=== PATIENT | female | born 1980 | race Caucasian/White ===

== ENCOUNTER 2023-07-15 15:36 | Outpatient (OUT) | payer BC, SELFPAY ==
--- NOTE | 2023-07-15 15:44 | MM_ITS ---
Patient: RHONDA WYATT Exam Date: 07/15/2023 : 1980 Gender:F Ordering : DR LISA MITCHELL M.D. Admission #: [id number] Family : Order #: [id number] CLICK HERE TO VIEW EXAM RADIOLOGY REPORT PROCEDURE: MM TOMOSYNTHESIS SCREENING BI COMPARISON: MG MAMM SCREEN 3D MELISSA CAD, 03/15/2021. MG MAMM SCREEN 3D MELISSA CAD, 06/19/2022. INDICATIONS: Screening mammogram Z12.31 Calculator Name NCI Breast Cancer Risk Assessment Tool 5 Year Breast Cancer Risk 0.70% Lifetime Breast Cancer Risk 8.70% Personal Breast Cancer No Personal Ovarian Cancer No Treatments None Family Cancers Aunt-maternal with breast cancer at age 55; Sister with cervical cancer at age 40; Father with lymphoma cancer at age 55; Grandfather-maternal with brain, lung cancer at age 70. LOCATION: [facility] BREAST COMPOSITION: Scattered areas fibroglandular density. FINDINGS: DIAGNOSTIC CATEGORY 1--NEGATIVE. NO CHANGE FROM COMPARISON ASSESSMENT. Scattered benign-appearing calcifications are present. Scattered benign-appearing lymph nodes are present. RIGHT BREAST: No significant suspicious finding. LEFT BREAST: No significant suspicious finding. RECOMMENDATIONS: ROUTINE MAMMOGRAM AND CLINICAL EVALUATION IN 12 MONTHS. PLEASE NOTE: A NORMAL MAMMOGRAM DOES NOT EXCLUDE THE POSSIBILITY OF BREAST CANCER. A CLINICALLY SUSPICIOUS PALPABLE LUMP SHOULD BE BIOPSIED. Dictated by: Yasmani Camacho MD on 07/16/2023 at 08:57 Approved by: Yasmani Camacho MD on 07/16/2023 at 09:13
== END 2023-07-15 15:37 | disposition home or self-care (01) ==
PROVIDERS: PCP Family Medicine; Visit Provider Family Medicine
DX: Z12.31 Encounter for screening mammogram for malignant neoplasm of breast (principal)
CPT/HCPCS: 77063; 77067

== ENCOUNTER 2023-12-17 15:36 | Outpatient (OUT) | payer BC, SELFPAY | END 2023-12-17 15:37 | disposition home or self-care (01) | LOC: LAB 15:36 | PROVIDERS: PCP Family Medicine; Visit Provider Family Medicine | DX: Z83.2 Family history of diseases of the blood and blood-forming organs and certain disorders involving the immune mechanism (principal) | CPT/HCPCS: 36415; 85210 ==

== ENCOUNTER 2024-01-28 20:27 | Outpatient (OUT) | payer BC, SELFPAY ==
--- OUTSIDE RECORDS SUMMARY | 2024-01-28 20:32 | XMS_ITS | CCD ---
Author Organization [facility] Care Team Providers Care Formula Clerk Name Role Phone Julia Mitchell Unavailable PAULA, DR JULIA Sandoval Primary Care Unavailable WEST, DR HERMANN Fernandez Admitting Unavailable WEST, DR HERMANN Fernandez Attending Unavailable WEST, DR HERMANN Fernandez Consulting Unavailable MITCHELL, DR JULIA Sandoval Primary Care Unavailable WEST, DR HERMANN Fernandez Admitting Unavailable WEST, DR HERMANN Fernandez Attending Unavailable WEST, DR HERMANN Fernandez Consulting Unavailable TIMMIS, DR CASTILLO Admitting Unavailable TIMMIS, DR CASTILLO Attending Unavailable TIMMIS, DR CASTILLO Consulting Unavailable MITCHELL, DR JULIA Sandoval Primary Care Unavailable ZIEBER, DR CLIFTON Alfonso Consulting Unavailable OBLIVAR ., DR GUERRERO Admitting Unavailable BOLIVAR ., DR GUERRERO Attending Unavailable BOLIVAR ., DR GUERRERO Consulting Unavailable MITCHELL, DR JULIA Sandoval Primary Care Unavailable MITCHELL, DR JULIA Sandoval Primary Care Unavailable BOLIVAR ., DR GUERRERO Admitting Unavailable BOLIVAR ., DR GUERRERO Attending Unavailable BOLIVAR ., DR GUERRERO Consulting Unavailable ZIEBER, DR CLIFTON Alfonso Consulting Unavailable MITCHELL, DR JULIA Sandoval Primary Care Unavailable TIMMIS, DR CASTILLO Admitting Unavailable TIMMIS, DR CASTILLO Attending Unavailable TIMMIS, DR CASTILLO Consulting Unavailable WEST, DR HERMANN Fernandez Consulting Unavailable MITCHELL, DR JULIA Sandoval Primary Care Unavailable MITCHELL, DR JULIA Sandoval Consulting Unavailable MITCHELL, DR JULIA Sandoval Admitting Unavailable MITCHELL, DR JULIA Sandoval Attending Unavailable Allergies Allergy Classification Reported Allergen(s) Allergy Type Date of Onset Reaction(s) Facility (1 source) Bacitracin Drug Allergy 9 [facility] Repository (2 sources) patient allergy list reviewed by nurse or physicia Propensity to adverse reactions 9 Comment:Done [facility] Other (2 sources) Allergies Reconciled Propensity to adverse reactions Unknown [facility] Other Medications Current Medications Medication Drug Class(es) Dates Sig (Normalized) Sig (Original) levothyroxine sodium 0.125 mg oral tablet (3 sources) l-Thyroxine take 1 tablet by mouth once daily in the morning Levothyroxine Sodium 125 MCG 1 tablet in the morning on an empty stomach Orally Once a day Active take 1 tablet by stefan th once daily in the morning Levothyroxine Sodium 125 MCG 1 tablet in the morning on an empty stomach Orally Once a day Active 24 hr metoprolol succinate 50 mg extended release oral tablet (6 sources) beta-Adrenergic Dustin take 1 tablet by mouth once daily Metoprolol Succinate ER 50 MG TAKE 1 TABLET BY MOUTH EVERY DAY for 90 Active take 1 capsule by mouth once vicenta ly Metoprolol Succinate 50 MG 1 capsule Orally Once a day Active Completed/Discontinued Medications Medication Drug Class(es) Dates Sig (Normalized) Sig (Original) 21 day ethinyl estradiol 0.332103 mg/hr / etonogestrel 0.005 mg/hr vaginal system (5 sources) Progestin, Estrogen NuvaRing 0.1 2-0.015 MG/24HR [address] for 3 weeks, remove, and replace with a new ring after 7 day break Vaginal Not-Taking Problems Active Problems Problem Classification Problem Date Documented Date Episodic/Chronic Anxiety disorders (8 sources) Anxiety; Translations: [Anxiety disorder, unspecified] Chronic Chronic obstructive pulmonary disease and bronchiectasis (2 sources) Bronchitis; Translations: [Bronchitis, not specified as acute or chronic] Episodic Complication of device; implant or graft (2 sources) Unspecified complication of genitourinary prosthetic device, implant and graft, initial encounter; Translations: [Unsp complication of genitourinary prosth dev/grft, init] Episodic Contraceptive and procreative management (4 sources) Surveillance of intrauterine device contraception; Translations: [Encounter for routine checking of intrauterine contraceptive device] Resolved: 04-10-2022 Episodic Essential hypertension (9 sources) Hypertensive disorder; Translations: [Essential (primary) hypertension] Chronic Other nutritional; endocrine; and metabolic disorders (8 sources) Obesity; Translations: [Obesity, unspecified] Chronic Other nutritional; endocrine; and metabolic disorders (6 sources) Obese class I; Translations: [Body mass index (BMI) 33.0-33.9, adult] Chronic Other and delivery including normal (2 sources) test positive; Translations: [Encounter for test, result positive] Episodic Other screening for suspected conditions (not mental disorders or infectious disease) (9 sources) Encounter for screening mammogram for malignant neoplasm of breast; Translations: [Encounter for screening for malignant neoplasm of cervix] Onset: 04-10-2022 Episodic Residual codes; unclassified (1 source) Family history of diseases of the blood and blood-forming organs and certain disorders involving the immune mechanism Episodic Thyroid disorders (20 sources) Franco thyroiditis; Translations: [Autoimmune thyroiditis] Onset: 02-08-2019 Chronic Past or Other Problems Problem Classification Problem Date Documented Date Episodic/Chronic Immunizations and screening for infectious disease (1 source) Encounter for screening for human papillomavirus (HPV); Translations: [ENC SCREENING HUMAN PAPILLOMAVIRUS] Onset: 04-13-2022 Episodic Other nutritional; endocrine; and metabolic disorders (2 sources) Obese class II; Translations: [Body mass index (BMI) 36.0-36.9, adult] Resolved: 04-10-2022 Chronic Residual codes; unclassified (1 source) Family history of malignant neoplasm of breast; Translations: [FAMILY HX MALIG NEOPLASM OF BREAST] Onset: 06-21-2022 Episodic Residual codes; unclassified (1 source) Family history of malignant neoplasm of other genital organs; Translations: [FAM HX MALIG NEOPLSM OTH GENIT ORGN] Onset: 06-21-2022 Episodic Residual codes; unclassified (1 source) Family history of other malignant neoplasms of lymphoid, hematopoietic and related tissues; Translations: [FAM HX OTH MAL RICH LYMPH HEMATPOETC] Onset: 06-21-2022 Episodic Residual codes; unclassified (1 source) Family history of malignant neoplasm of trachea, bronchus and lung; Translations: [FAM HX MALIG NEOPLSM TRACH BRON LNG] Onset: 06-21-2022 Episodic Residual codes; unclassified (1 source) Family history of malignant neoplasm of other organs or systems; Translations: [FAM HX MALIG NEOPLASM OTH ORGN/SYS] Onset: 06-21-2022 Episodic Results Test Name Value Interpretation Reference Range Facility US THYROIDon 01-26-2023 US THYROID EXAMINATION: US THYROID HISTORY: Non-toxic multinodular goiter COMPARISON: 02/08/2022 TECHNIQUE: Sonographic images of the thyroid gland were obtained. FINDINGS: The right thyroid lobe is surgically absent. Area of soft tissue in the right thyroid fossa measuring 1.5 x 0.9 x 1.0 cm, residual versus recurrent tissue versus postsurgical change, stable The thyroid isthmus measures 2 mm, heterogeneous. No focal nodule. The left thyroid lobe measures 4.2 x 2.3 x 2.2 cm. Very heterogeneous echotexture. Single nodule. Nodule 1:1.3 x 1.2 x 1.0 cm. Mixed solid and cystic, hypoechoic, wide, smooth margins, no calcifications. TR 3 IMPRESSION: Stable 1.3 cm left thyroid TR 3 nodule TI-RADS: The [employer] TI-RADS committee's white paper recommendations for thyroid lesions classified as TR3 (mildly suspicious) are listed below: > 1.5 cm. Follow-up ultrasound in 1, 3, and 5 years. > 2.5 cm. FNA. J. Am Marcella Radiol 2017;14:[id number]. Electronically authenticated by: HERMANN GUZMAN Date: 2023-01-26 09:07 Normal [facility] CBC AUTO DIFFon 11-16-2022 BASO # 0.0 103/ul Normal 0.0-0.1 [facility] Comment on above: Performed By: #### C BC #### [facility] [address] [place] [address] Dr. Chanel Manriquez Basophils/100 WBC (Bld) 0.6 % Normal 0.2-2.0 [facility] Comment on above: Performed By: #### C BC #### [facility] [address] [place] [address] Dr. Chanel Manriquez EO # 0.3 103/ul Normal 0.0-0.7 [facility] Comment on above: Performed By: #### C BC #### [facility] [address] [address] [address] Chanel Manriquez Eosinophils/100 WBC (Bld) 4.9 % Normal 0.9-7.0 [facility] Comment on above: Performed By: #### C BC #### [facility] [address] [place] [address] Dr. Chanel Manriquez Erythrocyte distribution width (RBC) [Ratio] 13.1 % Normal 11.0-15.0 [facility] Comment on above: Performed By: #### C BC #### [facility] [address] [place] [address] Dr. Chanel Manriquez Hematocrit (Bld) [Volume fraction] 39.7 % Normal 36.0-48.0 [facility] Comment on above: Performed By: #### C BC #### [facility] [address] [place] [address] Dr. Chanel Manriquez Hemoglobin (Bld) [Mass/Vol] 13.5 g/dL Normal 12.0-16.0 [facility] Comment on above: Performed By: #### C BC #### [facility] [address] [place] [address] Dr. Chanel Manriquez IG # 0.02 10e3/ul Normal 0.00-0.03 [facility] Comment on above: Performed By: #### C BC #### [facility] [address] [place] [address] Dr. Chanel Manriquez IG % 0.3 % Normal 0.0-0.5 [facility] Comment on above: Performed By: #### C BC #### [facility] [address] [place] [address] Dr. Chanel Manriquez LYMPH # 1.2 103/ul Normal 1.2-3.8 [facility] Comment on above: Performed By: #### C BC #### [facility] [address] [place] [address] Dr. Chanel Manriquez Lymphocytes/100 WBC (Bld) 18.5 % Critically low 20.5-60.0 [facility] Comment on above: Performed By: #### C BC #### [facility] [address] [place] [address] Dr. Chanel Manriquez MANUAL DIFF REQ NO Normal [facility] Comment on above: Performed By: #### C BC #### [facility] [address] [place] [address] Dr. Chanel Manriquez MCH (RBC) [Entitic mass] 28.9 pg Normal 26.7-34.0 [facility] Comment on above: Performed By: #### C BC #### [facility] [address] [address] [address] Chanel Manriquez MCHC (RBC) [Mass/Vol] 34.0 g/dL Normal 29.9-35.2 [facility] Comment on above: Performed By: #### C BC #### [facility] [address] [place] [address] Dr. Chanel Manriquez MCV (RBC) [Entitic vol] 85.0 fL Normal 81.0-99.0 [facility] Comment on above: Performed By: #### C BC #### [facility] [address] [place] [address] Dr. Chanel Manriquez MONO # 0.7 103/ul Normal 0.3-0.8 [facility] Comment on above: Performed By: #### C BC #### [facility] [address] [place] [address] Dr. Chanel Manriquez Monocytes/100 WBC (Bld) 10.7 % Normal 1.7-12.0 [facility] Comment on above: Performed By: #### C BC #### [facility] [address] [place] [address] Dr. Chanel Manriquez NEUT # 4.1 103/ul Normal 1.4-6.5 [facility] Comment on above: Performed By: #### C BC #### [facility] [address] [place] [address] Dr. Chanel Manriquez Neutrophils/100 WBC (Bld) 65.0 % Normal 43.0-75.0 [facility] Comment on above: Performed By: #### C BC #### [facility] [address] [place] [address] Dr. Chanel Manriquez Platelet mean volume (Bld) [Entitic vol] 9.3 fL Critically low 9.5-13.5 [facility] Comment on above: Performed By: #### C BC #### [facility] [address] [place] [address] Dr. Chanel Manriquez PLT 271 103/ul Normal 150-450 [facility] Comment on above: Performed By: #### C BC #### [facility] [address] [address] [address] Chanel Manriquez RBC 4.67 106/ul Normal 4.20-5.40 [facility] Comment on above: Performed By: #### C BC #### [facility] [address] [address] [address] Chanel Manriquez WBC 6.3 103/ul Normal 4.0-11.0 [facility] Comment on above: Performed By: #### C BC #### [facility] [address] [place] [address] Dr. Chanel Manriquez GLYCOHEMOGLOBIN A1Con 2022 ADA RECOMMENDATION SEE BELOW Normal [facility] Comment on above: Result Comment: ADA RECOMMENDED LIMIT 4.0 - 6.0 ADA THERAPEUTIC TARGET < 7.0 ACTION SUGGESTED > 7.0 Performed By: #### A 1C #### [facility] [address] [place] [address] Dr. Chanel Manriquez Glucose [Mass/Vol] 108 mg/dL Normal [facility] Comment on above: Performed By: #### A 1C #### [facility] [address] [place] [address] Dr. Chanel Manriquez HbA1c (Bld) [Mass fraction] 5.4 % Normal 4.5-6.2 [facility] Comment on above: Performed By: #### A 1C #### [facility] [address] [place] [address] Dr. Chanel Manriquez LIPID PROFILEon 11-16-2022 CHOL-HDL RATIO NORM SEE BELOW Normal [facility] Comment on above: Result Comment: 3.3 - 4.4 LOW RISK 4.4 - 7.1 AVERAGE RISK 7.1 - 11.0 MODERATE RISK >11.0 HIGH RISK Performed By: #### T SH, CMP, LIPID #### [facility] [address] [place] [address] Dr. Chanel Manriquez Cholesterol [Mass/Vol] 135 mg/dL Normal <=200 [facility] Comment on above: Performed By: #### T SH, CMP, LIPID #### [facility] [address] [place] [address] Dr. Chanel Manriquez Cholesterol in HDL [Mass/Vol] 40 mg/dL Normal 40-60 [facility] Comment on above: Performed By: #### T SH, CMP, LIPID #### [facility] [address] [address] [address] Chanel Manriquez Cholesterol in LDL [Mass/Vol] 80.4 mg/dL Normal [facility] Comment on above: Performed By: #### T SH, CMP, LIPID #### [facility] [address] [address] [address] Chanel Manriquez Cholesterol.total/Cho lesterol in HDL [Mass ratio] 3.4 {ratio} Normal [facility] Comment on above: Performed By: #### T SH, CMP, LIPID #### [facility] [address] [place] [address] Dr. Chanel Manriquez HDL NORMAL > or = 60 mg/dl - LO W CARDIOVASCULAR RISK <40 mg/dl - HIGH CARDIOVASCULAR RISK Normal [facility] Comment on above: Performed By: #### T SH, CMP, LIPID #### [facility] [address] [place] [address] Dr. Chanel Manriquez LDL CALC NORMAL SEE BELOW Normal [facility] Comment on above: Result Comment: <100 mg/dl OPTIMAL 100 - 129 mg/dl NEAR OR ABOVE OPTIMAL 130 - 159 mg/dl BORDERLINE HIGH 160 - 189 mg/dl HIGH >190 mg/dl VERY HIGH Performed By: #### T SH, CMP, LIPID #### [facility] [address] [place] [address] Dr. Chanel Manriquez Triglyceride [Mass/Vol] 73 mg/dL Normal <=150 [facility] Comment on above: Performed By: #### T SH, CMP, LIPID #### [facility] [address] [place] [address] Dr. Chanel Manriquez VLDL CALC 14.6 mg/dL Normal [facility] Comment on above: Performed By: #### T SH, CMP, LIPID #### [facility] [address] [place] [address] Dr. Chanel Manriquez PROF 14(COMP METB)on 01-14-2 023 Albumin [Mass/Vol] 3.4 g/dL Normal 3.4-5.0 [facility] Comment on above: Performed By: #### T SH, CMP, LIPID #### [facility] [address] [address] [address] Chanel Manriquez Albumin/Globulin [Mass ratio] 0.9 {ratio} Normal [facility] Comment on above: Performed By: #### T SH, CMP, LIPID #### [facility] [address] [address] [address] Chanel Manriquez ALP [Catalytic activity/Vol] 62 U/L Normal 46-116 [facility] Comment on above: Performed By: #### T CAROL, CMP, LIPID #### [facility] [address] [address] [address] Chanel Manriquez ALT [Catalytic activity/Vol] 17 U/L Normal 14-59 [facility] Comment on above: Performed By: #### T CAROL, CMP, LIPID #### [facility] [address] [address] [address] Chanel Manriquez Anion gap [Moles/Vol] 10.5 mmol/L Normal [facility] Comment on above: Performed By: #### T CAROL, CMP, LIPID #### [facility] [address] [address] [address] Chanel Manriquez AST [Catalytic activity/Vol] 15 U/L Normal 15-37 [facility] Comment on above: Performed By: #### T CAROL, CMP, LIPID #### [facility] [address] [address] [address] Chanel Manriquez Bilirubin [Mass/Vol] 0.5 mg/dL Normal 0.2-1.0 [facility] Comment on above: Performed By: #### T SH, CMP, LIPID #### [facility] [address] [address] [address] Chanel Manriquez Calcium [Mass/Vol] 8.7 mg/dL Normal 8.5-10.1 [facility] Comment on above: Performed By: #### T SH, CMP, LIPID #### [facility] [address] [address] [address] Chanel Manriquez Chloride [Moles/Vol] 104 mmol/L Normal 98-107 [facility] Comment on above: Performed By: #### T SH, CMP, LIPID #### [facility] [address] [address] [address] Chanel Manriquez CO2 [Moles/Vol] 28.4 mmol/L Normal 21.0-32.0 [facility] Comment on above: Performed By: #### T SH, CMP, LIPID #### [facility] [address] [place] [address] Dr. Chanel Manriquez Creatinine [Mass/Vol] 0.79 mg/dL Normal 0.55-1.02 [facility] Comment on above: Performed By: #### T CAROL, CMP, LIPID #### [facility] [address] [place] [address] Dr. Chanel Manriquez EGFR-AF CUBAN >60 Normal >=60 [facility] Comment on above: Performed By: #### T CAROL, CMP, LIPID #### [facility] [address] [place] [address] Dr. Chanel Manriquez EGFR-NON AF CUBAN >60 Normal >=60 [facility] Comment on above: Performed By: #### T CAROL CMP, LIPID #### [facility] [address] [place] [address] Dr. Chanel Manriquez Globulin (S) [Mass/Vol] 3.9 g/dL Normal [facility] Comment on above: Performed By: #### T CAROL, CMP, LIPID #### [facility] [address] [place] [address] Dr. Chanel Manriquez Glucose [Mass/Vol] 101 mg/dL Normal 74-106 [facility] Comment on above: Performed By: #### T SH, CMP, LIPID #### [facility] [address] [place] [address] Dr. Chanel Manriquez Potassium [Moles/Vol] 3.9 mmol/L Normal 3.5-5.1 [facility] Comment on above: Performed By: #### T SH, CMP, LIPID #### [facility] [address] [address] [address] Chanel Manriquez Protein [Mass/Vol] 7.3 g/dL Normal 6.4-8.2 [facility] Comment on above: Performed By: #### T SH, CMP, LIPID #### [facility] [address] [address] [address] Chanel Manriquez Sodium [Moles/Vol] 139 mmol/L Normal 136-145 [facility] Comment on above: Performed By: #### T SH, CMP, LIPID #### [facility] [address] [address] [address] Chanel Manriquez Urea nitrogen [Mass/Vol] 13.0 mg/dL Normal 7.0-18.0 [facility] Comment on above: Performed By: #### T SH, CMP, LIPID #### [facility] [address] [address] [address] Chanel Manriquez Urea nitrogen/Creatinine [Mass ratio] 16.5 mg/mg Normal [facility] Comment on above: Performed By: #### T SH, CMP, LIPID #### [facility] [address] [address] [address] Chanel Manriquez TSHon 11-16-2022 TSH 3.672 uIU/mL Normal 0.358-3.740 [facility] Comment on above: Performed By: #### T SH, CMP, LIPID #### [facility] [address] [address] [address] Chanel Manriquez MG MAMM SCREEN 3D MELISSA CADon 06-19-2022 MG MAMM SCREEN 3D MELISSA CAD Patient: RHONDA WYATT Exam Date: 06/19/2022 : 1980 Gender:F Ordering : DR CESAR LUTZ . Admission #: [id number] Family : DR JULIA MITCHELL M.D. Order #: [id number] CLICK HERE TO VIEW EXAM RADIOLOGY REPORT PROCEDURE: MAMMOGRAM SCREENING 3D BILATERAL CAD COMPARISON: MG MAMM SCREEN 3D MELISSA CAD, 03/15/2021. MG MAMM SCREEN MELISSA W CAD, 09/14/2019. INDICATIONS: Screening mammography Calculator Name NCI Breast Cancer Risk Assessment Tool 5 Year Breast Cancer Risk 0.60% Lifetime Breast Cancer Risk 8.80% Personal Breast Cancer No Personal Ovarian Cancer No Treatments None Family Cancers Aunt-maternal with breast cancer at age 55; Sister with cervical cancer at age 40; Father with lymphoma cancer at age 55; Grandfather-maternal with brain, lung cancer at age 70. LOCATION: [facility] BREAST COMPOSITION: Scattered areas fibroglandular density. FINDINGS: DIAGNOSTIC CATEGORY 1--NEGATIVE. RIGHT BREAST: No significant suspicious finding. No significant change has occurred. LEFT BREAST: No significant suspicious finding. No significant change has occurred. RECOMMENDATIONS: ROUTINE MAMMOGRAM AND CLINICAL EVALUATION IN 12 MONTHS. PLEASE NOTE: A NORMAL MAMMOGRAM DOES NOT EXCLUDE THE POSSIBILITY OF BREAST CANCER. A CLINICALLY SUSPICIOUS PALPABLE LUMP SHOULD BE BIOPSIED. Dictated by: Clifton Huntley M.D. on 06/20/2022 at 14:00 Approved by: Clifton Huntley M.D. on 06/20/2022 at 14:07 Normal [facility] PAP ACOG PANEL 2: 30 to 65on 04-16-2022 . . Normal [facility] Comment on above: Result Comment: Perf ormed at: WB Performed By: #### [id number] #### [facility] [address] [address] [address] Chanel Manriquez Age Gdln ACOG Testing 30-65 Normal [facility] Comment on above: Performed By: #### [id number] #### [facility] [address] [address] [address] Chanel Manriquez DIAGNOSIS: Comment Normal [facility] Comment on above: Result Comment: NEGA TIVE FOR INTRAEPITHELIAL LESION OR MALIGNANCY. Performed at: WB Performed By: #### [id number] #### [facility] [address] [address] [address] Chanel Manriquez HPV Aptima Negative Normal Negative [facility] Comment on above: Result Comment: This nucleic acid amplification test detects fourteen high-risk HPV types (16,18,31,33,35,39,45,51,52,56,58,59,66,68) without differentiation. Performed at: =G Performed By: #### [id number] #### [facility] [address] [place] [address] Dr. Chanel Manriquez Methodology: Comment Normal [facility] Comment on above: Result Comment: This liquid based ThinPrep(R) pap test was screened with the use of an image guided system. Performed at: WB Performed By: #### [id number] #### [facility] [address] [place] [address] Dr. Chanel Manriquez Note: Comment Normal [facility] Comment on above: Result Comment: The Pap smear is a screening test designed to aid in the detection of premalignant and malignant conditions of the uterine cervix. It is not a diagnostic procedure and should not be used as the sole means of detecting cervical cancer. Both false-positive and false-negative reports do occur. . Performed at: WB Performed By: #### [id number] #### [facility] [address] [place] [address] Dr. Chanel Manriquez Performed by: Comment Normal [facility] Comment on above: Result Comment: Jasbir Young, Tankage Supervisor (ASCP) Performed at: [facility] Performed By: [id number] #### [facility] [address] [place] [address] Dr. Chanel Manriquez Specimen adequacy: Comment Normal [facility] Comment on above: Result Comment: Sati sfactory for evaluation. Endocervical and/or squamous metaplastic cells (endocervical component) are present. Performed at: [facility] Performed By: #### [id number] #### [facility] [address] [place] [address] Dr. Chanel Manriquez US THYROIDon 02-09-2022 US THYROID EXAMINATION: US THYROID HISTORY: Non-toxic multinodular goiter COMPARISON: Ultrasound thyroid 08/06/2021 FINDINGS: RIGHT LOBE: Prior right lobectomy. Slightly heterogeneous soft tissue within right thyroid bed, 1.3 x 0.6 x 0.7 cm. LEFT LOBE: Contains a 1.2 cm TR 4 nodule. Heterogeneous, hypervascular lobe. Lobe size: 4.1 x 2.3 x 2.0 cm ISTHMUS: Slightly heterogeneous echotexture, but normal size. Thickness: 3 mm IMPRESSION: 1. History of right lobectomy. Stable residual tissue within the right lobe. No overtly suspicious findings. 2. Stable hypervascular markedly heterogeneous left lobe, which also contains a stable TR4 1.2 cm nodule. Follow-up imaging in one year is recommended. TR 4: The [employer] TI-RADS committee's white paper recommendations for thyroid lesions classified as TR4 (moderately suspicious) are listed below: > 1.0 cm. Follow-up ultrasound in 1, 2, 3, and 5 years. > 1.5 cm. FNA. J. Am Marcella Radiol 2017;14:587-595. Electronically authenticated by: CLIFTON HUNTLEY Date: 2022-02-09 10:40 Normal [facility] SURGICAL PATHOLOGYon 019 SURGICAL PATHOLOGY Specimen #: [id number] Submitting Physician: GIDEON PRYOR MD FINAL DIAGNOSIS Outside slides [id number], [id number], B1; 04/06/2019; [facility], [place]: 1. 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 - Chronic lymphocytic thyroiditis with lymphoepithelial cysts, patchy fibrosis and reactive epithelial atypia. - Parathyroid gland tissue. - See comment. 2. Anterior compartment dissection specimen, excision (B): - Lymph node, negative for neoplasm. COMMENT Thank you for sharing this challenging case. There is a microscopic focus of papillary thyroid carcinoma (0.2 cm) on slide A9. It is the infiltrative follicular variant. Although these cells have abundant eosinophilic cytoplasm, they are not quite tall. Lymphovascular invasion and extrathyroidal extension were not identified. This carcinoma does not involve the inked edges of the tissue sections. Dr. Vicki Badillo, a colleague on the [facility] head and neck pathology service was consulted, and she agrees with the diagnoses. If you would like to discuss this case, please contact my office at [phone]. [facility]/kmr 04/12/19 Efraín Wayne M.D. (Electronic Signature) ____ SPECIMEN SUBMITTED A: 17 SLIDES ([id number]) CLINICAL DATA None provided. SLIDE/BLOCK DESCRIPTION A. 17 SLIDES ([id number]): Date of Report: 04/13/2019 Date of Procedure: 04/09/2019 Date of Receipt: 04/09/2019 Submitted by: GIDEON PRYOR MD Location: Diagnostic interpretation performed at [facility], [address] [place] [address]. CLIA Number: [id number] Normal [facility] Comment on above: Performed By: #### S #### See report for performing lab information. Vital Signs Date Time Vital Sign Value Performing Clinician Facility 12-08-2023 15:00-0500 Body height 154.94 cm Julia Mitchell Other [facility] 12-08-2023 15:00-0500 Body mass index (BMI) [Ratio] 35.33 kg/m2 Julia Mitchell Other [facility] 12-08-2023 15:00-0500 Body weight 84.82 kg Julia Mitchell Other [facility] Other 12-08-2023 15:00-0500 Diastolic blood pressure 81 mm[Hg] Julia Mitchell Other [facility] Other 12-08-2023 15:00-0500 Systolic blood pressure 121 mm[Hg] Julia Mitchell Other [facility] Other 02-04-2023 11:00-0400 Body height 154.94 cm Julia Mitchell Other [facility] Other 02-04-2023 11:00-0400 Body mass index (BMI) [Ratio] 35.9 kg/m2 Julia Mitchell Other [facility] Other 02-04-2023 11:00-0400 Body weight 86.18 kg Julia Mitchell Other [facility] Other 02-04-2023 11:00-0400 Diastolic blood pressure 82 mm[Hg] Julia Mitchell Other [facility] Other 02-04-2023 11:00-0400 SaO2% (BldA) [Mass fraction] 97 % Julia Mitchell Other [facility] Other 02-04-2023 11:00-0400 Systolic blood pressure 122 mm[Hg] Julia Mitchell Other [facility] Other 11-21-2022 16:00-0500 Body height 154.94 cm Julia Mitchell Other [facility] Other 11-21-2022 16:00-0500 Body mass index (BMI) [Ratio] 36.46 kg/m2 Julia Mitchell Other [facility] Other 11-21-2022 16:00-0500 Body weight 87.54 kg Julia Mitchell Other [facility] Other 11-21-2022 16:00-0500 Diastolic blood pressure 88 mm[Hg] Julia Mitchell Other [facility] Other 11-21-2022 16:00-0500 SaO2% (BldA) [Mass fraction] 97 % Julia Mitchell Other [facility] Other 11-21-2022 16:00-0500 Systolic blood pressure 132 mm[Hg] Julia Mitchell Other [facility] Other Encounters Encounter Date Encounter Type Care Provider Facility Start: 12-08-2023 End: 12-08-2023 ambulatory Julia Mitchell Other [facility] Other Start: 12-08-2023 Encounter for genera l adult medical examination without abnormal findings Julia Mitchell [facility] Start: 12-08-2023 Periodic preventive med est patient 40-64yrs Julia Mitchell [facility] Start: 07-02-2023 End: 07-02-2023 ambulatory Julia Mitchell Other [facility] Other Start: 07-02-2023 Telephone encounter Julia Mitchell [facility] Start: 02-04-2023 End: 02-04-2023 ambulatory Julia Mitchell Other [facility] Other Start: 02-04-2023 Office outpatient vi sit 15 minutes Julia Mitchell [facility] Start: 01-31-2023 End: 01-31-2023 ambulatory Julia Mitchell Other [facility] Other Start: 01-31-2023 Telephone encounter Julia Mitchell [facility] Start: 01-25-2023 End: 01-26-[address] JULIA MITCHELL Facility:[facility] Start: 01-15-[address] JULIA MITCHELL Facil ity:[facility] Start: 11-22-2022 Encounter for genera l adult medical examination without abnormal findings DR JULIA MITCHLEL [facility] Start: 11-21-2022 End: 11-21-2022 ambulatory Julia Mitchell Other [facility] Other Start: 11-21-2022 Encounter for genera l adult medical examination without abnormal findings Julia Mitchell [facility] Start: 11-21-2022 Periodic preventive med est patient 40-64yrs Julia Mitchell [facility] Start: 11-16-2022 End: 11-17-[address] JULIA MITCHELL Facility:[facility] Start: 11-16-2022 End: 11-17-2022 Encounter for general adult medical examination without abnormal findings DR JULIA MITCHELL Facility:[facility] Start: 11-13-2022 End: 11-13-2022 ambulatory Julia Mitchell Other [facility] Other Start: 11-13-2022 Encounter for genera l adult medical examination without abnormal findings Julia Mitchell [facility] Start: 11-13-2022 Telephone encounter Julia Mitchell [facility] Start: 08-13-2022 End: 11-22-[address] JULIA MITCHELL Facility:[facility] Start: 06-19-2022 End: 06-20-[address] JULIA MITCHELL Facility:[facility] Start: 04-10-2022 End: 04-10-[address] CESAR LUTZ . Facility:[facility] Start: 04-10-2022 Gynecological examin ation normal Julia Mitchell Other [facility] Other Start: 02-08-2022 End: 02-09-[address] JONATHAN FERNÁNDEZ Facility:[facility] Start: 03-13-2021 Adult health examination Lou isra Paula Other [facility] Other Procedures Date Procedure Procedure Detail Performing Clinician Start: 04-10-2022 Screening for malign ant neoplasm of breast Julia Mitchell Other Start: 10-30-2021 Removal of intrauter ine device Julia Mitchell Other Start: 02-15-2019 General examination of patient Julia Mitchell Other Contraception care education Julia Mitchell Other Insertion of intraut erine contraceptive device Julia Mitchell Other Screening for malign ant neoplasm of skin Julia Mitchell Other Payers Date Payer Category Payer [facility] [id number] 2019 Unknown [id number] 1980 Unknown [id number] 2.16.84 [id number] 1980 Unknown [id number] 2.16.84 [id number] 1978 Unknown [id number] 2.16.84 [id number] 1978 Unknown [id number] 2.16.84 [id number] 1978 Unknown [id number] 2.16.84 [id number] 1978 Unknown [id number] 2.16.84 [id number] 1978 Unknown [id number] 2.16.84 [id number] 1961 Self-pay Social History Date Type Detail Facility Sex Assigned At [facility] Other Evaluation note 12-08-2023 Note Date & Type Note Facility 12-08-2023 Evaluation note Encounter Date Diagnosis Assessment Notes Dec, Well adult exam (ICD-10 - Z00.00) We have discussed the necessity of following up with PCP regularly as well as specialists, as needed. Discussed F/U with dentistry and optometry at least yearly. Discussed all preventative measures/ cancer screenings as applicable to this patient. Emphasized the importance of a reduced fat, low carb diet to promote heart health and controlled blood sugars. Reviewed social history and ensured patient is safe within the home today. Pt denies any abuse of alcohol, nicotine, caffeine or recreational drugs. I have ensured patient is of stable mental and physical health today. We have discussed appropriate F/U schedule as well as blood work and vaccinations that apply. All questions answered and patient is sent home pleased, without concerns. Dec, Family history of clotting disorder (ICD-10 - Z83.2) Handwrote order for prothrombin gene mutation factor 2 test at the lab. Discussed potential referral to hematology for further guidance if her test is positive. [facility] Other Evaluation note 07-02-2023 Note Date & Type Note Facility 07-02-2023 Evaluation note Encounter Date Diagnosis Assessment Notes Jun, Screening mammogram for breast cancer (ICD-10 - Z12.31) [facility] Other Evaluation note 02-04-2023 Note Date & Type Note Facility 02-04-2023 Evaluation note Encounter Date Diagnosis Assessment Notes Feb, Hypertension (ICD-10 - I10) Present readings are normal. Continue present med. Discussed decreasing salt and starting exercise to improve BP. Would not add or increase BP med at this time. Pt in agreement. [facility] Other Evaluation note 11-21-2022 Note Date & Type Note Facility 11-21-2022 Evaluation note Encounter Date Diagnosis Assessment Notes Nov, Well adult exam (ICD-10 - Z00.00) Personalized health advice was given to the beneficiary to health education of preventative counseling services or programs aimed at reducing identified risk factors and improving self-management or community-based lifestyle interventions to reduce health risks and promote self-management and wellness, including physical activity and nutrition. A written plan for screenings was discussed, flu vaccination, routine lab studies, eye exams, as well as risk factors for other medical problems. 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 [facility] Other Evaluation note 11-13-2022 Note Date & Type Note Facility 11-13-2022 Evaluation note Encounter Date Diagnosis Assessment Notes Nov, Wellness examination (ICD-10 - Z00.00) [facility] Other Evaluation note Note Date & Type Note Facility Evaluation note No Information [facility] Other History general Narrative - Reported Note Date & Type Note Facility History general Narrative - Reported Type Medical History [facility] Medical History Hshimoto's disease Medical History Hypertension Medical History Hypothyroidism Medical History Anxiety Surgical History C section x2 Surgical History Right Carpal Tunnel Surgical History Thyroidectomy (right) Surgical History Thyroidectomy (piece of left) [facility] Other History general Narrative - Reported Note Date & Type Note Facility History general Narrative - Reported Type Medical History [facility] Medical History Hshimoto's disease Medical History Hypertension Medical History Hypothyroidism Medical History Anxiety Surgical History C section x2 Surgical History Right Carpal Tunnel Surgical History Thyroidectomy (right) Surgical History Thyroidectomy (piece of left) Hospitalization History SEE SURGICAL HX [facility] Other Summary Purpose Family History No Family History Records FoundNo Family History Records Found Advance Directives No Advanced Directives Records FoundNo Advanced Directives Records Found Additional Source Comments INFORMATION SOURCE (unrecogn ized section and content) DATE CREATED AUTHOR 04/14/2019 [facility] DATE CREATED AUTHOR AUTHOR'S ORGANIZ ATION 02/01/2023 [facility] REASON FOR VISIT (unrecogniz ed section and content) Lab orderswellnessBlood Pres sureBlood PressureNo Informationwellness FOR RECORDS PERTAINING TO PATIENTS WHO ARE OR HAVE BEEN ENROLLED IN A CHEMICAL DEPENDENCY/SUBSTANCEABUSE PROGRAM, SOME INFORMATION MAY BE OMITTED. This clinical summary was aggregated from multiple sources. Caution should be exercised in using it in the provision of clinical care. This summary normalizes information from multiple sources, and as a consequence, information in this document may materially change the coding, format and clinical context of patient data. In addition, data may be omitted in some cases. CLINICAL DECISIONS SHOULD BE BASED ON THE PRIMARY CLINICAL RECORDS. [employer] provides no warranty or guarantee of the accuracy or completeness of information in this document.
--- NOTE | 2024-01-28 20:33 | US_ITS ---
[address] [address] Patient Name: RHONDA WYATT MRN: [id number] date: 1980 Sex: F Assigned Patient Location: US Current Patient Location: Accession/Order Number: [id number] Exam Date: 01/28/2024 20:36 Report Date: 01/29/2024 07:34 At the request of: JONATHAN FERNÁNDEZ Procedure: US thyroid EXAMINATION: US thyroid HISTORY: PAPILLARY CARCINOMA OF THYROID C73 COMPARISON: 01/25/2023 TECHNIQUE: Sonographic images of the thyroid gland were obtained. FINDINGS: The right thyroid lobe is surgically absent. Identified in the right thyroid fossa is a 1.3 x 0.5 x 1.1 cm area of hypoechogenicity, postsurgical change versus residual/recurrent thyroid tissue The thyroid isthmus measures 1.8 mm. No focal nodule. The left thyroid lobe measures 3.8 x 2.0 x 1.7 cm., Regenia 6 echotexture with diffuse hypervascularity. Single focal nodule. Nodule 1:1.5 x 1.4 x 1.4 cm. Mixed solid and cystic, hypoechoic, wide, lobular margins, no calcifications. TR 4 Normal size normal morphology lymph node right thyroid fossa US/US thyroid IMPRESSION: Slight interval increase in size of a now 1.5 cm left thyroid TR 4 nodule Heterogeneous hypervascular thyroid lobe suggesting thyroiditis TI-RADS: The [employer] TI-RADS committee's white paper recommendations for thyroid lesions classified as TR4 (moderately suspicious) are listed below: > 1.0 cm. Follow-up ultrasound in 1, 2, 3, and 5 years. > 1.5 cm. FNA. J. Am Marcella Radiol 2017;14:587-595. Electronically authenticated by: HERMANN GUZMAN Date: 01/29/2024 07:34
== END 2024-01-28 20:28 | disposition home or self-care (01) ==
PROVIDERS: PCP Family Medicine; Visit Provider Otolaryngology
DX: C73 Malignant neoplasm of thyroid gland (principal)
CPT/HCPCS: 76536

== ENCOUNTER 2024-02-07 06:47 | Outpatient (OUT) | payer BC, SELFPAY ==
--- OUTSIDE RECORDS SUMMARY | 2024-02-07 06:49 | XMS_ITS | CCD ---
Author Organization [facility] Care Team Providers Care Distribution Lead Name Role Phone Julia Mitchell Unavailable PAULA, [...] Unavailable ZIEBER, DR CLIFTON [employer] Unavailable BOLIVAR ., DR GUERRERO Admitting Unavailable [...] (1 source) Bacitracin Drug Allergy 9 [facility] Repository (2 sources) patient allergy list reviewed by nurse or physicia Propensity to adverse reactions 9 Comment:Done [facility] Other (2 sources) Allergies Reconciled Propensity to adverse reactions Unknown [facility] Other Medications Current Medications Medication Drug Class(es) [...] (Normalized) Sig (Original) 21 day ethinyl estradiol 0.038737 mg/hr / etonogestrel 0.005 mg/hr vaginal system [...] immune mechanism Episodic Thyroid disorders (20 sources) Frnaco thyroiditis; Translations: [Autoimmune thyroiditis] Onset: 02-08-2019 Chronic [...] left thyroid TR 3 nodule TI-RADS: The [employer] TI-RADS committee's white paper recommendations for thyroid lesions classified as TR3 (mildly suspicious) are listed below: > 1.5 cm. Follow-up ultrasound in 1, 3, and 5 years. > 2.5 cm. FNA. J. Am Marcella Radiol 2017;14:587-595. Electronically authenticated by: HERMANN GUZMAN Date: 2023-01-26 09:07 Normal [facility] CBC AUTO DIFFon 11-16-2022 BASO # 0.0 103/ul Normal 0.0-0.1 [facility] Comment on above: Performed By: #### C BC #### [facility] [address] [place] [address] Dr. Chanel Manriquez Basophils/100 WBC (Bld) 0.6 % Normal 0.2-2.0 [facility] Comment on above: Performed By: #### C BC #### [facility] [address] [place] [address] Dr. Chanel Manriquez EO # 0.3 103/ul Normal 0.0-0.7 [facility] Comment on above: Performed By: #### C BC #### [facility] [address] [address] [address] Chanel Manriquez Eosinophils/100 WBC (Bld) 4.9 % Normal 0.9-7.0 [facility] Comment on above: Performed By: #### C BC #### [facility] [address] [place] [address] Dr. Chanel Manriquez Erythrocyte distribution width (RBC) [Ratio] 13.1 % Normal 11.0-15.0 [facility] Comment on above: Performed By: #### C BC #### [facility] [address] [place] [address] Dr. Chanel Manriquez Hematocrit (Bld) [Volume fraction] 39.7 % Normal 36.0-48.0 [facility] Comment on above: Performed By: #### C BC #### [facility] [address] [place] [address] Dr. Chanel Manriquez Hemoglobin (Bld) [Mass/Vol] 13.5 g/dL Normal 12.0-16.0 [facility] Comment on above: Performed By: #### C BC #### [facility] [address] [place] [address] Dr. Chanel Manriquez IG # 0.02 10e3/ul Normal 0.00-0.03 [facility] Comment on above: Performed By: #### C BC #### [facility] [address] [place] [address] Dr. Chanel Manriquez IG % 0.3 % Normal 0.0-0.5 [facility] Comment on above: Performed By: #### C BC #### [facility] [address] [place] [address] Dr. Chanel Manriquez LYMPH # 1.2 103/ul Normal 1.2-3.8 [facility] Comment on above: Performed By: #### C BC #### [facility] [address] [place] [address] Dr. Chanel Manriquez Lymphocytes/100 WBC (Bld) 18.5 % Critically low 20.5-60.0 [facility] Comment on above: Performed By: #### C BC #### [facility] [address] [place] [address] Dr. Chanel Manriquez MANUAL DIFF REQ NO Normal [facility] Comment on above: Performed By: #### C BC #### [facility] [address] [place] [address] Dr. Chanel Manriquez MCH (RBC) [Entitic mass] 28.9 pg Normal 26.7-34.0 [facility] Comment on above: Performed By: #### C BC #### [facility] [address] [address] [address] Chanel Manriquez MCHC (RBC) [Mass/Vol] 34.0 g/dL Normal 29.9-35.2 [facility] Comment on above: Performed By: #### C BC #### [facility] [address] [place] [address] Dr. Chanel Manriquez MCV (RBC) [Entitic vol] 85.0 fL Normal 81.0-99.0 [facility] Comment on above: Performed By: #### C BC #### [facility] [address] [place] [address] Dr. Chanel Manriquez MONO # 0.7 103/ul Normal 0.3-0.8 [facility] Comment on above: Performed By: #### C BC #### [facility] [address] [place] [address] Dr. Chanel Manriquez Monocytes/100 WBC (Bld) 10.7 % Normal 1.7-12.0 [facility] Comment on above: Performed By: #### C BC #### [facility] [address] [place] [address] Dr. Chanel Manriquez NEUT # 4.1 103/ul Normal 1.4-6.5 [facility] Comment on above: Performed By: #### C BC #### [facility] [address] [place] [address] Dr. Chanel Manriquez Neutrophils/100 WBC (Bld) 65.0 % Normal 43.0-75.0 [facility] Comment on above: Performed By: #### C BC #### [facility] [address] [place] [address] Dr. Chanel Manriquez Platelet mean volume (Bld) [Entitic vol] 9.3 fL Critically low 9.5-13.5 [facility] Comment on above: Performed By: #### C BC #### [facility] [address] [place] [address] Dr. Chanel Manriquez PLT 271 103/ul Normal 150-450 [facility] Comment on above: Performed By: #### C BC #### [facility] [address] [address] [address] Chanel Manriquez RBC 4.67 106/ul Normal 4.20-5.40 [facility] Comment on above: Performed By: #### C BC #### [facility] [address] [address] [address] Chanel Manriquez WBC 6.3 103/ul Normal 4.0-11.0 [facility] Comment on above: Performed By: #### C BC #### [facility] [address] [place] [address] Dr. Chanel Manriquez GLYCOHEMOGLOBIN A1Con 2022 ADA RECOMMENDATION SEE BELOW Normal [facility] Comment on above: Result Comment: ADA RECOMMENDED LIMIT 4.0 - 6.0 ADA THERAPEUTIC TARGET < 7.0 ACTION SUGGESTED > 7.0 Performed By: #### A 1C #### [facility] [address] [place] [address] Dr. Chanel Manriquez Glucose [Mass/Vol] 108 mg/dL Normal [facility] Comment on above: Performed By: #### A 1C #### [facility] [address] [place] [address] Dr. Chanel Manriquez HbA1c (Bld) [Mass fraction] 5.4 % Normal 4.5-6.2 [facility] Comment on above: Performed By: #### A 1C #### [facility] [address] [place] [address] Dr. Chanel Manriquez LIPID PROFILEon 11-16-2022 CHOL-HDL RATIO NORM SEE BELOW Normal [facility] Comment on above: Result Comment: 3.3 - 4.4 LOW RISK 4.4 - 7.1 AVERAGE RISK 7.1 - 11.0 MODERATE RISK >11.0 HIGH RISK Performed By: #### T SH, CMP, LIPID #### [facility] [address] [place] [address] Dr. Chanel Manriquez Cholesterol [Mass/Vol] 135 mg/dL Normal <=200 [facility] Comment on above: Performed By: #### T SH, CMP, LIPID #### [facility] [address] [place] [address] Dr. Chanel Manriquez Cholesterol in HDL [Mass/Vol] 40 mg/dL Normal 40-60 [facility] Comment on above: Performed By: #### T SH, CMP, LIPID #### [facility] [address] [address] [address] Chanel Manriquez Cholesterol in LDL [Mass/Vol] 80.4 mg/dL Normal [facility] Comment on above: Performed By: #### T SH, CMP, LIPID #### [facility] [address] [address] [address] Chanel Manriquez Cholesterol.total/Cho lesterol in HDL [Mass ratio] 3.4 {ratio} Normal [facility] Comment on above: Performed By: #### T SH, CMP, LIPID #### [facility] [address] [place] [address] Dr. Chanel Manriquez HDL NORMAL > or = 60 mg/dl - LO W CARDIOVASCULAR RISK <40 mg/dl - HIGH CARDIOVASCULAR RISK Normal [facility] Comment on above: Performed By: #### T SH, CMP, LIPID #### [facility] [address] [place] [address] Dr. Chanel Manriquez LDL CALC NORMAL SEE BELOW Normal [facility] Comment on above: Result Comment: <100 mg/dl OPTIMAL 100 - 129 mg/dl NEAR OR ABOVE OPTIMAL 130 - 159 mg/dl BORDERLINE HIGH 160 - 189 mg/dl HIGH >190 mg/dl VERY HIGH Performed By: #### T SH, CMP, LIPID #### [facility] [address] [place] [address] Dr. Chanel Manriquez Triglyceride [Mass/Vol] 73 mg/dL Normal <=150 [facility] Comment on above: Performed By: #### T SH, CMP, LIPID #### [facility] [address] [place] [address] Dr. Chanel Manriquez VLDL CALC 14.6 mg/dL Normal [facility] Comment on above: Performed By: #### T SH, CMP, LIPID #### [facility] [address] [place] [address] Dr. Chanel Manriquez PROF 14(COMP METB)on 01-14-2 023 Albumin [Mass/Vol] 3.4 g/dL Normal 3.4-5.0 [facility] Comment on above: Performed By: #### T SH, CMP, LIPID #### [facility] [address] [address] [address] Chanel Manriquez Albumin/Globulin [Mass ratio] 0.9 {ratio} Normal [facility] Comment on above: Performed By: #### T SH, CMP, LIPID #### [facility] [address] [address] [address] Chanel Manriquez ALP [Catalytic activity/Vol] 62 U/L Normal 46-116 [facility] Comment on above: Performed By: #### T CAROL, CMP, LIPID #### [facility] [address] [address] [address] Chanel Manriquez ALT [Catalytic activity/Vol] 17 U/L Normal 14-59 [facility] Comment on above: Performed By: #### T CAROL, CMP, LIPID #### [facility] [address] [address] [address] Chanel Manriquez Anion gap [Moles/Vol] 10.5 mmol/L Normal [facility] Comment on above: Performed By: #### T CAROL, CMP, LIPID #### [facility] [address] [address] [address] Chanel Manriquez AST [Catalytic activity/Vol] 15 U/L Normal 15-37 [facility] Comment on above: Performed By: #### T CAROL, CMP, LIPID #### [facility] [address] [address] [address] Chanel Manriquez Bilirubin [Mass/Vol] 0.5 mg/dL Normal 0.2-1.0 [facility] Comment on above: Performed By: #### T SH, CMP, LIPID #### [facility] [address] [address] [address] Chanel Manriquez Calcium [Mass/Vol] 8.7 mg/dL Normal 8.5-10.1 [facility] Comment on above: Performed By: #### T SH, CMP, LIPID #### [facility] [address] [address] [address] Chanel Manriquez Chloride [Moles/Vol] 104 mmol/L Normal 98-107 [facility] Comment on above: Performed By: #### T SH, CMP, LIPID #### [facility] [address] [address] [address] Chanel Manriquez CO2 [Moles/Vol] 28.4 mmol/L Normal 21.0-32.0 [facility] Comment on above: Performed By: #### T SH, CMP, LIPID #### [facility] [address] [place] [address] Dr. Chanel Manriquez Creatinine [Mass/Vol] 0.79 mg/dL Normal 0.55-1.02 [facility] Comment on above: Performed By: #### T CAROL, CMP, LIPID #### [facility] [address] [place] [address] Dr. Chanel Manriquez EGFR-AF BURMESE >60 Normal >=60 [facility] Comment on above: Performed By: #### T CAROL, CMP, LIPID #### [facility] [address] [place] [address] Dr. Chanel Manriquez EGFR-NON AF BURMESE >60 Normal >=60 [facility] Comment on above: Performed By: #### T CAROL CMP, LIPID #### [facility] [address] [place] [address] Dr. Chanel Manriquez Globulin (S) [Mass/Vol] 3.9 g/dL Normal [facility] Comment on above: Performed By: #### T CAROL, CMP, LIPID #### [facility] [address] [place] [address] Dr. Chanel Manriquez Glucose [Mass/Vol] 101 mg/dL Normal 74-106 [facility] Comment on above: Performed By: #### T SH, CMP, LIPID #### [facility] [address] [place] [address] Dr. Chanel Manriquez Potassium [Moles/Vol] 3.9 mmol/L Normal 3.5-5.1 [facility] Comment on above: Performed By: #### T SH, CMP, LIPID #### [facility] [address] [address] [address] Chanel Manriquez Protein [Mass/Vol] 7.3 g/dL Normal 6.4-8.2 [facility] Comment on above: Performed By: #### T SH, CMP, LIPID #### [facility] [address] [address] [address] Chanel Manriquez Sodium [Moles/Vol] 139 mmol/L Normal 136-145 [facility] Comment on above: Performed By: #### T SH, CMP, LIPID #### [facility] [address] [address] [address] Chanel Manriquez Urea nitrogen [Mass/Vol] 13.0 mg/dL Normal 7.0-18.0 [facility] Comment on above: Performed By: #### T SH, CMP, LIPID #### [facility] [address] [address] [address] Chanel Manriquez Urea nitrogen/Creatinine [Mass ratio] 16.5 mg/mg Normal [facility] Comment on above: Performed By: #### T SH, CMP, LIPID #### [facility] [address] [address] [address] Chanel Manriquez TSHon 11-16-2022 TSH 3.672 uIU/mL Normal 0.358-3.740 [facility] Comment on above: Performed By: #### T SH, CMP, LIPID #### [facility] [address] [address] [address] Chanel Manriquez MG MAMM SCREEN 3D MELISSA CADon 06-19-2022 MG MAMM SCREEN 3D MELISSA CAD Patient: RHONDA WYATT Exam Date: 06/19/2022 : 1980 Gender:F Ordering : DR CESAR LUTZ . Admission #: [id number] Family : DR JULIA MITCHELL M.D. Order #: [id number] CLICK HERE TO VIEW EXAM RADIOLOGY REPORT [...] brain, lung cancer at age 68. LOCATION: [facility] BREAST COMPOSITION: Scattered areas fibroglandular density. [...] Huntley M.D. on 06/20/2022 at 14:07 Normal [facility] PAP ACOG PANEL 2: 30 to 65on 04-16-2022 . . Normal [facility] Comment on above: Result Comment: Perf ormed at: WB Performed By: #### [id number] #### [facility] [address] [address] [address] Chanel Manriquez Age Gdln ACOG Testing 30-65 Normal [facility] Comment on above: Performed By: #### [id number] #### [facility] [address] [address] [address] Chanel Manrqiuez DIAGNOSIS: Comment Normal [facility] Comment on above: Result Comment: NEGA TIVE FOR INTRAEPITHELIAL LESION OR MALIGNANCY. Performed at: WB Performed By: #### [id number] #### [facility] [address] [address] [address] Chanel Manriquez HPV Aptima Negative Normal Negative [facility] Comment on above: Result Comment: This nucleic acid amplification test detects fourteen high-risk HPV types (16,18,31,33,35,39,45,51,52,56,58,59,66,68) without differentiation. Performed at: =G Performed By: #### [id number] #### [facility] [address] [place] [address] Dr. Chanel Manriquez Methodology: Comment Normal [facility] Comment on above: Result Comment: This liquid based ThinPrep(R) pap test was screened with the use of an image guided system. Performed at: WB Performed By: #### [id number] #### [facility] [address] [place] [address] Dr. Chanel Manriquez Note: Comment Normal [facility] Comment on above: Result Comment: The Pap smear is a screening test designed to aid in the detection of premalignant and malignant conditions of the uterine cervix. It is not a diagnostic procedure and should not be used as the sole means of detecting cervical cancer. Both false-positive and false-negative reports do occur. . Performed at: WB Performed By: #### [id number] #### [facility] [address] [place] [address] Dr. Chanel Manriquez Performed by: Comment Normal [facility] Comment on above: Result Comment: Jasbir Young, Intervention Analyst (ASCP) Performed at: WB Performed By: #### [id number] #### [facility] [address] [place] [address] Dr. Chanel Manriquez Specimen adequacy: Comment Normal [facility] Comment on above: Result Comment: Sati sfactory for evaluation. Endocervical and/or squamous metaplastic cells (endocervical component) are present. Performed at: WB Performed By: #### [id number] #### [facility] [address] [place] [address] Dr. Chanel Manriquez US THYROIDon 02-09-2022 US [...] one year is recommended. TR 4: The [employer] TI-RADS committee's white paper recommendations for thyroid lesions classified as TR4 (moderately suspicious) are listed below: > 1.0 cm. Follow-up ultrasound in 1, 2, 3, and 5 years. > 1.5 cm. FNA. J. Am Marcella Radiol 2017;14:587-595. Electronically authenticated by: CLIFTON HUNTLEY Date: 2022-02-09 10:40 Normal [facility] SURGICAL PATHOLOGYon 019 SURGICAL PATHOLOGY Specimen #: [id number] Submitting Physician: GIDEON PRYOR MD FINAL DIAGNOSIS Outside slides [id number], [id number], B1; 04/06/2019; [facility], [place]: 1. Right thyroid and partial left [...] Dr. Vicki Badillo, a colleague on the [facility] head and neck pathology service was consulted, and she agrees with the diagnoses. If you would like to discuss this case, please contact my office at [phone]. [facility]/kmr 04/12/19 Efraín Wayne M.D. (Electronic Signature) ____ SPECIMEN SUBMITTED A: 17 SLIDES ([id number]) CLINICAL DATA None provided. SLIDE/BLOCK DESCRIPTION A. 17 SLIDES ([id number]): Date of Report: 04/13/2019 Date of Procedure: 04/09/2019 Date of Receipt: 04/09/2019 Submitted by: GIDEON PRYOR MD Location: Diagnostic interpretation performed at [facility], [address] [place] [address]. CLIA Number: [id number] Normal [facility] Comment on above: Performed By: #### S #### See report for performing lab information. Vital Signs Date Time Vital Sign Value Performing Clinician Facility 12-08-2023 15:00-0500 Body height 154.94 cm Julia Mitchell Other [facility] Other 12-08-2023 15:00-0500 Body mass index (BMI) [Ratio] 35.33 kg/m2 Julia Mitchell Other [facility] Other 12-08-2023 15:00-0500 Body weight 84.82 kg Julia Mitchell Other [facility] Other 12-08-2023 15:00-0500 Diastolic blood pressure 81 mm[Hg] Julia Mitchell Other [facility] Other 12-08-2023 15:00-0500 Systolic blood pressure 121 mm[Hg] Julia Mitchell Other [facility] Other 02-04-2023 11:00-0400 Body height 154.94 cm Julia Mitchell Other [facility] Other 02-04-2023 11:00-0400 Body mass index (BMI) [Ratio] 35.9 kg/m2 Julia Mitchell Other [facility] Other 02-04-2023 11:00-0400 Body weight 86.18 kg Julia Mitchell Other [facility] Other 02-04-2023 11:00-0400 Diastolic blood pressure 82 mm[Hg] Julia Mitchell Other [facility] Other 02-04-2023 11:00-0400 SaO2% (BldA) [Mass fraction] 97 % Julia Mitchell Other [facility] Other 02-04-2023 11:00-0400 Systolic blood pressure 122 mm[Hg] Julia Mitchell Other [facility] Other 11-21-2022 16:00-0500 Body height 154.94 cm Julia Mitchell Other [facility] Other 11-21-2022 16:00-0500 Body mass index (BMI) [Ratio] 36.46 kg/m2 Julia Mitchell Other [facility] Other 11-21-2022 16:00-0500 Body weight 87.54 kg Julia Mitchell Other [facility] Other 11-21-2022 16:00-0500 Diastolic blood pressure 88 mm[Hg] Julia Mitchell Other [facility] Other 11-21-2022 16:00-0500 SaO2% (BldA) [Mass fraction] 97 % Julia Mitchell Other [facility] Other 11-21-2022 16:00-0500 Systolic blood pressure 132 mm[Hg] Julia Mitchell Other [facility] Other Encounters Encounter Date Encounter Type Care Provider Facility Start: 12-08-2023 End: 12-08-2023 ambulatory Julia Mitchell Other [facility] Other Start: 12-08-2023 Encounter for genera l adult medical examination without abnormal findings Julia Mitchell [facility] Start: 12-08-2023 Periodic preventive med est patient 40-64yrs Julia Mitchell [facility] Start: 07-02-2023 End: 07-02-2023 ambulatory Julia Mitchell Other [facility] Other Start: 07-02-2023 Telephone encounter Julia Mitchell [facility] Start: 02-04-2023 End: 02-04-2023 ambulatory Julia Mitchell Other [facility] Other Start: 02-04-2023 Office outpatient vi sit 15 minutes Julia Mitchell [facility] Start: 01-31-2023 End: 01-31-2023 ambulatory Julia Mitchell Other [facility] Other Start: 01-31-2023 Telephone encounter Julia Mitchell [facility] Start: 01-25-2023 End: 01-26-[address] JULIA MITCHELL Facility:[facility] Start: 01-15-[address] JULIA MITCHELL Facil ity:[facility] Start: 11-22-2022 Encounter for genera l adult medical examination without abnormal findings DR JULIA MITCHELL [facility] Start: 11-21-2022 End: 11-21-2022 ambulatory Julia Mitchell Other [facility] Other Start: 11-21-2022 Encounter for genera l adult medical examination without abnormal findings Julia Mitchell [facility] Start: 11-21-2022 Periodic preventive med est patient 40-64yrs Julia Mitchell [facility] Start: 11-16-2022 End: 11-17-[address] JULIA MITCHELL Facility:[facility] Start: 11-16-2022 End: 11-17-2022 Encounter for general adult medical examination without abnormal findings DR JULIA MITCHELL Facility:[facility] Start: 11-13-2022 End: 11-13-2022 ambulatory Julia Mitchell Other [facility] Other Start: 11-13-2022 Encounter for genera l adult medical examination without abnormal findings Julia Mitchell [facility] Start: 11-13-2022 Telephone encounter Julia Mitchell [facility] Start: 08-13-2022 End: 11-22-[address] JULIA MITCHELL Facility:[facility] Start: 06-19-2022 End: 06-20-[address] JULIA MITCHELL Facility:[facility] Start: 04-10-2022 End: 04-10-[address] CESAR LUTZ . Facility:[facility] Start: 04-10-2022 Gynecological examin ation normal Julia Mitchell Other [facility] Other Start: 02-08-2022 End: 02-09-[address] JONATHAN FERNÁNDEZ Facility:[facility] Start: 03-13-2021 Adult health examination Lou isra Paula Other [facility] Other Procedures Date Procedure Procedure Detail Performing [...] Mitchell Other Payers Date Payer Category Payer [facility] [id number] 2019 Unknown [id number] 1980 Unknown [id number] 2.16.84 [id number] 1980 Unknown [id number] 2.16.84 [id number] 1980 Unknown [id number] 2.16.84 [id number] 1980 Unknown [id number] 2.16.84 [id number] 1980 Unknown [id number] 2.16.84 [id number] 1980 Unknown [id number] 2.16.84 [id number] 1980 Unknown [id number] 2.16.84 [id number] 1961 Self-pay Social History Date Type Detail Facility Sex Assigned At [facility] Other Evaluation note 12-08-2023 Note Date & [...] further guidance if her test is positive. [facility] Other Evaluation note 07-02-2023 Note Date & Type Note Facility 07-02-2023 Evaluation note Encounter Date Diagnosis Assessment Notes Jun, Screening mammogram for breast cancer (ICD-10 - Z12.31) [facility] Other Evaluation note 02-04-2023 Note Date & Type Note Facility 02-04-2023 Evaluation note Encounter Date Diagnosis Assessment Notes Feb, Hypertension (ICD-10 - I10) Present readings are normal. Continue present med. Discussed decreasing salt and starting exercise to improve BP. Would not add or increase BP med at this time. Pt in agreement. [facility] Other Evaluation note 11-21-2022 Note Date & [...] (ICD-10 - E06.3) Continued followup w ENT [facility] Other Evaluation note 11-13-2022 Note Date & Type Note Facility 11-13-2022 Evaluation note Encounter Date Diagnosis Assessment Notes Nov, Wellness examination (ICD-10 - Z00.00) [facility] Other Evaluation note Note Date & Type Note Facility Evaluation note No Information [facility] Other History general Narrative - Reported Note Date & Type Note Facility History general Narrative - Reported Type Medical History [facility] Medical History Hshimoto's disease Medical History Hypertension Medical History Hypothyroidism Medical History Anxiety Surgical History C section x2 Surgical History Right Carpal Tunnel Surgical History Thyroidectomy (right) Surgical History Thyroidectomy (piece of left) [facility] Other History general Narrative - Reported Note Date & Type Note Facility History general Narrative - Reported Type Medical History [facility] Medical History Hshimoto's disease Medical History Hypertension Medical History Hypothyroidism Medical History Anxiety Surgical History C section x2 Surgical History Right Carpal Tunnel Surgical History Thyroidectomy (right) Surgical History Thyroidectomy (piece of left) Hospitalization History SEE SURGICAL HX [facility] Other Summary Purpose Family History No Family History Records FoundNo Family History Records Found Advance Directives No Advanced Directives Records FoundNo Advanced Directives Records Found Additional Source Comments INFORMATION SOURCE (unrecogn ized section and content) DATE CREATED AUTHOR 04/14/2019 [facility] DATE CREATED AUTHOR AUTHOR'S ORGANIZ [...] BE BASED ON THE PRIMARY CLINICAL RECORDS. [employer] provides no warranty or guarantee of the accuracy or completeness of information in this document.
[2024-02-07 07:19] LABS: Basophils Percent Auto 0.6 % (0.2-2.0); Eosinophils Absolute Auto 0.1 10^3/uL (0.0-0.7); Eosinophils Percent Auto 2.7 % (0.9-7.0); Hematocrit 41.4 % (36.0-48.0); Hemoglobin 13.6 g/dL (12.0-16.0); Immature Granulocytes Abs Auto 0.01 10^3/uL (0.00-0.03); Immature Granulocytes Pct Auto 0.2 % (0.0-0.5); Lymphocytes Absolute Auto 1.4 10^3/uL (1.2-3.8); Lymphocytes Percent Auto 28.2 % (20.5-60.0); Mean Corpuscular HGB Conc 32.9 g/dL (29.9-35.2); Mean Corpuscular Hemoglobin 29.4 pg (26.7-34.0); Mean Corpuscular Volume 89.4 fL (81.0-99.0); Mean Platelet Volume 9.7 fL (9.5-13.5); Monocytes Absolute Auto 0.4 10^3/uL (0.3-0.8); Monocytes Percent Auto 8.5 % (1.7-12.0); Neutrophils Absolute Auto 2.9 10^3/uL (1.4-6.5); Neutrophils Percent Auto 59.8 % (43.0-75.0); Platelet Count 260 10^3/uL (150-450); Red Blood Count 4.63 10^6/uL (4.20-5.40); Red Cell Distribution Width 12.7 % (11.0-15.0); White Blood Count 4.8 10^3/uL (4.0-11.0)
[2024-02-07 07:35] LABS: Estimated Average Glucose 111 mg/dL; Glycohemoglobin A1C 5.5 % (4.5-6.2)
[2024-02-07 07:45] LABS: Alanine Aminotransferase 29 U/L (14-59); Albumin Globulin Ratio 0.8; Albumin Level 3.4 g/dL (3.4-5.0); Alkaline Phosphatase 69 U/L (46-116); Anion Gap 8.9; Aspartate Amino Transferase 16 U/L (15-37); BUN Creatinine Ratio 14.8; Bilirubin Total 0.5 mg/dL (0.2-1.0); Calcium 8.9 mg/dL (8.5-10.1); Carbon Dioxide 30.2 mmol/L (21.0-32.0); Chloride 104 mmol/L (98-107); Chol HDL Ratio 3.6; Cholesterol 154 mg/dL (<=200); Estimated GFR (African America >60 (>=60); Estimated GFR (Non-African Ame >60 (>=60); Globulin 4.1 g/dL; Glucose 94 mg/dL (74-106); HDL Cholesterol 43 mg/dL (40-60); LDL Cholesterol Calculated 91.6 mg/dL; Potassium 4.1 mmol/L (3.5-5.1); Sodium 139 mmol/L (136-145); Thyroid Stimulating Hormone 1.455 uIU/mL (0.358-3.740); Total Protein 7.5 g/dL (6.4-8.2); Triglycerides 97 mg/dL (<=150); VLDL CHOLESTEROL 19.4 mg/dL
== END 2024-02-07 06:48 | disposition home or self-care (01) ==
LOC: LAB 06:47
PROVIDERS: PCP Family Medicine; Visit Provider Family Medicine
DX: Z00.00 Encounter for general adult medical examination without abnormal findings (principal)
CPT/HCPCS: 36415; 80053; 80061; 83036; 84443; 85025

== ENCOUNTER 2024-03-01 14:27 | Day surgery (SDC) | payer BC, SELFPAY ==
--- NOTE | 2024-03-01 14:29 | US_ITS ---
[address] [address] Patient Name: RHONDA WYATT MRN: [id number] date: 1980 Sex: F Assigned Patient Location: US Current Patient Location: Accession/Order Number: [id number] Exam Date: 03/01/2024 14:30 Report Date: 03/01/2024 15:59 At the request of: JONATHAN FERNÁNDEZ Procedure: US biopsy thyroid EXAMINATION: US biopsy thyroid HISTORY: thyroid nodule COMPARISON: Ultrasound thyroid 01/28/2024 TECHNIQUE: After obtaining informed consent, ultrasound-guided fine needle aspiration was performed in the usual sterile manner. FINDINGS: IMAGING: Ultrasound. BIOPSY NEEDLE: 25-gauge; 4 separate passes LOCATION: Posterior inferior left lobe hypoechoic 12 x 12 x 8 mm nodule. SPECIMEN TYPE: Cellular tissue. LOCAL ANESTHETIC: Buffered Xylocaine. COMPLICATIONS: None. LABORATORY: Prepared slide smears and washings for cell block evaluation. OTHER: Negative. PATHOLOGY: Pending. An addendum will be added when results are available. US/US biopsy thyroid IMPRESSION: 1. Uneventful ultrasound guided fine needle aspiration (FNA). 2. Pathology results are pending. Electronically authenticated by: PRINCE HERNANDEZ Date: 03/01/2024 15:59
[2024-03-01 14:30] VITALS: BP 121/78; PULSE 82; O2SAT 96
[2024-03-01] MEDS: LIDOCAINE HCL 10 ML, SODIUM BICARBONATE 1 MEQ INJ (15:15)
--- NOTE | 2024-03-01 15:49 | SUR.PREOP ---
02/02/24 Pt instructed on procedure, date, time, and prep.
== END 2024-03-01 15:40 | disposition home or self-care (01) ==
LOC: US 14:27
PROVIDERS: Radiology Diagnostic Radiology; PCP Family Medicine; Visit Provider Otolaryngology
DX: E04.1 Nontoxic single thyroid nodule (principal)
CPT/HCPCS: 10005; 88112; 99999

== ENCOUNTER 2024-06-21 20:40 | Outpatient (OUT) | payer BC, SELFPAY ==
--- OUTSIDE RECORDS SUMMARY | 2024-06-21 20:42 | XMS_ITS | CCD ---
Author Organization [facility] Care Team Providers Care [employer] Operations [employer] Member Name Role Phone Julia Mitchell Unavailable PAULA, [...] Unavailable MITCHELL, DR JULIA Sandoval Attending Unavailable MD Clifton Huntley Attending Provider Clifton Huntley Attending Unavailable ZiebClifton contreras Admitting Unavailable TIMMISarthak, JONATHAN Lee Attending Unavailable TIMMIS, JONATHAN Lee Attending Unavailable Allergies Allergy Classification Reported Allergen(s) Allergy Type Date of Onset Reaction(s) Facility (1 source) Bacitracin Drug Allergy 9 [facility] Repository (2 sources) patient allergy list reviewed by nurse or physicia Propensity to adverse reactions 9 Comment:Done SparCode Other (2 sources) Allergies Reconciled Propensity to adverse reactions Unknown SparCode Other Medications Current Medications Medication Drug Class(es) Dates Sig (Normalized) Sig (Original) ibuprofen 600 mg oral tablet (1 source) Nonsteroidal Anti-inflammatory Drug Start: 08-14-2017 take 600 mg by mouth every six hours Ibuprofen Active 600 MG PO Every 6 hours 30 August 14, 2017 12:00am levothyroxine sodium 0.05 mg oral tablet (5 sources) l-Thyroxine Start: 08-12-2017 take 50 ug by mouth once daily Levothyroxine Active 50 MCG PO Daily August 12, 2017 12:00am take 1 tablet by stefan th once daily in the morning Levothyroxine Sodium 125 MCG 1 tablet in the morning on an empty stomach Orally Once a day Active take 1 tablet by stefan th once daily in the morning Levothyroxine Sodium 125 MCG 1 tablet in the morning on an empty stomach Orally Once a day Active Metoprolol (8 sources) beta-Adrenergic Dustin Start: 01-22-2024 take 1 tablet by mouth once daily Metoprolol Succinate Active 0 .ROUTE .COMPLEX 90 January 22, 2024 2:33pm TAKE 1 TABLET BY MOUTH EVERY DAY Start: 01-22-2024 End: 01-22-2024 take 50 mg by mouth once daily Metoprolol Succinate Di scontinued 50 MG PO Daily January 22, 2024 12:00am January 22, 2024 2:33pm take 1 tablet by stefan th once daily Metoprolol Succinate ER 50 MG TAKE 1 TABLET BY MOUTH EVERY DAY for 90 Active take 1 capsule by mo uth once daily Metoprolol Succinate 50 MG 1 capsule Orally Once a day Active traMADol hydrochloride 50 mg oral tablet (1 source) Opioid Agonist Start: 08-14-2017 take 50 mg by mouth every four hours Tramadol Active 50 MG PO Q4H 30 August 14, 2017 12:00am Completed/Discontinued Medications Medication Drug Class(es) Dates Sig (Normalized) Sig (Original) 21 day ethinyl estradiol 0.211983 mg/hr / etonogestrel 0.005 mg/hr vaginal system [...] Test Name Value Interpretation Reference Range Facility [facility] 03-01-2024 L Specimen: [id number] Re ceived: 03/03/24 Status: SOUT Req Num: [id number] Spec Type: Cytology Subm Dr: Clifton Huntley MD Tissues: A FNA SLIDES NOPATH (LT THYROID NOD) Procedures: Cyto Int and Re, PAPSTN/5 Age/ Patient Sex Location Account Attending Physician Mildred Reed 43/F [facility] [id number] Clifton Huntley MD SPEC NUM: [id number] RECD: 03/03/24 STATUS: SOUT REQ NUM: [id number] AVA: 03/01/24 DR: Clifton Huntley MD ENTERED: 03/03/[address]: Felisa Lizama HILARY H MD SPEC TYPE: Cytology DEPT: [facility] ENTERED BY: [id number] RECV BY: [id number] ORDERED: Cyto Int and Re, PAPSTN/5 ORDERED: Cyto Int and Re, PAPSTN/5 Pathological Diagnosis Left inferior thyroid nodule, ultrasound?guided fine-needle aspiration: ? Non?diagnostic (Manito category 1). ? 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 Gross Description Received in Cytolyt labeled with the patient's name, date of and left thyroid nodule, inferior per requisition is < 1 ml colorless clear fixed fluid. 1 Thin Prep slides are prepared. 4 spray fixed smears to be stained pap are additionally received. (TN/ms) CPT Codes 47317 -------- -------- Specimen: [id number] Received: 03/03/24 Status: PRACHI Lacy Num: [id number] Spec Type: Cytology Subm Dr: Clifton Huntley MD Tissues: A FNA SLIDES NOPATH (LT THYROID NOD) Procedures: Cyto Int and Re, PAPSTN/5 -------- Patient: Mildred Reed [id number] (Continued) -------- Signed (signature on file) Hermann Dias MD 03/04/24 0939 Normal [facility] Basophils Auto (Bld) [#/Vol] on 02-07-2024 Basophils (Bld) [#/Vol] 0.0 10 3/uL 0.0-0.1 [facility] Basophils/100 WBC Auto (Bld) on 02-07-2024 Basophils/100 WBC (Bld) 0.6 % 0.2-2.0 [facility] Cholesterol in LDL Calc [Mas s/Vol]on 02-07-2024 Cholesterol in LDL [Mass/Vol] 91.6 mg/dL [facility] Comment on above: <100 mg/dl [id number] 0-129 mg/dl NEAR OR ABOVE [id number] mg/dl BORDERLINE [id number] mg/dl HIGH>190 mg/dl VERY HIGH Cholesterol in VLDL Calc [Ma ss/Vol]on 02-07-2024 Cholesterol in VLDL [Mass/Vol] 19.4 mg/dL [facility] Eosinophils/100 WBC Auto (Bl d)on 02-07-2024 Eosinophils/100 WBC (Bld) 2.7 % 0.9-7.0 [facility] Erythrocyte distribution wid th Auto (RBC) [Ratio]on 02-07-2024 Erythrocyte distribution width (RBC) [Ratio] 12.7 % 11.0-15.0 [facility] Estimated glomerular filtrat ion rate (GFR) non- Americanon 02-07-2024 GFR/1.73 sq M.predicted among non-blacks MDRD (S/P/Bld) [Vol rate/Area] mL/min/{1.73_m2} >=60 [facility] Globulin Calc (S) [Mass/Vol] on 02-07-2024 Globulin (S) [Mass/Vol] 4.1 g/dL [facility] Glucose mean value [Mass/vol ume] in Blood Estimated from glycated hemoglobinon 02-07-2024 Average glucose Estimated from glycated hemoglobin (Bld) [Mass/Vol] 111 mg/dL [facility] Hematocrit Auto (Bld) [Volum e fraction]on 02-07-2024 Hematocrit (Bld) [Volume fraction] 41.4 % 36.0-48.0 [facility] Hemoglobin [Mass/volume] in Bloodon 02-07-2024 Hemoglobin (Bld) [Mass/Vol] 13.6 g/dL 12.0-16.0 [facility] Laboratory - Chemistry and C hemistry - challengeon 02-07-2024 Albumin [Mass/Vol] 3.4 g/dL 3.4-5.0 [facility] ALP [Catalytic activity/Vol] 69 U/L 46-116 [facility] ALT [Catalytic activity/Vol] 29 U/L 14-59 [facility] AST [Catalytic activity/Vol] 16 U/L 15-37 [facility] Bilirubin [Mass/Vol] 0.5 mg/dL 0.2-1.0 [facility] Calcium [Mass/Vol] 8.9 mg/dL 8.5-10.1 [facility] Chloride [Moles/Vol] 104 mmol/L 98-107 [facility] Cholesterol [Mass/Vol] 154 mg/dL <=200 [facility] Cholesterol in HDL [Mass/Vol] 43 mg/dL 40-60 [facility] Comment on above: > or =60 mg/dl - LOW CARDIOVASCULAR RISK<40 mg/dl - HIGH CARDIOVASCULAR RISK CO2 [Moles/Vol] 30.2 mmol/L 21.0-32.0 [facility] Creatinine [Mass/Vol] 0.88 mg/dL 0.55-1.02 [facility] GFR/1.73 sq M.predicted MDRD (S/P/Bld) [Vol rate/Area] mL/min/{1.73_m2} >=60 [facility] Glucose [Mass/Vol] 94 mg/dL 74-106 [facility] Potassium [Moles/Vol] 4.1 mmol/L 3.5-5.1 [facility] Protein [Mass/Vol] 7.5 g/dL 6.4-8.2 [facility] Sodium [Moles/Vol] 139 mmol/L 136-145 [facility] Triglyceride [Mass/Vol] 97 mg/dL <=150 [facility] TSH Qn 1.455 m[IU]/L 0.358-3.740 [facility] Urea nitrogen [Mass/Vol] 13.0 mg/dL 7.0-18.0 [facility] Urea nitrogen/Creatinin e [Mass ratio] 14.8 mg/mg [facility] Laboratory - Hematology and Cell countson 02-07-2024 HbA1c (Bld) [Mass fraction] 5.5 % 4.5-6.2 [facility] Comment on above: ADA RECOMMENDED LIMI T 4.0 - 6.0ADA THERAPEUTIC TARGET < 7.0ACTION SUGGESTED> 7.0 Immature granulocytes/100 WBC (Bld) 0.2 % 0.0-0.5 [facility] Leukocytes [#/volume] correc tiffany for nucleated erythrocytes in Blood by Automated counon 02-07-2024 WBC corrected for nucl RBC Auto (Bld) [#/Vol] 4.8 10 3/uL 4.0-11.0 [facility] Lymphocytes Auto (Bld) [#/Vo l]on 02-07-2024 Lymphocytes (Bld) [#/Vol] 1.4 10 3/uL 1.2-3.8 [facility] Lymphocytes/100 WBC Auto (Bl d)on 02-07-2024 Lymphocytes/100 WBC (Bld) 28.2 % 20.5-60.0 [facility] MCH Auto (RBC) [Entitic mass ]on 02-07-2024 MCH (RBC) [Entitic mass] 29.4 pg 26.7-34.0 [facility] MCHC Auto (RBC) [Mass/Vol]on 02-07-2024 MCHC (RBC) [Mass/Vol] 32.9 g/dL 29.9-35.2 [facility] MCV Auto (RBC) [Entitic vol] on 02-07-2024 MCV (RBC) [Entitic vol] 89.4 fL 81.0-99.0 [facility] Monocytes Auto (Bld) [#/Vol] on 02-07-2024 Monocytes (Bld) [#/Vol] 0.4 10 3/uL 0.3-0.8 [facility] Monocytes/100 WBC Auto (Bld) on 02-07-2024 Monocytes/100 WBC (Bld) 8.5 % 1.7-12.0 [facility] Neutrophils Auto (Bld) [#/Vo l]on 02-07-2024 Neutrophils (Bld) [#/Vol] 2.9 10 3/uL 1.4-6.5 [facility] Neutrophils/100 WBC Auto (Bl d)on 02-07-2024 Neutrophils/100 WBC (Bld) 59.8 % 43.0-75.0 [facility] No Panel Informationon 02-06 Eosinophils # (Auto) 0.1 10 3/uL 0.0-0.7 [facility] Immature Granulocyte # (Auto) 0.01 10 3/uL 0.00-0.03 [facility] Platelet mean volume Auto (B ld) [Entitic vol]on 02-07-2024 Platelet mean volume (Bld) [Entitic vol] 9.7 fL 9.5-13.5 [facility] Platelets Auto (Bld) [#/Vol] on 02-07-2024 Platelets (Bld) [#/Vol] 260 10 3/uL 150-450 [facility] RBC Auto (Bld) [#/Vol]on RBC (Bld) [#/Vol] 4.63 10 6/uL 4.20-5.40 [facility] Serum or plasma albumin/glob ulin mass ratioon 02-07-2024 Albumin/Globulin [Mass ratio] 0.8 {ratio} [facility] Serum or plasma anion gap de terminationon 02-07-2024 Anion gap [Moles/Vol] 8.9 mmol/L [facility] Serum or plasma total choles terol/high density lipoprotein (HDL) cholesterol mass kenia 02-07-2024 Cholesterol.total/ Cholesterol in HDL [Mass ratio] 3.6 {ratio} [facility] Comment on above: 3.3 - 4.4 LOW RISK4. 4 - 7.1 AVERAGE RISK7.1 - 11.0 MODERATE RISK>11.0 HIGH RISK No Panel Informationon 12-17 Factor II DNA Analysis Comment Comment . [facility] Comment on above: Technical Component performed at [facility] RTPProfessional Component performed by:Zachary Bernal, Ph.D., FACMGDirector, Molecular [id number] [facility] [id number] at: TG - [facility] [id number] [place], [place] [id number] Director: Derick Ma [facility], Phone: [phone] Prothrombin gene [id number] mut ation detectionon 12-17-2023 F2 gene targeted mutation analysis [employer] Nom (Bld/Tiss) Comment . [facility] Comment on above: Result: c.*97G>A - N ot DetectedThis result is not associated with an increased risk for venousthromboembolism. See Additional Clinical Information andComments.Additional Clinical Information:Venous thromboembolism is a multifactorial disease influenced bygenetic, environmental, and circumstantial risk factors. The c.*97G>Avariant in the F2 gene is a genetic risk factor for venousthromboembolism. Heterozygous carriers have a 2- to 4-fold increasedrisk for venous thromboembolism. Homozygotes for the c.*97G>A variantare rare. The annual risk of VTE in homozygotes has been reported karol 1.1%/year. Individuals who carry both a c.*97G>A variant in theF2 gene and a c.1601G>A (p. Yoh855Gco) variant in the F5 gene(commonly referred to as Factor V Leiden) have an approximately 20-fold increased risk for venous thromboembolism. Risks are likely karol even higher in more complex genotype combinations involving theF2 c.*97G>A variant and Factor V Leiden (PMID: 23075915). Additionalrisk factors include but are not limited to: deficiency of protein C,protein S, or antithrombin III, age, male sex, personal or familyhistory of deep vein thromboembolism, smoking, surgery, prolongedimmobilization, malignant neoplasm, tamoxifen treatment, raloxifenetreatment, oral contraceptive use, hormone replacement therapy, andpregnancy. Management of thrombotic risk and thrombotic events shouldfollow established guidelines and fit the clinical circumstance. Thisresult cannot predict the occurrence or recurrence of a thromboticevent.Comments:Genetic counseling is recommended to discuss the potential clinicalimplications of positive results, as well as recommendations fortesting family members.Genetic Coordinators are available for health care providers to discussresults at [phone]).Test Details:Variant analyzed: c.*97G>A, previously referred to as [id number]/Limitations:DNA analysis of the F2 gene (NM_000506.5) was performed by PCRamplification followed by restriction enzyme analysis. The diagnosticsensitivity is >99%. Results must be combined with clinicalinformation for the most accurate interpretation. Molecular-basedtesting is highly accurate, but as in any laboratory test, diagnosticerrors may occur. False positive or false negative results may occurfor reasons that include genetic variants, blood transfusions, bonemarrow transplantation, somatic or tissue-specific mosaicism,mislabeled samples, or erroneous representation of familyrelationships.This test was developed and its performance characteristics determinedby [employer]. It has not been cleared or approved by the Food and DrugAdministration.References:Karma De León, Kvng JOINER, Lul R, Dale WW, Igor VELÁSQUEZ; [employer] ProfessionalPractice and Guidelines Committee. Addendum: [place] [employer] consensus statement on factor V Leiden mutationtesting. Sayda Med. 2020Jan 05. doi: 10.1038/g48074-143-51343-x.PMID: 57539870.Amber KO. Prothrombin Thrombophilia. 2005May 27[Updated 2020Dec 07]. In: Antoni MP, Kristin HH, Chico RA, et al.,editors. Alpesh(R) [Internet]. [place] ([place]): [facility]; 9923-7897. Available from:https://www.ncbi.nlm.nih.gov/books/ENY3836/Melo De León, Kvng JOINER, Esteban X, Janusz B, Grace EB, Genesis P, Tremaine CS;[employer] Laboratory Locomotive Crane Engineer Committee. Venous thromboembolismlaboratory testing (factor V Leiden and factor II c.*97G>A),2018 update: a technical standard of the [place] [employer] MedicalGen[employer] and Genomics ([employer]MG). Sayda Med. 2018 Oct;20(12):6555-7335.doi: 10.1038/z28529-480-5377-t. Epub 2017Aug 07. PMID: 30590648. US THYROIDon 01-26-2023 US THYROID EXAMINATION: US THYR OID HISTORY: Non-toxic multinodular goiter COMPARISON: 02/08/2022 TECHNIQUE: [...] left thyroid TR 3 nodule TI-RADS: The [place] [employer] TI-RADS committee's white paper recommendations for thyroid lesions classified as TR3 (mildly suspicious) are listed below: > 1.5 cm. Follow-up ultrasound in 1, 3, and 5 years. > 2.5 cm. FNA. J. Am Ava Radiol 2017;14:587-595. Electronically authenticated by: HERMANN GUZMAN Date: 2023-01-26 09:07 Normal [facility] CBC AUTO DIFFon 11-16-2022 BASO # 0.0 103/ul Normal 0.0-0.1 [facility] Comment on above: Performed By: #### C BC #### [facility] [address] [place] [address] Dr. Chanel Manriquez Basophils/100 WBC (Bld) 0.6 % Normal 0.2-2.0 [facility] Comment on above: Performed By: #### C BC #### [facility] [address] [address] [address] Chanel Manriquez EO # 0.3 103/ul Normal 0.0-0.7 [facility] Comment on above: Performed By: #### C BC #### [facility] [address] [place] [address] Dr. Chanel Manriquez Eosinophils/100 WBC (Bld) 4.9 % Normal 0.9-7.0 [facility] Comment on above: Performed By: #### C BC #### [facility] [address] [place] [address] Dr. Chanel Manriquez Erythrocyte distribution width (RBC) [Ratio] 13.1 % Normal 11.0-15.0 [facility] Comment on above: Performed By: #### C BC #### [facility] [address] [place] [address] Dr. Chanel Manriquez Hematocrit (Bld) [Volume fraction] 39.7 % Normal 36.0-48.0 [facility] Comment on above: Performed By: #### C BC #### [facility] [address] [place] [address] Dr. Chanel Manriquez Hemoglobin (Bld) [Mass/Vol] 13.5 g/dL Normal 12.0-16.0 [facility] Comment on above: Performed By: #### C BC #### [facility] [address] [place] [address] Dr. Chanel Manriquez IG # 0.02 10e3/ul Normal 0.00-0.03 [facility] Comment on above: Performed By: #### C BC #### [facility] [address] [place] [address] Dr. Chanel Manriquez IG % 0.3 % Normal 0.0-0.5 [facility] Comment on above: Performed By: #### C BC #### [facility] [address] [place] [address] Dr. Chanel Manriquez LYMPH # 1.2 103/ul Normal 1.2-3.8 [facility] Comment on above: Performed By: #### C BC #### [facility] [address] [place] [address] Dr. Chanel Manriquez Lymphocytes/100 WBC (Bld) 18.5 % Critically low 20.5-60.0 [facility] Comment on above: Performed By: #### C BC #### [facility] [address] [place] [address] Dr. Chanel Manriquez MANUAL DIFF REQ NO Normal [facility] Comment on above: Performed By: #### C BC #### [facility] [address] [address] [address] Chanel Manriquez MCH (RBC) [Entitic mass] 28.9 pg Normal 26.7-34.0 [facility] Comment on above: Performed By: #### C BC #### [facility] [address] [address] [address] Chanel Manriquez MCHC (RBC) [Mass/Vol] 34.0 g/dL Normal 29.9-35.2 [facility] Comment on above: Performed By: #### C BC #### [facility] [address] [address] [address] Chanel Manriquez MCV (RBC) [Entitic vol] 85.0 fL Normal 81.0-99.0 [facility] Comment on above: Performed By: #### C BC #### [facility] [address] [place] [address] Dr. Chanel Manriquez MONO # 0.7 103/ul Normal 0.3-0.8 [facility] Comment on above: Performed By: #### C BC #### [facility] [address] [place] [address] Dr. Chanel Manriquez Monocytes/100 WBC (Bld) 10.7 % Normal 1.7-12.0 [facility] Comment on above: Performed By: #### C BC #### [facility] [address] [address] [address] Chanel Manriquez NEUT # 4.1 103/ul Normal 1.4-6.5 [facility] Comment on above: Performed By: #### C BC #### [facility] [address] [place] [address] Dr. Chanle Manriquez Neutrophils/100 WBC (Bld) 65.0 % Normal 43.0-75.0 [facility] Comment on above: Performed By: #### C BC #### [facility] [address] [place] [address] Dr. Chanel Manriquez Platelet mean volume (Bld) [Entitic vol] 9.3 fL Critically low 9.5-13.5 [facility] Comment on above: Performed By: #### C BC #### [facility] [address] [place] [address] Dr. Chanel Manriquez PLT 271 103/ul Normal 150-450 [facility] Comment on above: Performed By: #### C BC #### [facility] [address] [place] [address] Dr. Chanel Manriquez RBC 4.67 106/ul Normal 4.20-5.40 [facility] Comment on above: Performed By: #### C BC #### [facility] [address] [place] [address] Dr. Chanel Manriquez WBC 6.3 103/ul Normal 4.0-11.0 [facility] Comment on above: Performed By: #### C BC #### [facility] [address] [place] [address] Dr. Chanel Manriquez GLYCOHEMOGLOBIN A1Con 2022 ADA RECOMMENDATION SEE BELOW Normal [facility] Comment on above: Result Comment: ADA RECOMMENDED LIMIT 4.0 - 6.0 ADA THERAPEUTIC TARGET < 7.0 ACTION SUGGESTED > 7.0 Performed By: #### A 1C #### [facility] [address] [place] [address] Dr. Chanel Manriquez Glucose [Mass/Vol] 108 mg/dL Normal [facility] Comment on above: Performed By: #### A 1C #### [facility] [address] [place] [address] Dr. Chanel Manriquez HbA1c (Bld) [Mass fraction] 5.4 % Normal 4.5-6.2 [facility] Comment on above: Performed By: #### A 1C #### [facility] [address] [place] [address] Dr. Chanel Manriquez LIPID PROFILEon 11-16-2022 CHOL-HDL RATIO NORM SEE BELOW Normal [facility] Comment on above: Result Comment: 3.3 - 4.4 LOW RISK 4.4 - 7.1 AVERAGE RISK 7.1 - 11.0 MODERATE RISK >11.0 HIGH RISK Performed By: #### T SH, CMP, LIPID #### [facility] [address] [address] [address] Chanel Manriquez Cholesterol [Mass/Vol] 135 mg/dL Normal <=200 [facility] Comment on above: Performed By: #### T SH, CMP, LIPID #### [facility] [address] [address] [address] Chanel Manriquez Cholesterol in HDL [Mass/Vol] 40 mg/dL Normal 40-60 [facility] Comment on above: Performed By: #### T SH, CMP, LIPID #### [facility] [address] [address] [address] Chanel Manriquez Cholesterol in LDL [Mass/Vol] 80.4 mg/dL Normal [facility] Comment on above: Performed By: #### T SH, CMP, LIPID #### [facility] [address] [address] [address] Chanel Manriquez Cholesterol.total/ Cholesterol in HDL [Mass ratio] 3.4 {ratio} Normal [facility] Comment on above: Performed By: #### T SH, CMP, LIPID #### [facility] [address] [address] [address] Chanel Manriquez HDL NORMAL > or = 60 mg/dl - LO W CARDIOVASCULAR RISK <40 mg/dl - HIGH CARDIOVASCULAR RISK Normal [facility] Comment on above: Performed By: #### T SH, CMP, LIPID #### [facility] [address] [address] [address] Chanel Manriquez LDL CALC NORMAL SEE BELOW Normal [facility] Comment on above: Result Comment: <100 mg/dl OPTIMAL 100 - 129 mg/dl NEAR OR ABOVE OPTIMAL 130 - 159 mg/dl BORDERLINE HIGH 160 - 189 mg/dl HIGH >190 mg/dl VERY HIGH Performed By: #### T SH, CMP, LIPID #### [facility] [address] [address] [address] Chanel Manriquez Triglyceride [Mass/Vol] 73 mg/dL Normal <=150 [facility] Comment on above: Performed By: #### T SH, CMP, LIPID #### [facility] [address] [address] [address] Chanel Manriquez VLDL CALC 14.6 mg/dL Normal [facility] Comment on above: Performed By: #### T SH, CMP, LIPID #### [facility] [address] [place] [address] Dr. Chanel Manriquez PROF 14(COMP METB)on 023 Albumin [Mass/Vol] 3.4 g/dL Normal 3.4-5.0 [facility] Comment on above: Performed By: #### T SH, CMP, LIPID #### [facility] [address] [place] [address] Dr. Chanel Manriquez Albumin/Globulin [Mass ratio] 0.9 {ratio} Normal [facility] Comment on above: Performed By: #### T SH, CMP, LIPID #### [facility] [address] [place] [address] Dr. Chanel Manriquez ALP [Catalytic activity/Vol] 62 U/L Normal 46-116 [facility] Comment on above: Performed By: #### T SH, CMP, LIPID #### [facility] [address] [place] [address] Dr. Chanel Manriquez ALT [Catalytic activity/Vol] 17 U/L Normal 14-59 [facility] Comment on above: Performed By: #### T SH, CMP, LIPID #### [facility] [address] [place] [address] Dr. Chanel Manriquez Anion gap [Moles/Vol] 10.5 mmol/L Normal [facility] Comment on above: Performed By: #### T SH, CMP, LIPID #### [facility] [address] [place] [address] Dr. Chanel Manriquez AST [Catalytic activity/Vol] 15 U/L Normal 15-37 [facility] Comment on above: Performed By: #### T SH, CMP, LIPID #### [facility] [address] [place] [address] Dr. Chanel Manriquez Bilirubin [Mass/Vol] 0.5 mg/dL Normal 0.2-1.0 [facility] Comment on above: Performed By: #### T SH, CMP, LIPID #### [facility] [address] [place], [place] [id number] Dr. Chanel Manriquez Calcium [Mass/Vol] 8.7 mg/dL Normal 8.5-10.1 [facility] Comment on above: Performed By: #### T SH, CMP, LIPID #### [facility] [address] [address] [address] Chanel Manriquez Chloride [Moles/Vol] 104 mmol/L Normal 98-107 [facility] Comment on above: Performed By: #### T SH, CMP, LIPID #### [facility] [address] [place] [address] Dr. Chanel Manriquez CO2 [Moles/Vol] 28.4 mmol/L Normal 21.0-32.0 [facility] Comment on above: Performed By: #### T SH, CMP, LIPID #### [facility] [address] [place] [address] Dr. Chanel Manriquez Creatinine [Mass/Vol] 0.79 mg/dL Normal 0.55-1.02 [facility] Comment on above: Performed By: #### T SH, CMP, LIPID #### [facility] [address] [place] [address] Dr. Chanel Manriquez EGFR-AF NEW ZEALANDER >60 Normal >=60 [facility] Comment on above: Performed By: #### T SH, CMP, LIPID #### [facility] [address] [place] [address] Dr. Chanel Manriquez EGFR-NON AF NEW ZEALANDER >60 Normal >=60 [facility] Comment on above: Performed By: #### T SH, CMP, LIPID #### [facility] [address] [place] [address] Dr. Chanel Manriquez Globulin (S) [Mass/Vol] 3.9 g/dL Normal [facility] Comment on above: Performed By: #### T SH, CMP, LIPID #### [facility] [address] [place] [address] Dr. Chanel Manriquez Glucose [Mass/Vol] 101 mg/dL Normal 74-106 [facility] Comment on above: Performed By: #### T SH, CMP, LIPID #### [facility] [address] [address] [address] Chanel Manriquez Potassium [Moles/Vol] 3.9 mmol/L Normal 3.5-5.1 [facility] Comment on above: Performed By: #### T SH, CMP, LIPID #### [facility] [address] [address] [address] Chanel Manriquez Protein [Mass/Vol] 7.3 g/dL Normal 6.4-8.2 [facility] Comment on above: Performed By: #### T SH, CMP, LIPID #### [facility] [address] [address] [address] Chanel Manriquez Sodium [Moles/Vol] 139 mmol/L Normal 136-145 [facility] Comment on above: Performed By: #### T SH, CMP, LIPID #### [facility] [address] [place] [address] Dr. Chanel Manriquez Urea nitrogen [Mass/Vol] 13.0 mg/dL Normal 7.0-18.0 [facility] Comment on above: Performed By: #### T SH, CMP, LIPID #### [facility] [address] [address] [address] Chanel Manriquez Urea nitrogen/Creatinin e [Mass ratio] 16.5 mg/mg Normal [facility] Comment on above: Performed By: #### T SH, CMP, LIPID #### [facility] [address] [place] [address] Dr. Chanel Manriquez TSHon 11-16-2022 TSH 3.672 uIU/mL Normal 0.358-3.740 [facility] Comment on above: Performed By: #### T SH, CMP, LIPID #### [facility] [address] [place] [address] Dr. Chanel Manriquez MG MAMM SCREEN 3D MELISSA CADon 06-19-2022 MG MAMM SCREEN 3D MELISSA CAD Patient: MILDRED REED Exam Date: 06/19/2022 : 1980 Gender:F Ordering : DR CESAR LUTZ . Admission #: [id number] Family : DR JULIA MITCHELL M.D. Order #: [id number] CLICK HERE TO VIEW EXAM RADIOLOGY REPORT [...] brain, lung cancer at age 68. LOCATION: [facility] BREAST COMPOSITION: Scattered areas fibroglandular density. FINDINGS: [...] Huntley M.D. on 06/20/2022 at 14:07 Normal [facility] PAP ACOG PANEL 2: 30 to 65on 04-16-2022 . . Normal [facility] Comment on above: Result Comment: Perf ormed at: WB Performed By: #### [id number] #### [facility] [address] [address] [address] Chanel Manriquez Age Gdln ACOG Testing 30-65 Normal [facility] Comment on above: Performed By: #### [id number] #### [facility] [address] [address] [address] Chanel Manriquez DIAGNOSIS: Comment Normal [facility] Comment on above: Result Comment: NEGA TIVE FOR INTRAEPITHELIAL LESION OR MALIGNANCY. Performed at: WB Performed By: #### [id number] #### [facility] [address] [address] [address] Chanel Manriquez HPV Aptima Negative Normal Negative [facility] Comment on above: Result Comment: This nucleic acid amplification test detects fourteen high-risk HPV types (16,18,31,33,35,39,45,51,52,56,58,59,66,68) without differentiation. Performed at: =G Performed By: #### [id number] #### [facility] [address] [place] [address] Dr. Chanel Manriquez Methodology: Comment Normal [facility] Comment on above: Result Comment: This liquid based ThinPrep(R) pap test was screened with the use of an image guided system. Performed at: WB Performed By: #### [id number] #### [facility] [address] [place] [address] Dr. Chanel Manriquez Note: Comment Normal [facility] Comment on above: Result Comment: The Pap smear is a screening test designed to aid in the detection of premalignant and malignant conditions of the uterine cervix. It is not a diagnostic procedure and should not be used as the sole means of detecting cervical cancer. Both false-positive and false-negative reports do occur. . Performed at: WB Performed By: #### [id number] #### [facility] [address] [place] [address] Dr. Chanel Manriquez Performed by: Comment Normal [facility] Comment on above: Result Comment: Jasbir Young, Bench Loom Weaver (ASCP) Performed at: WB Performed By: #### [id number] #### [facility] [address] [place] [address] Dr. Chanel Manriquez Specimen adequacy: Comment Normal [facility] Comment on above: Result Comment: Sati sfactory for evaluation. Endocervical and/or squamous metaplastic cells (endocervical component) are present. Performed at: WB Performed By: #### [id number] #### [facility] [address] [place] [address] Dr. Chanel Manriquez US THYROIDon 02-09-2022 US THYROID EXAMINATION: US THYR OID HISTORY: Non-toxic multinodular goiter COMPARISON: Ultrasound thyroid [...] one year is recommended. TR 4: The [employer] TI-RADS committee's white paper recommendations for thyroid lesions classified as TR4 (moderately suspicious) are listed below: > 1.0 cm. Follow-up ultrasound in 1, 2, 3, and 5 years. > 1.5 cm. FNA. J. Am Ava Radiol 2017;14:587-595. Electronically authenticated by: CLIFTON HUNTLEY Date: 2022-02-09 10:40 Normal [facility] SURGICAL PATHOLOGYon 019 SURGICAL PATHOLOGY Specimen #: [id number] Submitting Physician: GIDEON PRYOR MD FINAL DIAGNOSIS Outside slides [id number], [id number], B1; 04/06/2019; [facility] [place]: 1. Right thyroid and partial left [...] Dr. Vicki Badillo, a colleague on the [facility] head and neck pathology service was consulted, and she agrees with the diagnoses. If you would like to discuss this case, please contact my office at [phone]. MAXIM/kmr 04/12/19 Efraín Wayne M.D. (Electronic Signature) SPECIMEN SUBMITTED A: 17 SLIDES ([id number]) CLINICAL DATA None provided. SLIDE/BLOCK DESCRIPTION A. 17 SLIDES ([id number]): Date of Report: 04/13/2019 Date of Procedure: 04/09/2019 Date of Receipt: 04/09/2019 Submitted by: GIDEON PRYOR MD Location: Diagnostic interpretation performed at [facility], [address] [place] [address]. CLIA Number: [id number] Normal [facility] Comment on above: Performed By: #### S #### See report for performing lab information. Vital Signs Date Time Vital Sign Value Performing Clinician Facility 12-08-2023 15:00-0500 Body height 154.94 cm Julia Mitchell Other [facility] Other 12-08-2023 15:00-0500 Body mass index (BMI) [Ratio] 35.33 kg/m2 Julia Mitchell Other [facility] Other 12-08-2023 15:00-0500 Body weight 84.82 kg Julia Mitchell Other [facility] Other 12-08-2023 15:00-0500 Diastolic blood pressure 81 mm[Hg] Julia Mitchell Other [facility] Other 12-08-2023 15:00-0500 Systolic blood pressure 121 mm[Hg] Julia Mitchell Other [facility] Other 02-04-2023 11:00-0400 Body height 154.94 cm Julia Mitchell Other [facility] Other 02-04-2023 11:00-0400 Body mass index (BMI) [Ratio] 35.9 kg/m2 Julia Mitchell Other [facility] Other 02-04-2023 11:00-0400 Body weight 86.18 kg Julia Mitchell Other [facility] Other 02-04-2023 11:00-0400 Diastolic blood pressure 82 mm[Hg] Julia Mitchell Other [facility] Other 02-04-2023 11:00-0400 SaO2% (BldA) [Mass fraction] 97 % Julia Mitchell Other [facility] Other 02-04-2023 11:00-0400 Systolic blood pressure 122 mm[Hg] Julia Mitchell Other [facility] Other 11-21-2022 16:00-0500 Body height 154.94 cm Julia Mitchell Other [facility] Other 11-21-2022 16:00-0500 Body mass index (BMI) [Ratio] 36.46 kg/m2 Julia Mitchell Other [facility] Other 11-21-2022 16:00-0500 Body weight 87.54 kg Julia Mitchell Other [facility] Other 11-21-2022 16:00-0500 Diastolic blood pressure 88 mm[Hg] Julia Mitchell Other [facility] Other 11-21-2022 16:00-0500 SaO2% (BldA) [Mass fraction] 97 % Julia Mitchell Other [facility] Other 11-21-2022 16:00-0500 Systolic blood pressure 132 mm[Hg] Julia Mitchell Other [facility] Other Encounters Encounter Date Encounter Type Care Provider Facility Start: 03-23-2024 End: 03-23-2024 ambulatory JONATHAN H TIMMIS Not Available Start: 03-01-2024 End: 03-01-2024 ambulatory Clifton Huntley Facility:[facility] Start: 03-01-2024 End: 03-01-2024 ambulatory MD Clifton Huntley Work Phone: [facility] Work Phone: Start: 03-01-2024 End: 03-01-2024 Departed Referred MD Clifton Huntley Work Phone: [facility] Path [facility] Start: 02-11-2024 End: 02-11-2024 ambulatory JONATHAN H TIMMIS Not Available Start: 02-07-2024 Non-patient / Non-visit MD Pearce Work Phone: [facility] Work Phone: Start: 01-22-2024 Non-patient / Non-visit MD Pearce Work Phone: [facility] Work Phone: Start: 12-17-2023 Non-patient / Non-visit MD Pearce Work Phone: [facility] Work Phone: Start: 12-08-2023 End: 12-08-2023 ambulatory Julia Mitchell Other [facility] Other Start: 12-08-2023 Encounter for genera l adult medical examination without abnormal findings Julia Mitchell [facility] Start: 12-08-2023 Periodic preventive med est patient 40-64yrs Julia Mitchell [facility] Start: 07-02-2023 End: 07-02-2023 ambulatory Julia Mitchell Other [facility] Other Start: 07-02-2023 Telephone encounter Julia Mitchell [facility] Start: 02-04-2023 End: 02-04-2023 ambulatory Julia Mitchell Other [facility] Other Start: 02-04-2023 Office outpatient vi sit 15 minutes Julia Mitchell [facility] Start: 01-31-2023 End: 01-31-2023 ambulatory Julia Mitchell Other [facility] Other Start: 01-31-2023 Telephone encounter Julia Mitchell [facility] Start: 01-25-2023 End: 01-26-[address] JULIA MITCHELL Facility:[facility] Start: 01-15-[address] JULIA MITCHELL [facility] ity:[facility] Start: 11-22-2022 Encounter for genera l adult medical examination without abnormal findings DR JULIA MITCHELL [facility] Start: 11-21-2022 End: 11-21-2022 ambulatory Julia Mitchell Other [facility] Other Start: 11-21-2022 Encounter for genera l adult medical examination without abnormal findings Julia Mitchell [facility] Start: 11-21-2022 Periodic preventive med est patient 40-64yrs Julia Mitchell [facility] Start: 11-16-2022 End: 11-17-[address] JULIA MITCHELL Facility:[facility] Start: 11-16-2022 End: 11-17-2022 Encounter for general adult medical examination without abnormal findings DR JULIA MITCHELL Facility:[facility] Start: 11-13-2022 End: 11-13-2022 ambulatory Juliasara Mitchell Other [facility] Other Start: 11-13-2022 Encounter for genera l adult medical examination without abnormal findings Juliasara Mitchell [facility] Start: 11-13-2022 Telephone encounter Julia Paula [facility] Start: 08-13-2022 End: 11-22-[address] JULIA MITCHELL Facility:[facility] Start: 06-19-2022 End: 06-20-[address] JULIA MITCHELL Facility:[facility] Start: 04-10-2022 End: 04-10-[address] CESAR LUTZ . Facility:[facility] Start: 04-10-2022 Gynecological examin ation normal Julia Paula Other [facility] Other Start: 02-08-2022 End: 02-09-[address] JONATHAN FERNÁNDEZ Facility:[facility] Start: 03-13-2021 Adult health examination Lou isra Paula Other [facility] Other Procedures Date Procedure Procedure Detail Performing Clinician Start: 04-10-2022 Screening for malign ant neoplasm of breast Julia Paula Other Start: 10-30-2021 Removal of intrauter ine device Julia Mitchell Other Start: 02-15-2019 General examination of patient Julia Mitchell Other Contraception care education Julia Paula Other Insertion of intraut erine contraceptive device Julia Mitchell Other Screening for malign ant neoplasm of skin Julia Mitchell Other Payers Date Payer Category Payer [facility] [id number] 2019 Unknown [id number] 1980 Unknown [id number] 3 1980 Unknown [id number] 3 1980 Unknown [id number] 3 1980 Unknown [id number] [id number] 3 1980 Unknown [id number] [id number] 3 1980 Unknown [id number] [id number] 3 1980 Unknown [id number] [id number] 3 1980 Unknown [id number] [id number] 59 1980 Unknown [id number] [address] Self-pay Medicaid [facility] [id number] Unknown [id number] Unknown [id number] 1 Social History Date Type Detail Facility Sex Assigned At [facility] Other Start: 02-04-2023 Tobacco smoking stat [facility] Never smoked tobacco (finding) [facility] Start: 1980 Sex Assigned At Female F [facility] Evaluation note 12-08-2023 Note Date & Type [...] further guidance if her test is positive. [facility] Other Evaluation note 07-02-2023 Note Date & Type Note Facility 07-02-2023 Evaluation note Encounter Date Diagnosis Assessment Notes Jun, Screening mammogram for breast cancer (ICD-10 - Z12.31) [facility] Other Evaluation note 02-04-2023 Note Date & Type Note Facility 02-04-2023 Evaluation note Encounter Date Diagnosis Assessment Notes Feb, Hypertension (ICD-10 - I10) Present readings are normal. Continue present med. Discussed decreasing salt and starting exercise to improve BP. Would not add or increase BP med at this time. Pt in agreement. [facility] Other Evaluation note 11-21-2022 Note Date & [...] (ICD-10 - E06.3) Continued followup w ENT [facility] Other Evaluation note 11-13-2022 Note Date & Type Note Facility 11-13-2022 Evaluation note Encounter Date Diagnosis Assessment Notes Nov, Wellness examination (ICD-10 - Z00.00) [facility] Other Evaluation note Note Date & Type Note Facility Evaluation note No Information Ku[facility] Other Evaluation note Note Date & Type Note Facility Evaluation note No assessment information availa jono [facility] Work Phone: History general Narrative - Reported Note Date & Type Note Facility History general Narrative - Reported Type Medical History MNG Medical History Hshimoto's disease Medical History Hypertension Medical History Hypothyroidism Medical History Anxiety Surgical History C section x2 Surgical History Right Carpal Tunnel Surgical History Thyroidectomy (right) Surgical History Thyroidectomy (piece of left) [facility] Other History general Narrative - Reported Note Date & Type Note Facility History general Narrative - Reported Type Medical History MNG Medical History Hshimoto's disease Medical History Hypertension Medical History Hypothyroidism Medical History Anxiety Surgical History C section x2 Surgical History Right Carpal Tunnel Surgical History Thyroidectomy (right) Surgical History Thyroidectomy (piece of left) Hospitalization History SEE SURGICAL HX [facility] Other Summary Purpose Family History No Family History Records FoundNo Family History Records FoundNo Family History Records FoundNo Family History Records Found Advance Directives No Advanced Directives Records Found Advance Directive Response Recorded Date/ Time Advance Directives No July 10:57am Additional Source Comments INFORMATION SOURCE (unrecogn ized section and content) DATE CREATED AUTHOR 04/14/2019 [facility] DATE CREATED AUTHOR AUTHOR'S ORGANIZ ATION 02/01/[address] [facility] DATE CREATED AUTHOR AUTHOR'S ORGANIZ ATION 03/05/2024 [facility] DATE CREATED AUTHOR AUTHOR'S ORGANIZ ATION 03/25/2024 [facility] EPIC REASON FOR VISIT (unrecogniz ed section and content) Lab orderswellnessBlood Pres sureBlood PressureNo Informationwellness Care Teams (unrecognized sec tion and content) Team Status: Active Member Role Status Dates Janet Grant MD Primary Care Provider Active Start: December 17, 2023 Julia Mitchell MD Attending Provider Active St art: December 17, 2023 Team Status: Active Member Role Status Dates Janet Grant MD Primary Care Provider Active Start: January 22, 2024 HARINDER Denis Attending Provider Active Start : January 22, 2024 Team Status: Active Member Role Status Dates Janet Grant MD Primary Care Provider Active Start: February 07, 2024 Julia Mitchell MD Attending Provider Active St art: February 07, 2024 Team Status: Inactive Member Role Status Dates Clifton Huntley MD Attending Provider Active Start: March 01, 2024 End: March 01, 2024 Goals (unrecognized section and content) Goals may be documented in a n alternate section FOR RECORDS PERTAINING TO PATIENTS WHO ARE [...] BE BASED ON THE PRIMARY CLINICAL RECORDS. [employer] provides no warranty or guarantee of the accuracy or completeness of information in this document.
--- NOTE | 2024-06-21 20:43 | US_ITS ---
The [address] [address] Patient Name: RHONDA WYATT MRN: [id number] date: 1980 Sex: F Assigned Patient Location: US Current Patient Location: Accession/Order Number: [id number] Exam Date: 06/21/2024 20:48 Report Date: 06/22/2024 14:17 At the request of: JONATHAN FERNÁNDEZ Procedure: US thyroid EXAMINATION: US thyroid HISTORY: MALIGNANT TUMOR OF THYROID GLAND C73 COMPARISON: 01/28/2024 TECHNIQUE: Sonographic images of the thyroid gland were obtained. FINDINGS: The right thyroid lobe is surgically absent. Area of hypoechogenicity in the thyroid fossa measuring 1.3 x 0.5 x 0.9 cm likely postsurgical change or residual/recurrent thyroid tissue The thyroid isthmus measures 1 mm. No focal nodule The left thyroid lobe is very heterogeneous in echotexture measuring 3.7 x 1.8 x 1.6 cm. Single nodule. Nodule 1:1.5 x 1.3 x 1.4 cm. Mixed solid and cystic, hypoechoic, wide, smooth margins, no calcifications. TR 3 US/US thyroid IMPRESSION: Stable 1.5 cm left thyroid nodule TI-RADS: The [place] [employer] TI-RADS committee's white paper recommendations for thyroid lesions classified as TR3 (mildly suspicious) are listed below: > 1.5 cm. Follow-up ultrasound in 1, 3, and 5 years. > 2.5 cm. FNA. J. Am Marcella Radiol 2017;14:587-595. Electronically authenticated by: HERMANN GUZMAN Date: 06/22/2024 14:17
== END 2024-06-21 20:41 | disposition home or self-care (01) ==
PROVIDERS: PCP Family Medicine; Visit Provider Otolaryngology
DX: C73 Malignant neoplasm of thyroid gland (principal)
CPT/HCPCS: 76536

== ENCOUNTER 2024-12-16 18:20 | Outpatient (OUT) | payer BC, SELFPAY ==
--- NOTE | 2024-12-16 18:21 | US_ITS ---
[address] [address] Patient Name: RHONDA WYATT MRN: [id number] date: 1980 Sex: F Assigned Patient Location: US Current Patient Location: Accession/Order Number: [id number] Exam Date: 12/16/2024 18:30 Report Date: 12/17/2024 07:48 At the request of: JONATHAN FERNÁNDEZ Procedure: US thyroid EXAMINATION: US thyroid HISTORY: THYROID NODULE E04.1 COMPARISON: Ultrasound thyroid 06/21/2024 FINDINGS: RIGHT LOBE: Prior right side thyroidectomy with small amount of hypoechoic tissue within the thyroid bed, 1.1 x 0.5 x 0.7 cm. Lobe size: N/A LEFT LOBE: Markedly heterogeneous and contains a 1.5 x 1.3 x 1.2 cm TR 3 nodule within inferior pole. Lobe size: 3.7 x 2.1 x 2.0 cm ISTHMUS: Slightly heterogeneous, but normal thickness. Thickness: 2 mm US/US thyroid IMPRESSION: 1. Stable small amount of hypoechoic tissue within the right thyroid bed post thyroidectomy; nonspecific but favoring postsurgical changes or residual thyroid tissue. 2. Stable heterogeneous appearance of left lobe and stable 1.5 cm TR 3 nodule. TR3 (mildly suspicious): > 1.5 cm, follow-up ultrasound in 1, 3, and 5 years. > 2.5 cm, fine needle aspiration. Electronically authenticated by: PRINCE HERNANDEZ Date: 12/17/2024 07:48
--- OUTSIDE RECORDS SUMMARY | 2024-12-16 18:28 | XMS_ITS | CCD ---
Author Organization [facility] CliniSymt Care Team Providers Care Assistant Facility Manager Name Role Phone Julia Mitchell Unavailable PAULA, [...] Huntley Attending Unavailable ZiebClifton contreras Admitting Unavailable TIMMIPATRIZIA De León Attending Unavailable TIMMIS, PATRIZIA Lee Attending Unavailable TIMMIS, PATRIZIA Lee Attending Unavailable Julia Mitchell MD Primary Care Provider [phone] Allergies Allergy Classification Reported Allergen(s) Allergy Type Date of Onset Reaction(s) Facility (1 source) Bacitracin Drug Allergy 9 [facility] Repository (2 sources) patient allergy list reviewed by nurse or physicia Propensity to adverse reactions 9 Comment:Done [facility] Other (2 sources) Allergies Reconciled Propensity to adverse reactions Unknown [facility] Other (3 sources) Bacitracin Drug Allergy 4 [facility] Healthcare Work Phone: Medications Current Medications Medication Drug Class(es) Dates Sig (Normalized) Sig (Original) ibuprofen 600 mg oral tablet (1 source) Nonsteroidal Anti-inflammatory Drug Start: 08-14-2017 take 600 mg by mouth every six hours Ibuprofen Active 600 MG PO Every 6 hours 30 7 August 14, 2017 12:00am levothyroxine sodium 0.125 mg oral tablet (8 sources) l-Thyroxine Start: 02-24-2024 End: 02-23-2025 take 1 tablet by mouth before mealtime levothyroxine (Synthroid) 125 MCG tablet Indications: Malignant tumor of thyroid gland (CMS/HCC) Take 1 tablet (125 mcg) by mouth in the morning. Take before meals. 90 tablet 3 02/24/2024 02/23/2025 Active Start: 08-12-2017 take 50 ug by mouth [...] succinate 50 mg extended release oral tablet (11 sources) beta-Adrenergic Dustin Start: 01-22-2024 take 1 tablet by mouth once daily Metoprolol Succinate Active 0 .ROUTE .COMPLEX 90 January 22, 2024 2:33pm TAKE 1 TABLET BY MOUTH EVERY DAY Start: 01-22-2024 End: 01-22-2024 take 1 tablet by mouth once daily metoprolol succinate XL (Toprol-XL) 50 MG 24 hr tablet Take 50 mg by mouth Daily 01/23/2024 Active take 1 tablet by stefan th [...] Tramadol Active 50 MG PO Q4H 30 7 August 14, 2017 12:00am Completed/Discontinued Medications Medication Drug Class(es) Dates Sig (Normalized) Sig (Original) 21 day ethinyl estradiol 0.834084 mg/hr / etonogestrel 0.005 mg/hr vaginal system (5 sources) Progestin, Estrogen NuvaRing 0.1 2-0.015 MG/24HR [address] for 3 weeks, remove, and replace with a new ring after 7 day break Vaginal Not-Taking Problems Active Problems Problem Classification Problem Date Documented Date Episodic/Chronic Anxiety disorders (8 sources) Anxiety; Translations: [Anxiety disorder, unspecified] Chronic Cancer of thyroid (5 sources) Malignant tumor of thyroid gland; Translations: [Malignant neoplasm of thyroid gland] Onset: 02-11-2024 06-30-2024 Chronic Chronic obstructive pulmonary disease and bronchiectasis [...] contraceptive device] Resolved: 04-10-2022 Episodic Essential hypertension (12 sources) Hypertensive disorder; Translations: [Essential (primary) hypertension] Onset: 02-11-2024 Chronic Other ear and sense organ disorders (3 sources) Chronic non-infective otitis externa; Translations: [Other otitis externa, bilateral] Onset: 02-11-2024 02-11-2024 Chronic Other nervous system disorders (3 sources) Carpal tunnel syndrome of left wrist; Translations: [Carpal tunnel syndrome, left upper limb] Onset: 02-11-2024 02-11-2024 Chronic Other nervous system disorders (3 sources) Carpal tunnel syndrome of right wrist; Translations: [Carpal tunnel syndrome, right upper limb] Onset: 02-11-2024 02-11-2024 Chronic Other nutritional; endocrine; and metabolic disorders [...] sources) Franco thyroiditis; Translations: [Autoimmune thyroiditis] Onset: 09-04-2010 Chronic Past or Other Problems Problem Classification [...] Test Name Value Interpretation Reference Range Facility [facility] 03-01-2024 L Specimen: [id number] Re ceived: 03/03/24 Status: PRACHI Req Num: [id number] Spec Type: Cytology Subm Dr: Clifton Huntley MD Tissues: A FNA SLIDES NOPATH (LT THYROID NOD) Procedures: Cyto Int and Re, PAPSTN/5 Age/ Patient Sex Location Account Attending Physician Mlidred Reed 43/F [facility] [id number] Clifton Huntley MD SPEC NUM: [id number] RECD: 03/03/24 STATUS: PRACHI LACY NUM: [id number] AVA: 03/01/24 DR: Clifton Huntley MD ENTERED: 03/03/[address]: Dl,Lab KENJIAKPATRIZIA De León MD SPEC TYPE: Cytology DEPT: LYNSEY NCYT ENTERED BY: [id number] RECV BY: [id number] ORDERED: Cyto Int and Re, PAPSTN/5 ORDERED: Cyto Int and Re, PAPSTN/5 Pathological Diagnosis Left inferior thyroid nodule, ultrasound?guided fine-needle aspiration: ? Non?diagnostic ([place] category 1). ? 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 Gross Description Received in Cytolyt labeled with the patient's name, date of and left thyroid nodule, inferior per requisition is < 1 ml colorless clear fixed fluid. 1 Thin Prep slides are prepared. 4 spray fixed smears to be stained pap are additionally received. ([place]) CPT Codes 37098 -------- -------- Specimen: [id number] Received: 03/03/24-1257 Status: PRACHI Lacy Num: [id number] Spec Type: Cytology Subm Dr: Clifton Huntley MD Tissues: A FNA SLIDES NOPATH (LT THYROID NOD) Procedures: Cyto Int and Re, PAPSTN/5 -------- Patient: Mildred Reed [id number] (Continued) -------- Signed (signature on file) Hermann Dias MD 03/04/24 0939 Normal [facility] Basophils Auto (Bld) [#/Vol] on 02-07-2024 Basophils (Bld) [#/Vol] 0.0 10 3/uL 0.0-0.1 [facility] Basophils/100 WBC Auto (Bld) on 02-07-2024 Basophils/100 WBC (Bld) 0.6 % 0.2-2.0 [facility] Cholesterol in LDL Calc [Mas s/Vol]on 02-07-2024 Cholesterol in LDL [Mass/Vol] 91.6 mg/dL [facility] Comment on above: <100 mg/dl [id number] 0-129 mg/dl NEAR OR ABOVE [id number] mg/dl BORDERLINE [id number] mg/dl HIGH>190 mg/dl VERY HIGH Cholesterol in VLDL Calc [Ma ss/Vol]on 02-07-2024 Cholesterol in VLDL [Mass/Vol] 19.4 mg/dL [facility] Eosinophils/100 WBC Auto (Bl d)on 02-07-2024 Eosinophils/100 WBC (Bld) 2.7 % 0.9-7.0 [facility] Erythrocyte distribution wid th Auto (RBC) [Ratio]on 02-07-2024 Erythrocyte distribution width (RBC) [Ratio] 12.7 % 11.0-15.0 [facility] Estimated glomerular filtrat ion rate (GFR) non- Americanon 02-07-2024 GFR/1.73 sq M.predicted among non-blacks MDRD (S/P/Bld) [Vol rate/Area] mL/min/{1.73_m2} >=60 [facility] Globulin Calc (S) [Mass/Vol] on 02-07-2024 Globulin (S) [Mass/Vol] 4.1 g/dL [facility] Glucose mean value [Mass/vol ume] in Blood Estimated from glycated hemoglobinon 02-07-2024 Average glucose Estimated from glycated hemoglobin (Bld) [Mass/Vol] 111 mg/dL [facility] Hematocrit Auto (Bld) [Volum e fraction]on 02-07-2024 Hematocrit (Bld) [Volume fraction] 41.4 % 36.0-48.0 [facility] Hemoglobin [Mass/volume] in Bloodon 02-07-2024 Hemoglobin (Bld) [Mass/Vol] 13.6 g/dL 12.0-16.0 [facility] Laboratory - Chemistry and C hemistry - challengeon 02-07-2024 Albumin [Mass/Vol] 3.4 g/dL 3.4-5.0 [facility] ALP [Catalytic activity/Vol] 69 U/L 46-116 [facility] ALT [Catalytic activity/Vol] 29 U/L 14-59 [facility] AST [Catalytic activity/Vol] 16 U/L 15-37 [facility] Bilirubin [Mass/Vol] 0.5 mg/dL 0.2-1.0 [facility] Calcium [Mass/Vol] 8.9 mg/dL 8.5-10.1 [facility] Chloride [Moles/Vol] 104 mmol/L 98-107 [facility] Cholesterol [Mass/Vol] 154 mg/dL <=200 [facility] Cholesterol in HDL [Mass/Vol] 43 mg/dL 40-60 [facility] Comment on above: > or =60 mg/dl - LOW CARDIOVASCULAR RISK<40 mg/dl - HIGH CARDIOVASCULAR RISK CO2 [Moles/Vol] 30.2 mmol/L 21.0-32.0 [facility] Creatinine [Mass/Vol] 0.88 mg/dL 0.55-1.02 [facility] GFR/1.73 sq M.predicted MDRD (S/P/Bld) [Vol rate/Area] mL/min/{1.73_m2} >=60 [facility] Glucose [Mass/Vol] 94 mg/dL 74-106 [facility] Potassium [Moles/Vol] 4.1 mmol/L 3.5-5.1 [facility] Protein [Mass/Vol] 7.5 g/dL 6.4-8.2 [facility] Sodium [Moles/Vol] 139 mmol/L 136-145 [facility] Triglyceride [Mass/Vol] 97 mg/dL <=150 [facility] TSH Qn 1.455 m[IU]/L 0.358-3.740 [facility] Urea nitrogen [Mass/Vol] 13.0 mg/dL 7.0-18.0 [facility] Urea nitrogen/Creatinin e [Mass ratio] 14.8 mg/mg [facility] Laboratory - Hematology and Cell countson 02-07-2024 HbA1c (Bld) [Mass fraction] 5.5 % 4.5-6.2 [facility] Comment on above: ADA RECOMMENDED LIMI T 4.0 - 6.0ADA THERAPEUTIC TARGET < 7.0ACTION SUGGESTED> 7.0 Immature granulocytes/100 WBC (Bld) 0.2 % 0.0-0.5 [facility] Leukocytes [#/volume] correc tiffany for nucleated erythrocytes in Blood by Automated counon 02-07-2024 WBC corrected for nucl RBC Auto (Bld) [#/Vol] 4.8 10 3/uL 4.0-11.0 [facility] Lymphocytes Auto (Bld) [#/Vo l]on 02-07-2024 Lymphocytes (Bld) [#/Vol] 1.4 10 3/uL 1.2-3.8 [facility] Lymphocytes/100 WBC Auto (Bl d)on 02-07-2024 Lymphocytes/100 WBC (Bld) 28.2 % 20.5-60.0 [facility] MCH Auto (RBC) [Entitic mass ]on 02-07-2024 MCH (RBC) [Entitic mass] 29.4 pg 26.7-34.0 [facility] MCHC Auto (RBC) [Mass/Vol]on 02-07-2024 MCHC (RBC) [Mass/Vol] 32.9 g/dL 29.9-35.2 [facility] MCV Auto (RBC) [Entitic vol] on 02-07-2024 MCV (RBC) [Entitic vol] 89.4 fL 81.0-99.0 [facility] Monocytes Auto (Bld) [#/Vol] on 02-07-2024 Monocytes (Bld) [#/Vol] 0.4 10 3/uL 0.3-0.8 [facility] Monocytes/100 WBC Auto (Bld) on 02-07-2024 Monocytes/100 WBC (Bld) 8.5 % 1.7-12.0 [facility] Neutrophils Auto (Bld) [#/Vo l]on 02-07-2024 Neutrophils (Bld) [#/Vol] 2.9 10 3/uL 1.4-6.5 [facility] Neutrophils/100 WBC Auto (Bl d)on 02-07-2024 Neutrophils/100 WBC (Bld) 59.8 % 43.0-75.0 [facility] No Panel Informationon 02-06 Eosinophils # (Auto) 0.1 10 3/uL 0.0-0.7 [facility] Immature Granulocyte # (Auto) 0.01 10 3/uL 0.00-0.03 [facility] Platelet mean volume Auto (B ld) [Entitic vol]on 02-07-2024 Platelet mean volume (Bld) [Entitic vol] 9.7 fL 9.5-13.5 [facility] Platelets Auto (Bld) [#/Vol] on 02-07-2024 Platelets (Bld) [#/Vol] 260 10 3/uL 150-450 [facility] RBC Auto (Bld) [#/Vol]on RBC (Bld) [#/Vol] 4.63 10 6/uL 4.20-5.40 [facility] Serum or plasma albumin/glob ulin mass ratioon 02-07-2024 Albumin/Globulin [Mass ratio] 0.8 {ratio} [facility] Serum or plasma anion gap de terminationon 02-07-2024 Anion gap [Moles/Vol] 8.9 mmol/L [facility] Serum or plasma total choles terol/high density lipoprotein (HDL) cholesterol mass kenia 02-07-2024 Cholesterol.total/ Cholesterol in HDL [Mass ratio] 3.6 {ratio} [facility] Comment on above: 3.3 - 4.4 LOW RISK4. 4 - 7.1 AVERAGE RISK7.1 - 11.0 MODERATE RISK>11.0 HIGH RISK No Panel Informationon 12-17 Factor II DNA Analysis Comment Comment . [facility] Comment on above: Technical Component performed at [facility] RTPProfessional Component performed by:Zachary Bernal, Ph.D., FACMGDirector, Molecular Eatntpiu[address] [place] [id number] at: - [facility] [id number] [place], [place] [id number] Director: Derick Ma [facility], Phone: [phone] Prothrombin gene [id number] mut ation detectionon 12-17-2023 F2 gene targeted mutation analysis [employer] Nom (Bld/Tiss) Comment . [facility] Comment on above: Result: c.*97G>A - N [...] in theF2 gene and a c.1601G>A (p. Uqq017Yuj) variant in the F5 gene(commonly referred to as Factor V Leiden) have an approximately 20-fold increased risk for venous thromboembolism. Risks are likely karol even higher in more complex genotype combinations involving theF2 c.*97G>A variant and Factor V Leiden (PMID: 14792647). Additionalrisk factors include but are not limited [...] for health care providers to discussresults at [phone] ([phone]).Test Details:Variant analyzed: c.*97G>A, previously referred to as [id number]/Limitations:DNA analysis of the F2 gene (NM_000506.5) was [...] was developed and its performance characteristics determinedby [facility]. It has not been cleared or approved by the Food and DrugAdministration.References:Karma S, Kvng JOINER, Lul R, Dale WW, Igor JH; ACMG ProfessionalPractice and Guidelines Committee. Addendum: [employer] [employer] consensus statement on factor V Leiden mutationtesting. Sayda Med. 2020Jan 05. doi: 10.1038/j04322-437-98990-i.PMID: 63542530.Amber KO. Prothrombin Thrombophilia. 2005May 27[Updated 2020Dec 07]. In: Antoni MP, Kristin HH, Chico RA, et al.,editors. Alpesh(R) [Internet]. [place] ([place]): [facility]; 3455-1919. Available from:https://www.ncbi.nlm.nih.gov/books/CNA1968/Melo S, Kvng JOINER, Esteban X, Janusz B, Grace EB, Genesis P, Tremaine CS;[employer] Laboratory Automotive Sales Specialist Committee. Venous thromboembolismlaboratory testing (factor V Leiden and factor II c.*97G>A),2018 update: a technical standard of the [employer] [employer] and [employer] (ACMG). Sayda Med. 2018 Oct;20(12):8533-4378.doi: 10.1038/[id number]-s. Epub 2017Aug 07. PMID: 11193313. US THYROIDon 01-26-2023 US THYROID EXAMINATION: US [...] left thyroid TR 3 nodule TI-RADS: The [employer] [employer] TI-RADS committee's white paper recommendations for thyroid lesions classified as TR3 (mildly suspicious) are listed below: > 1.5 cm. Follow-up ultrasound in 1, 3, and 5 years. > 2.5 cm. FNA. J. Am Ava Radiol 2017;14:587-595. Electronically authenticated by: HERMANN GUZMAN Date: 2023-01-26 09:07 Normal [facility] CBC AUTO DIFFon 11-16-2022 BASO # 0.0 103/ul Normal 0.0-0.1 [facility] Comment on above: Performed By: #### C BC #### [facility] [address] [place] [address] Dr. Chanel Manriquez Basophils/100 WBC (Bld) 0.6 % Normal 0.2-2.0 [facility] Comment on above: Performed By: #### C BC #### [facility] [address] [place] [address] Dr. Chanel Manriquez EO # 0.3 103/ul Normal 0.0-0.7 [facility] Comment on above: Performed By: #### C BC #### [facility] [address] [place] [address] Dr. Chanel Manriquez Eosinophils/100 WBC (Bld) 4.9 % Normal 0.9-7.0 [facility] Comment on above: Performed By: #### C BC #### [facility] [address] [place] [address] Dr. Chanel Manriquez Erythrocyte distribution width (RBC) [Ratio] 13.1 % Normal 11.0-15.0 [facility] Comment on above: Performed By: #### C BC #### [facility] [address] [place] [address] Dr. Chanel Manriquez Hematocrit (Bld) [Volume fraction] 39.7 % Normal 36.0-48.0 [facility] Comment on above: Performed By: #### C BC #### [facility] [address] [place] [address] Dr. Chanel Manriquez Hemoglobin (Bld) [Mass/Vol] 13.5 g/dL Normal 12.0-16.0 [facility] Comment on above: Performed By: #### C BC #### [facility] [address] [place] [address] Dr. Chanel Manriquez IG # 0.02 10e3/ul Normal 0.00-0.03 [facility] Comment on above: Performed By: #### C BC #### [facility] [address] [place] [address] Dr. Chanel Manriquez IG % 0.3 % Normal 0.0-0.5 [facility] Comment on above: Performed By: #### C BC #### [facility] [address] [place] [address] Dr. Chanel Manriquez LYMPH # 1.2 103/ul Normal 1.2-3.8 [facility] Comment on above: Performed By: #### C BC #### [facility] [address] [place] [address] Dr. Chanel Manriquez Lymphocytes/100 WBC (Bld) 18.5 % Critically low 20.5-60.0 [facility] Comment on above: Performed By: #### C BC #### [facility] [address] [place] [address] Dr. Chanel Manriquez MANUAL DIFF REQ NO Normal [facility] Comment on above: Performed By: #### C BC #### [facility] [address] [place] [address] Dr. Chanel Manriquez MCH (RBC) [Entitic mass] 28.9 pg Normal 26.7-34.0 [facility] Comment on above: Performed By: #### C BC #### [facility] [address] [place] [address] Dr. Chanel Manriquez MCHC (RBC) [Mass/Vol] 34.0 g/dL Normal 29.9-35.2 [facility] Comment on above: Performed By: #### C BC #### [facility] [address] [place] [address] Dr. Chanel Manriquez MCV (RBC) [Entitic vol] 85.0 fL Normal 81.0-99.0 [facility] Comment on above: Performed By: #### C BC #### [facility] [address] [place] [address] Dr. Chanel Manriquez MONO # 0.7 103/ul Normal 0.3-0.8 [facility] Comment on above: Performed By: #### C BC #### [facility] [address] [place] [address] Dr. Chanel Manriquez Monocytes/100 WBC (Bld) 10.7 % Normal 1.7-12.0 [facility] Comment on above: Performed By: #### C BC #### [facility] [address] [place] [address] Dr. Chanel Manriquez NEUT # 4.1 103/ul Normal 1.4-6.5 [facility] Comment on above: Performed By: #### C BC #### [facility] [address] [place] [address] Dr. Chanel Manriquez Neutrophils/100 WBC (Bld) 65.0 % Normal 43.0-75.0 [facility] Comment on above: Performed By: #### C BC #### [facility] [address] [place] [address] Dr. Chanel Manriquez Platelet mean volume (Bld) [Entitic vol] 9.3 fL Critically low 9.5-13.5 [facility] Comment on above: Performed By: #### C BC #### [facility] [address] [place] [address] Dr. Chanel Manriquez PLT 271 103/ul Normal 150-450 [facility] Comment on above: Performed By: #### C BC #### [facility] [address] [place] [address] Dr. Chanel Manriquez RBC 4.67 106/ul Normal 4.20-5.40 [facility] Comment on above: Performed By: #### C BC #### [facility] [address] [place] [address] Dr. Chanel Manriquez WBC 6.3 103/ul Normal 4.0-11.0 [facility] Comment on above: Performed By: #### C BC #### [facility] [address] [place] [address] Dr. Chanel Manriquez GLYCOHEMOGLOBIN A1Con 2022 ADA RECOMMENDATION SEE BELOW Normal [facility] Comment on above: Result Comment: ADA RECOMMENDED LIMIT 4.0 - 6.0 ADA THERAPEUTIC TARGET < 7.0 ACTION SUGGESTED > 7.0 Performed By: #### A 1C #### [facility] [address] [place] [address] Dr. Chanel Manriquez Glucose [Mass/Vol] 108 mg/dL Normal [facility] Comment on above: Performed By: #### A 1C #### [facility] [address] [place] [address] Dr. Chanel Manriquez HbA1c (Bld) [Mass fraction] 5.4 % Normal 4.5-6.2 [facility] Comment on above: Performed By: #### A 1C #### [facility] [address] [place] [address] Dr. Chanel Manriquez LIPID PROFILEon 11-16-2022 CHOL-HDL RATIO NORM SEE BELOW Normal [facility] Comment on above: Result Comment: 3.3 - 4.4 LOW RISK 4.4 - 7.1 AVERAGE RISK 7.1 - 11.0 MODERATE RISK >11.0 HIGH RISK Performed By: #### T SH, CMP, LIPID #### [facility] [address] [place] [address] Dr. Chanel Manriquez Cholesterol [Mass/Vol] 135 mg/dL Normal <=200 [facility] Comment on above: Performed By: #### T SH, CMP, LIPID #### [facility] [address] [place] [address] Dr. Chanel Manriquez Cholesterol in HDL [Mass/Vol] 40 mg/dL Normal 40-60 [facility] Comment on above: Performed By: #### T SH, CMP, LIPID #### [facility] [address] [place] [address] Dr. Chanel Manriquez Cholesterol in LDL [Mass/Vol] 80.4 mg/dL Normal [facility] Comment on above: Performed By: #### T SH, CMP, LIPID #### [facility] [address] [address] [address] Chanel Manriquez Cholesterol.total/ Cholesterol in HDL [Mass ratio] 3.4 {ratio} Normal [facility] Comment on above: Performed By: #### T SH, CMP, LIPID #### [facility] [address] [address] [address] Chanel Manriquez HDL NORMAL > or = 60 mg/dl - LO W CARDIOVASCULAR RISK <40 mg/dl - HIGH CARDIOVASCULAR RISK Normal [facility] Comment on above: Performed By: #### T SH, CMP, LIPID #### [facility] [address] [address] [address] Chanel Manriquez LDL CALC NORMAL SEE BELOW Normal [facility] Comment on above: Result Comment: <100 mg/dl OPTIMAL 100 - 129 mg/dl NEAR OR ABOVE OPTIMAL 130 - 159 mg/dl BORDERLINE HIGH 160 - 189 mg/dl HIGH >190 mg/dl VERY HIGH Performed By: #### T CAROL, CMP, LIPID #### [facility] [address] [place] [address] Dr. Chanel Manriquez Triglyceride [Mass/Vol] 73 mg/dL Normal <=150 [facility] Comment on above: Performed By: #### T SH, CMP, LIPID #### [facility] [address] [place] [address] Dr. Chanel Manriquez VLDL CALC 14.6 mg/dL Normal [facility] Comment on above: Performed By: #### T CAROL, CMP, LIPID #### [facility] [address] [place] [address] Dr. Chanel Manriquez PROF 14(COMP METB)on 023 Albumin [Mass/Vol] 3.4 g/dL Normal 3.4-5.0 [facility] Comment on above: Performed By: #### T SH, CMP, LIPID #### [facility] [address] [place] [address] Dr. Chanel Manriquez Albumin/Globulin [Mass ratio] 0.9 {ratio} Normal [facility] Comment on above: Performed By: #### T SH, CMP, LIPID #### [facility] [address] [address] [address] Chanel Manriquez ALP [Catalytic activity/Vol] 62 U/L Normal 46-116 [facility] Comment on above: Performed By: #### T SH, CMP, LIPID #### [facility] [address] [address] [address] Chanel Manriquez ALT [Catalytic activity/Vol] 17 U/L Normal 14-59 [facility] Comment on above: Performed By: #### T SH, CMP, LIPID #### [facility] [address] [address] [address] Chanel Manriquez Anion gap [Moles/Vol] 10.5 mmol/L Normal [facility] Comment on above: Performed By: #### T SH, CMP, LIPID #### [facility] [address] [place] [address] Dr. Chanel Manriquez AST [Catalytic activity/Vol] 15 U/L Normal 15-37 [facility] Comment on above: Performed By: #### T SH, CMP, LIPID #### [facility] [address] [address] [address] Chanel Manriquez Bilirubin [Mass/Vol] 0.5 mg/dL Normal 0.2-1.0 [facility] Comment on above: Performed By: #### T SH, CMP, LIPID #### [facility] [address] [address] [address] Chanel Manriquez Calcium [Mass/Vol] 8.7 mg/dL Normal 8.5-10.1 [facility] Comment on above: Performed By: #### T SH, CMP, LIPID #### [facility] [address] [address] [address] Chanel Manriquez Chloride [Moles/Vol] 104 mmol/L Normal 98-107 [facility] Comment on above: Performed By: #### T SH, CMP, LIPID #### [facility] [address] [address] [address] Chanel Manriquez CO2 [Moles/Vol] 28.4 mmol/L Normal 21.0-32.0 [facility] Comment on above: Performed By: #### T SH, CMP, LIPID #### [facility] [address] [address] [address] Chanel Manriquez Creatinine [Mass/Vol] 0.79 mg/dL Normal 0.55-1.02 [facility] Comment on above: Performed By: #### T SH, CMP, LIPID #### [facility] [address] [address] [address] Chanel Manriquez EGFR-AF TONGAN >60 Normal >=60 [facility] Comment on above: Performed By: #### T SH, CMP, LIPID #### [facility] [address] [address] [address] Chanel Manriquez EGFR-NON AF TONGAN >60 Normal >=60 [facility] Comment on above: Performed By: #### T SH, CMP, LIPID #### [facility] [address] [address] [address] Chanel Manriquez Globulin (S) [Mass/Vol] 3.9 g/dL Normal [facility] Comment on above: Performed By: #### T SH, CMP, LIPID #### [facility] [address] [address] [address] Chanel Manriquez Glucose [Mass/Vol] 101 mg/dL Normal 74-106 [facility] Comment on above: Performed By: #### T SH, CMP, LIPID #### [facility] [address] [address] [address] Chanel Manriquez Potassium [Moles/Vol] 3.9 mmol/L Normal 3.5-5.1 [facility] Comment on above: Performed By: #### T SH, CMP, LIPID #### [facility] [address] [address] [address] Chanel Manriquez Protein [Mass/Vol] 7.3 g/dL Normal 6.4-8.2 [facility] Comment on above: Performed By: #### T SH, CMP, LIPID #### [facility] [address] [address] [address] Chanel Manriquez Sodium [Moles/Vol] 139 mmol/L Normal 136-145 [facility] Comment on above: Performed By: #### T SH, CMP, LIPID #### [facility] [address] [place], [place] [address] Dr. Chanel Manriquez Urea nitrogen [Mass/Vol] 13.0 mg/dL Normal 7.0-18.0 [facility] Comment on above: Performed By: #### T SH, CMP, LIPID #### [facility] [address] [place], [place] [address] Dr. Chanel Manriquez Urea nitrogen/Creatinin e [Mass ratio] 16.5 mg/mg Normal [facility] Comment on above: Performed By: #### T SH, CMP, LIPID #### [facility] [address] [address] [address] Chanel Manriquez TSHon 11-16-2022 TSH 3.672 uIU/mL Normal 0.358-3.740 [facility] Comment on above: Performed By: #### T SH, CMP, LIPID #### [facility] [address] [address] [address] Chanel Manriquez MG MAMM SCREEN 3D MELISSA CADon 06-19-2022 MG MAMM SCREEN 3D MELISSA CAD Patient: MILDRED REED Exam Date: 06/19/2022 : 1980 Gender:F Ordering : DR CESAR LUTZ . Admission #: [id number] Family : DR JULIA MITCHELL M.D. Order #: [id number] CLICK HERE TO VIEW EXAM RADIOLOGY REPORT [...] lung cancer at age 68. LOCATION: [facility] BREAST COMPOSITION: Scattered areas fibroglandular density. [...] M.D. on 06/20/2022 at 14:00 Approved by: Clifotn Huntley M.D. on 06/20/2022 at 14:07 Normal [facility] PAP ACOG PANEL 2: 30 to 65on 04-16-2022 . . Normal [facility] Comment on above: Result Comment: Perf ormed at: WB Performed By: #### [id number] #### [facility] [address] [address] [address] Chanel Manriquez Age Gdln ACOG Testing 30-65 [facility] Comment on above: Performed By: #### 4 [id number] #### [facility] [address] [address] [address] Chanel Manriquez DIAGNOSIS: Comment Normal [facility] Comment on above: Result Comment: NEGA TIVE FOR INTRAEPITHELIAL LESION OR MALIGNANCY. Performed at: WB Performed By: #### [id number] #### [facility] [address] [address] [address] Chanel Manriquez HPV Aptima Negative Normal Negative [facility] Comment on above: Result Comment: This nucleic acid amplification test detects fourteen high-risk HPV types (16,18,31,33,35,39,45,51,52,56,58,59,66,68) without differentiation. Performed at: =G Performed By: #### 4 [id number] #### [facility] [address] [address] [address] Chanel Manriquez Methodology: Comment Normal [facility] Comment on above: Result Comment: This liquid based ThinPrep(R) pap test was screened with the use of an image guided system. Performed at: WB Performed By: #### 4 [id number] #### [facility] [address] [address] [address] Chanel Manriquez Note: Comment Normal [facility] Comment on above: Result Comment: The Pap smear is a screening test designed to aid in the detection of premalignant and malignant conditions of the uterine cervix. It is not a diagnostic procedure and should not be used as the sole means of detecting cervical cancer. Both false-positive and false-negative reports do occur. . Performed at: WB Performed By: #### [id number] #### [facility] [address] [place], [place] [address] Dr. Chanel Manriquez Performed by: Comment Normal [facility] Comment on above: Result Comment: Jasbir Young, Marking Devices Assembler (ASCP) Performed at: WB Performed By: #### [id number] #### [facility] [address] [address] [address] Chanel Manriquez Specimen adequacy: Comment Normal [facility] Comment on above: Result Comment: Sati sfactory for evaluation. Endocervical and/or squamous metaplastic cells (endocervical component) are present. Performed at: WB Performed By: #### 4 [id number] #### [facility] [address] [address] [address] Chanel Manriquez US THYROIDon 02-09-2022 US [...] one year is recommended. TR 4: The [employer] TI-RADS committee's white paper recommendations for thyroid lesions classified as TR4 (moderately suspicious) are listed below: > 1.0 cm. Follow-up ultrasound in 1, 2, 3, and 5 years. > 1.5 cm. FNA. J. Am Ava Radiol 2017;14:587-595. Electronically authenticated by: CLIFTON HUNTLEY Date: 2022-02-09 10:40 Normal [facility] SURGICAL PATHOLOGYon 019 SURGICAL PATHOLOGY Specimen #: [id number] Submitting Physician: GIDEON PRYOR MD FINAL DIAGNOSIS Outside slides [id number], [id number], B1; 04/06/2019; [facility] [place]: 1. Right thyroid and partial left [...] Dr. Vicki Badillo, a colleague on the [place] [facility] head and neck pathology service was consulted, and she agrees with the diagnoses. If you would like to discuss this case, please contact my office at [phone]. MAXIM/kaley 04/12/19 Efraín Wayne M.D. (Electronic Signature) SPECIMEN SUBMITTED A: 17 SLIDES ([id number]) CLINICAL DATA None provided. SLIDE/BLOCK DESCRIPTION A. 17 SLIDES ([id number]): Date of Report: 04/13/2019 Date of Procedure: 04/09/2019 Date of Receipt: 04/09/2019 Submitted by: GIDEON PRYOR MD Location: Diagnostic interpretation performed at [place] [facility], [address] [place] [address]. CLIA Number: [id number] Normal [facility] Comment on above: Performed By: #### S #### See report for performing lab information. Vital Signs Date Time Vital Sign Value Performing Clinician Facility 06-30-2024 14:22-0400 Body height 154.9 cm Patrizia Fernández MD Work Phone: [facility] 06-30-2024 14:22-0400 Body mass index (BMI) [Ratio] 35.9 kg/m2 Patrizia Fernández MD Work Phone: [facility] 06-30-2024 14:22-0400 Body weight 86.18 kg Patrizia Fernández MD Work Phone: [facility] 06-30-2024 14:22-0400 Diastolic blood pressure 81 mm[Hg] Patrizia Fernández MD Work Phone: [facility] 06-30-2024 14:22-0400 Systolic blood pressure 128 mm[Hg] Patrizia Fernández MD Work Phone: [facility] 12-08-2023 15:00-0500 Body height 154.94 cm Julia Mitchell Other [facility] 12-08-2023 15:00-0500 Body mass index (BMI) [Ratio] 35.33 kg/m2 Julia Mitchell Other [facility] 12-08-2023 15:00-0500 Body weight 84.82 kg Julia Mitchell Other [facility] 12-08-2023 15:00-0500 Diastolic blood pressure 81 mm[Hg] Julia Mitchell Other [facility] 12-08-2023 15:00-0500 Systolic blood pressure 121 mm[Hg] Julia Mitchell Other [facility] 02-04-2023 11:00-0400 Body height 154.94 cm Julia Mitchell Other [facility] 02-04-2023 11:00-0400 Body mass index (BMI) [Ratio] 35.9 kg/m2 Julia Mitchell Other [facility] 02-04-2023 11:00-0400 Body weight 86.18 kg Julia Mitchell Other [facility] 02-04-2023 11:00-0400 Diastolic blood pressure 82 mm[Hg] Julia Mitchell Other [facility] 02-04-2023 11:00-0400 SaO2% (BldA) [Mass fraction] 97 % Julia Mitchell Other [facility] 02-04-2023 11:00-0400 Systolic blood pressure 122 mm[Hg] Julia Mitchell Other [facility] 11-21-2022 16:00-0500 Body height 154.94 cm Julia Mitchell Other [facility] 11-21-2022 16:00-0500 Body mass index (BMI) [Ratio] 36.46 kg/m2 Julia Mitchell Other [facility] 11-21-2022 16:00-0500 Body weight 87.54 kg Julia Mitchell Other [facility] Other 11-21-2022 16:00-0500 Diastolic blood pressure 88 mm[Hg] Julia Paula Other [facility] Other 11-21-2022 16:00-0500 SaO2% (BldA) [Mass fraction] 97 % Julia Paula Other [facility] Other 11-21-2022 16:00-0500 Systolic blood pressure 132 mm[Hg] Julia Mitchell Other [facility] Other Encounters Encounter Date Encounter Type Care Provider Facility Start: 06-30-2024 End: 06-30-2024 Office outpatient visit 15 minutes Patrizia Fernández MD Work Phone: [facility] Comment on above: Malignant tumor of t hyroid gland (CMS/HCC) (Primary Dx) Start: 06-30-2024 End: 06-30-2024 ambulatory PATRIZIA H TIMMIS Not Available Start: 06-30-2024 End: 06-30-2024 Bamboo flowslela Fernández MD Work Phone: [facility] Start: 06-30-2024 End: 06-30-2024 Berlin Fernández MD Work Phone: [facility] Start: 03-23-2024 End: 03-23-2024 ambulatory PATRIZIA H TIMMIS Not Available Start: 03-01-2024 End: 03-01-2024 ambulatory Clifton Huntley Facility:[facility] Start: 03-01-2024 End: 03-01-2024 ambulatory MD Clifton Huntley Work Phone: [facility] Work Phone: Start: 03-01-2024 End: 03-01-2024 Departed Referred MD Clifton Huntley Work Phone: [facility] Start: 02-11-2024 End: 02-11-2024 ambulatory PATRIZIA FERNÁNDEZ Not Available Start: 02-07-2024 Non-patient / Non-visit MD Galdamez Alegríasandraer Work Phone: [facility] Work Phone: Start: 01-22-2024 Non-patient / Non-visit MD Galdamez Alegríarenuka Work Phone: [facility] Work Phone: Start: 12-17-2023 Non-patient / Non-visit MD Galdamez [employer] Work Phone: [facility] Work Phone: Start: 12-08-2023 End: 12-08-2023 ambulatory Julia Mitchell Other [facility] Other Start: 12-08-2023 Encounter for genera l adult medical examination without abnormal findings Julia Mitchell [facility] Start: 12-08-2023 Periodic preventive med est patient 40-64yrs Julia Mitchell [facility] Start: 07-02-2023 End: 07-02-2023 ambulatory Julia Mitchell Other [facility] Other Start: 07-02-2023 Telephone encounter Julia Mitchell [facility] Start: 02-04-2023 End: 02-04-2023 ambulatory Julia Mitchell Other [facility] Other Start: 02-04-2023 Office outpatient vi sit 15 minutes Julia Mitchell [facility] Start: 01-31-2023 End: 01-31-2023 ambulatory Julia Mitchell Other [facility] Other Start: 01-31-2023 Telephone encounter Julia Mitchell [facility] Start: 01-25-2023 End: 01-26-[address] JULIA MITCHELL Facility:[facility] Start: 01-15-[address] JULIA MITCHELL Facil ity:[facility] Start: 11-22-2022 Encounter for genera l adult medical examination without abnormal findings DR JULIA MITCHELL [facility] Start: 11-21-2022 End: 11-21-2022 ambulatory Julia Mitchell Other [facility] Other Start: 11-21-2022 Encounter for genera l adult medical examination without abnormal findings Julia Mitchell [facility] Start: 11-21-2022 Periodic preventive med est patient 40-64yrs Julia Mitchell [facility] Start: 11-16-2022 End: 11-17-[address] JULIA MITCHELL Facility:[facility] Start: 11-16-2022 End: 11-17-2022 Encounter for general adult medical examination without abnormal findings DR JULIA MITCHELL Facility:[facility] Start: 11-13-2022 End: 11-13-2022 ambulatory Julia Mitchell Other [facility] Other Start: 11-13-2022 Encounter for genera l adult medical examination without abnormal findings Julia Mitchell [facility] Start: 11-13-2022 Telephone encounter Julia Mitchell [facility] Start: 08-13-2022 End: 11-22-[address] JULIA MITCHELL Facility:[facility] Start: 06-19-2022 End: 06-20-[address] JULIA MITCHELL Facility:[facility] Start: 04-10-2022 End: 04-10-[address] CESAR LUTZ . Facility:[facility] Start: 04-10-2022 Gynecological examin ation normal uJlia Mitchell Other [facility] Other Start: 02-08-2022 End: 02-09-[address] PATRIZIA FERNÁNDEZ Facility:[facility] Start: 03-13-2021 Adult health examination Lou Mitchell Other [facility] Other Procedures Date Procedure Procedure Detail Performing Clinician Start: 04-10-2022 Screening for malign ant neoplasm of breast Julia Mitchell Other Start: 12-28-2021 Removal of intrauter ine device Julia Mitchell Other Start: 02-15-2019 General examination of patient Julia Mitchell Other Contraception care education Julia Mitchell Other Insertion of intraut erine contraceptive device Julia Mitchell Other Screening for malign ant neoplasm of skin Julia Mitchell Other Plan of Treatment Date Care Activity Detail Author Start: 07-04-2024 Influenza vaccination Influenza Vacc ine (#1) [facility] Start: 06-30-2024 End: 06-30-2024 Patient encounter procedure 06/30/2024 2:30 PM EDT Office Visit [facility] [address] [facility] [address] [place] [id number] Patrizia Fernández MD [address] [facility] [address] [place] [address] Arrived [facility] Comment on above: Arrived Start: 2018 Screening for malign ant neoplasm of breast Mammogram [facility] Start: 2008 Screening for malign ant neoplasm of cervix [facility] Start: 1999 Screening for malign ant neoplasm of cervix Pap Smear [facility] Start: 1980 Screening for malign ant neoplasm of colon [facility] Immunizations Immunization Date Immunization Notes Care Provider Fa cility 08-06-2021 influenza virus vacc ine, unspecified formulation Patrizia Fernández MD Work Phone: [facility] Payers Date Payer Category Payer Unknown BCBS BCBS [id number] 2022-Present [phone] [address] [place] [address] [id number] 2022 Blue Cross Blue Shield [id number] 2019 Unknown [id number] 1980 Unknown [id number] 3 1980 Unknown [id number] [id number] 3 1978 Unknown [id number] [id number] 3 1978 Unknown [id number] 2.16.840.1.616525.3.579.2.59 3 1978 Unknown [id number] [id number] 3 1978 Unknown [id number] 2.16.840.1.859261.3.579.2.59 3 1978 Unknown [id number] [id number] 3 1978 Unknown [id number] 2.16.840.1.130986.3.579.2.12 59 1980 Unknown [id number] [id number] 59 1978 Unknown [id number] [id number] 59 1959 Self-pay Medicaid [facility] [id number] Unknown [id number] Unknown [id number] 1 Social History Date Type Detail Facility Start: 03-23-2024 End: 06-30-2024 Sex Assigned At [facility] Other Start: 02-04-2023 End: 02-11-2024 Tobacco smoking status NHIS Never smoked tobacco (finding) [facility] Start: 1980 Sex Assigned At Female F [facility] Start: 02-11-2024 Tobacco use and exposure Smokeless tobacco non-user [facility] Start: 03-23-2024 End: 06-30-2024 Alcoholic beverage intake Ex-drinker (finding) [facility] Start: 03-23-2024 End: 06-30-2024 History of Social function [facility] Start: 1980 Sex assigned at Not on file N [facility] Clinical Notes 11-13-2022 to 06-30-2024 Patrizia Fernández MD - 06/30/2024 2:30 PM EDT Note Date & Type Note Facility 06-30-2024 History of Presen t illness Narrative Subjective Patient ID: Mildred Reed is a 43 y.o. female who presents for Thyroid Nodule (6 mo check with ultrasound [facility] 06/21/24) US shows a 51m81m59xw left nodule compared to 51y71m23kj in January Family History Problem Relation Name Age of Onset Thyroid disease Mother Hypertension Father Diabetes Father Active Ambulatory Problems Diagnosis Date Noted Acquired hypothyroidism (CMS/HCC) 02/11/2024 Carpal tunnel syndrome of left wrist 02/11/2024 Carpal tunnel syndrome of right wrist 02/11/2024 Chronic reactive otitis externa of both ears 02/11/2024 Franco's thyroiditis (CMS/HCC) 02/11/2024 Malignant tumor of thyroid gland (CMS/HCC) 02/11/2024 Primary hypertension (CMS/HCC) 02/11/2024 Thyrotoxicosis (CMS/HCC) 09/04/2010 Resolved Ambulatory Problems Diagnosis Date Noted No Resolved Ambulatory Problems Past Medical History: Diagnosis Date Disease of thyroid gland (CMS/HCC) Hypertension (CMS/HCC) Past Surgical History: Procedure Laterality Date SECTION, CLASSIC 2010, 2014, 2017 THYROIDECTOMY, PARTIAL 04/06/2019 RT zara, partial left thyroidectomy, Casey Allergies Allergen Reactions Bacitracin Other Reaction(s): Unknown Current Outpatient Medications on File Prior to Visit Medication Sig Dispense Refill levothyroxine (Synthroid) 125 MCG tablet Take 1 tablet (125 mcg) by mouth in the morning. Take before meals. 90 tablet 3 metoprolol succinate XL (Toprol-XL) 50 MG 24 hr tablet Take 50 mg by mouth Daily No current facility-administered medications on file prior to visit. Objective Last Recorded Vitals Vitals: 08/28/24 1422 BP: 128/81 ENT Physical Exam Constitutional Appearance: patient appears well-developed, well-nourished and well-groomed, Communication/Voice: communication appropriate for developmental age; vocal quality normal; Assessment/Plan H/O thyroid CA. US shows a very stable solitary left nodule. Repeat US 6 mo documented in this encounter [facility] 12-08-2023 Evaluation note Encounter Date Diagnosis Assessment [...] further guidance if her test is positive. [facility] Other 08-30-2023 Evaluation note* Encounter Date Diagnosis Assessment Notes Treatment Notes Treatment Clinical Notes Jun, Screening mammogram for breast cancer (ICD-10 - Z12.31) [facility] Other 04-04-2023 Evaluation note* Encounter Date Diagnosis Assessment Notes Treatment Notes Treatment Clinical Notes Feb, Hypertension (ICD-10 - I10) Present readings are normal. Continue present med. Discussed decreasing salt and starting exercise to improve BP. Would not add or increase BP med at this time. Pt in agreement. [facility] Other 01-19-2023 Evaluation note* Encounter Date Diagnosis Assessment Notes Treatment Notes Treatment Clinical Notes Nov, Well adult exam (ICD-10 - [...] (ICD-10 - E06.3) Continued followup w ENT [facility] Other 01-11-2023 Evaluation note* Encounter Date Diagnosis Assessment Notes Treatment Notes Treatment Clinical Notes Nov, Wellness examination (ICD-10 - Z00.00) [facility] Other Evaluation noteNo InformationNort [facility] [place] Other Evaluation noteNo assessment information available [facility] Work Phone: Evaluation note* Diagnosis Malignant tumor of thyroid gland (CMS/HCC)- Primary Malignant neoplasm of thyroid gland [facility] - [facility]orted* Type Description Date Medical History MNG Medical History Hshimoto's disease Medical History Hypertension Medical History Hypothyroidism Medical History Anxiety Surgical History C section x2 Surgical History Right Carpal Tunnel Surgical History Thyroidectomy (right) Surgical History Thyroidectomy (piece of left) [facility] Other History general Narrative - Reported* Type Description Date Medical History MNG Medical History Hshimoto's disease Medical History Hypertension Medical History Hypothyroidism Medical History Anxiety Surgical History C section x2 Surgical History Right Carpal Tunnel Surgical History Thyroidectomy (right) Surgical History Thyroidectomy (piece of left) Hospitalization History SEE SURGICAL HX [facility] Other Summary Purpose Family History No Family History Records FoundNo Family History Records FoundNo Family History Records FoundNo Family History Records Found Advance Directives Advance Directive Response Recorded Date/ Time Advance Directives No July 10:57am Additional Source Comments INFORMATION SOURCE (unrecogn ized section and content) DATE CREATED AUTHOR 04/14/2019 [facility] DATE CREATED AUTHOR AUTHOR'S ORGANIZ ATION 02/01/2023 [facility] DATE CREATED AUTHOR AUTHOR'S ORGANIZ ATION 03/05/2024 [facility] DATE CREATED AUTHOR AUTHOR'S ORGANIZ ATION 07/02/2024 [facility] EPIC REASON FOR VISIT (unrecogniz ed section and content) Reason Comments Thyroid Nodule 6 mo check with ultr asound [facility] 06/21/24 Care Teams (unrecognized sec tion and content) [...] March 01, 2024 End: March 01, 2024 Assistant Facility Manager Relationship Specialty Start Date End Date Julia Mitchell MD [address] [place] [address] PCP - General Family Medicine 12/19/23 Assistant Facility Manager Relationship Specialty Start Date End Date Julia Mitchell MD [address] [place] [address] PCP - General Family Medicine 12/19/23 Goals (unrecognized section and content) Goals may [...] BE BASED ON THE PRIMARY CLINICAL RECORDS. [facility]. provides no warranty or guarantee of the accuracy or completeness of information in this document.
== END 2024-12-16 18:21 | disposition home or self-care (01) ==
LOC: US 18:20
PROVIDERS: PCP Family Medicine; Visit Provider Otolaryngology
DX: E04.1 Nontoxic single thyroid nodule (principal)
CPT/HCPCS: 76536

== ENCOUNTER 2025-01-22 07:05 | Outpatient (OUT) | payer BC, SELFPAY ==
--- OUTSIDE RECORDS SUMMARY | 2025-01-22 07:07 | XMS_ITS | CCD ---
Author Organization [facility] CliniSywa Care Team Providers Care Certified Orthoptist Name Role Phone Julia Mitchell Unavailable PAULA, [...] Attending Unavailable MD Clifton Huntley Attending Provider [phone] Clifton Huntley Attending Unavailable Clifton Huntley Admitting Unavailable Mitchell Julia ABBOTT Primary Care Provider [phone] PATRIZIA FERNÁNDEZ Attending Unavailable TIMMISPATRIZIA Attending Unavailable TIMMIS, PATRIZIA Lee Attending Unavailable TIMMIS, PATRIZIA H Attending Unavailable Allergies Allergy Classification Reported Allergen(s) Allergy Type Date of Onset Reaction(s) Facility (1 source) Bacitracin Drug Allergy 9 [facility] Repository (2 sources) patient allergy list reviewed by nurse or physicia Propensity to adverse reactions 9 Comment:Done AB Tasty Other (2 sources) Allergies Reconciled Propensity to adverse reactions Unknown AB Tasty Other (7 sources) Bacitracin Drug Allergy 4 [facility] Work Phone: Medications Current Medications Medication Drug Class(es) Dates Sig (Normalized) Sig (Original) ibuprofen 600 mg oral tablet (1 source) Nonsteroidal Anti-inflammatory Drug Start: 08-14-2017 take 600 mg by mouth every six hours Ibuprofen Active 600 MG PO Every 6 hours 30 7 August 14, 2017 12:00am levothyroxine sodium 0.125 mg oral tablet (12 sources) l-Thyroxine Start: 02-24-2024 End: 02-23-2025 take [...] succinate 50 mg extended release oral tablet (15 sources) beta-Adrenergic Dustin Start: 01-22-2024 take 1 [...] (Normalized) Sig (Original) 21 day ethinyl estradiol 0.424904 mg/hr / etonogestrel 0.005 mg/hr vaginal system (5 sources) Progestin, Estrogen NuvaRing 0.1 2-0.015 MG/24HR [address] for 3 weeks, remove, and replace with a new ring after 7 day break Vaginal Not-Taking Problems Active Problems Problem Classification Problem Date Documented Date Episodic/Chronic Anxiety disorders (8 sources) Anxiety; Translations: [Anxiety disorder, unspecified] Chronic Cancer of thyroid (11 sources) Malignant tumor of thyroid gland; Translations: [...] contraceptive device] Resolved: 04-10-2022 Episodic Essential hypertension (16 sources) Hypertensive disorder; Translations: [Essential (primary) hypertension] Onset: 02-11-2024 Chronic Other ear and sense organ disorders (7 sources) Chronic non-infective otitis externa; Translations: [Other otitis externa, bilateral] Onset: 02-11-2024 02-11-2024 Chronic Other nervous system disorders (7 sources) Carpal tunnel syndrome of left wrist; Translations: [Carpal tunnel syndrome, left upper limb] Onset: 02-11-2024 02-11-2024 Chronic Other nervous system disorders (7 sources) Carpal tunnel syndrome of right wrist; Translations: [Carpal tunnel syndrome, right upper limb] Onset: 02-11-2024 02-11-2024 Chronic Other nutritional; endocrine; and metabolic disorders (8 sources) Obesity; Translations: [Obesity, unspecified] Chronic Other nutritional; endocrine; and metabolic disorders (8 sources) Obese class I; Translations: [Body mass index (BMI) 33.0-33.9, adult] Onset: 01-12-2025 01-12-2025 Chronic Other and delivery including normal (2 [...] Name Value Interpretation Reference Range [place] [address] Ultrasound Report Signed Patient: MILDRED REED MR#: [id number] : 1980 Acct:[id number] Age/Sex: 44 / F ADM Date: 12/16/24 Loc: US Attending Dr: Patrizia Fernández M.D. Ordering Physician: Patrizia Fernández M.D. Date of Service: 12/16/24 Procedure(s): US thyroid Accession Number(s): [id number] cc: Julia Mitchell M.D.; Patrizia Fernández M.D. [place] [address] Patient Name: MILDRED REED MRN: [id number] date: 1980 Sex: F Assigned Patient Location: Current Patient Location: Accession/Order Number: [id number] Exam Date: 12/16/2024 18:30 Report Date: 12/17/2024 07:48 At the request of: PATRIZIA FERNÁNDEZ Procedure: US thyroid EXAMINATION: US thyroid HISTORY: THYROID NODULE E04.1 COMPARISON: Ultrasound thyroid 06/21/2024 FINDINGS: RIGHT LOBE: Prior right side thyroidectomy with small amount of hypoechoic tissue within the thyroid bed, 1.1 x 0.5 x 0.7 cm. Lobe size: N/A LEFT LOBE: Markedly heterogeneous and contains a 1.5 x 1.3 x 1.2 cm TR 3 nodule within inferior pole. Lobe size: 3.7 x 2.1 x 2.0 cm ISTHMUS: Slightly heterogeneous, but normal thickness. Thickness: 2 mm US/US thyroid IMPRESSION: 1. Stable small amount of hypoechoic tissue within the right thyroid bed post thyroidectomy; nonspecific but favoring postsurgical changes or residual thyroid tissue. 2. Stable heterogeneous appearance of left lobe and stable 1.5 cm TR 3 nodule. TR3 (mildly suspicious): > 1.5 cm, follow-up ultrasound in 1, 3, and 5 years. > 2.5 cm, fine needle aspiration. Electronically authenticated by: CLIFTON HUNTLEY Date: 12/17/2024 07:48 Dictated By: Clifton Huntley M.D. Signed By: 12/17/24 0751 DD/ 0748 TD/TT: Concessions Manager: [facility] Radiology, Radiologi MD jayne - 12/17/2024 [place] [address] Ultrasound Report Signed Patient: MILDRED REED MR#: [id number] : 1980 Acct:[id number] Age/Sex: 44 / F ADM Date: 12/16/24 Loc: US Attending Dr: Patrizia Fernández M.D. Ordering Physician: Patrizia Fernández M.D. Date of Service: 12/16/24 Procedure(s): US thyroid Accession Number(s): [id number] cc: Julia Mitchell M.D.; Patrizia Fernández M.D. The [place] [id number] Patient Name: MILDRED REED MRN: [facility]:[id number] date: 1980 Sex: F Assigned Patient Location: US Current Patient Location: Accession/Order Number: [id number] Exam Date: 12/16/2024 18:30 Report Date: 12/17/2024 07:48 At the request of: PATRIZIA FERNÁNDEZ Procedure: US thyroid EXAMINATION: US thyroid HISTORY: THYROID NODULE E04.1 COMPARISON: Ultrasound thyroid 06/21/2024 FINDINGS: RIGHT LOBE: Prior right side thyroidectomy with small amount of hypoechoic tissue within the thyroid bed, 1.1 x 0.5 x 0.7 cm. Lobe size: N/A LEFT LOBE: Markedly heterogeneous and contains a 1.5 x 1.3 x 1.2 cm TR 3 nodule within inferior pole. Lobe size: 3.7 x 2.1 x 2.0 cm ISTHMUS: Slightly heterogeneous, but normal thickness. Thickness: 2 mm US/US thyroid IMPRESSION: 1. Stable small amount of hypoechoic tissue within the right thyroid bed post thyroidectomy; nonspecific but favoring postsurgical changes or residual thyroid tissue. 2. Stable heterogeneous appearance of left lobe and stable 1.5 cm TR 3 nodule. TR3 (mildly suspicious): > 1.5 cm, follow-up ultrasound in 1, 3, and 5 years. > 2.5 cm, fine needle aspiration. Electronically authenticated by: CLIFTON HUNTLEY Date: 12/17/2024 07:48 Dictated By: Clifton Huntley M.D. Signed By: 12/17/24 0751 DD/ 0748 TD/TT: Concessions Manager: [facility] Radiology Study observation (narrative) [facility] US Thyroid glandOrdered By: Radiologist Radiology on 12-17-2024 [facility] Work Phone: Jef 03-01-2024 L Specimen: [id number] Re ceived: 03/03/24 Status: SOUT Req Num: [id number] Spec Type: Cytology Subm Dr: Clifton Huntley MD Tissues: A FNA SLIDES NOPATH (LT THYROID NOD) Procedures: Cyto Int and Re, PAPSTN/5 Age/ Patient Sex Location Account Attending Physician Mildred Reed 43/F [facility] [id number] Clifton Huntley MD SPEC NUM: [id number] RECD: 03/03/24 STATUS: SOUT REQ NUM: [id number] AVA: 03/01/24- SUBM DR: Clifton Huntley MD ENTERED: 03/03/[address]: Felisa Lizama HILARY H MD SPEC TYPE: Cytology DEPT: [facility] ENTERED BY: [id number] RECV BY: [id number] ORDERED: Cyto Int and Re, PAPSTN/5 ORDERED: Cyto Int and Re, PAPSTN/5 Pathological Diagnosis Left inferior thyroid nodule, ultrasound?guided fine-needle aspiration: ? Non?diagnostic ([place] category 1). ? 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 Gross Description Received in Cytolyt labeled with the patient's name, date of and left thyroid nodule, inferior per requisition is < 1 ml colorless clear fixed fluid. 1 Thin Prep slides are prepared. 4 spray fixed smears to be stained pap are additionally received. ([place]/il) CPT Codes 47131 -------- -------- Specimen: [id number] Received: 03/03/24 Status: PRACHI Lacy Num: [id number] Spec Type: Cytology Subm Dr: Clifton Huntley MD Tissues: A FNA SLIDES NOPATH (LT THYROID NOD) Procedures: Cyto Int and Re, PAPSTN/5 -------- Patient: Mildred Reed [id number] (Continued) -------- Signed (signature on file) Hermann Dias MD 03/04/24 0939 Normal [facility] Basophils Auto (Bld) [#/Vol] on 02-07-2024 Basophils (Bld) [#/Vol] 0.0 10 3/uL 0.0-0.1 [facility] Basophils/100 WBC Auto (Bld) on 02-07-2024 Basophils/100 WBC (Bld) 0.6 % 0.2-2.0 [facility] Cholesterol in LDL Calc [Mas s/Vol]on 02-07-2024 Cholesterol in LDL [Mass/Vol] 91.6 mg/dL [facility] Comment on above: <100 mg/dl [id number] 0-129 mg/dl NEAR OR ABOVE [id number] mg/dl BORDERLINE [id number] mg/dl HIGH>190 mg/dl VERY HIGH Cholesterol in VLDL Calc [Ma ss/Vol]on 02-07-2024 Cholesterol in VLDL [Mass/Vol] 19.4 mg/dL [facility] Eosinophils/100 WBC Auto (Bl d)on 02-07-2024 Eosinophils/100 WBC (Bld) 2.7 % 0.9-7.0 [facility] Erythrocyte distribution wid th Auto (RBC) [Ratio]on 02-07-2024 Erythrocyte distribution width (RBC) [Ratio] 12.7 % 11.0-15.0 [facility] Estimated glomerular filtrat ion rate (GFR) non- Americanon 02-07-2024 GFR/1.73 sq M.predicted among non-blacks MDRD (S/P/Bld) [Vol rate/Area] mL/min/{1.73_m2} >=60 [facility] Globulin Calc (S) [Mass/Vol] on 02-07-2024 Globulin (S) [Mass/Vol] 4.1 g/dL [facility] Glucose mean value [Mass/vol ume] in Blood Estimated from glycated hemoglobinon 02-07-2024 Average glucose Estimated from glycated hemoglobin (Bld) [Mass/Vol] 111 mg/dL [facility] Hematocrit Auto (Bld) [Volum e fraction]on 02-07-2024 Hematocrit (Bld) [Volume fraction] 41.4 % 36.0-48.0 [facility] Hemoglobin [Mass/volume] in Bloodon 02-07-2024 Hemoglobin (Bld) [Mass/Vol] 13.6 g/dL 12.0-16.0 [facility] Laboratory - Chemistry and C hemistry - challengeon 02-07-2024 Albumin [Mass/Vol] 3.4 g/dL 3.4-5.0 [facility] ALP [Catalytic activity/Vol] 69 U/L 46-116 [facility] ALT [Catalytic activity/Vol] 29 U/L 14-59 [facility] AST [Catalytic activity/Vol] 16 U/L 15-37 [facility] Bilirubin [Mass/Vol] 0.5 mg/dL 0.2-1.0 [facility] Calcium [Mass/Vol] 8.9 mg/dL 8.5-10.1 [facility] Chloride [Moles/Vol] 104 mmol/L 98-107 [facility] Cholesterol [Mass/Vol] 154 mg/dL <=200 [facility] Cholesterol in HDL [Mass/Vol] 43 mg/dL 40-60 [facility] Comment on above: > or =60 mg/dl - LOW CARDIOVASCULAR RISK<40 mg/dl - HIGH CARDIOVASCULAR RISK CO2 [Moles/Vol] 30.2 mmol/L 21.0-32.0 [facility] Creatinine [Mass/Vol] 0.88 mg/dL 0.55-1.02 [facility] GFR/1.73 sq M.predicted MDRD (S/P/Bld) [Vol rate/Area] mL/min/{1.73_m2} >=60 [facility] Glucose [Mass/Vol] 94 mg/dL 74-106 [facility] Potassium [Moles/Vol] 4.1 mmol/L 3.5-5.1 [facility] Protein [Mass/Vol] 7.5 g/dL 6.4-8.2 [facility] Sodium [Moles/Vol] 139 mmol/L 136-145 [facility] Triglyceride [Mass/Vol] 97 mg/dL <=150 [facility] TSH Qn 1.455 m[IU]/L 0.358-3.740 [facility] Urea nitrogen [Mass/Vol] 13.0 mg/dL 7.0-18.0 [facility] Urea nitrogen/Creatinin e [Mass ratio] 14.8 mg/mg [facility] Laboratory - Hematology and Cell countson 02-07-2024 HbA1c (Bld) [Mass fraction] 5.5 % 4.5-6.2 [facility] Comment on above: ADA RECOMMENDED LIMI T 4.0 - 6.0ADA THERAPEUTIC TARGET < 7.0ACTION SUGGESTED> 7.0 Immature granulocytes/100 WBC (Bld) 0.2 % 0.0-0.5 [facility] Leukocytes [#/volume] correc tiffany for nucleated erythrocytes in Blood by Automated counon 02-07-2024 WBC corrected for nucl RBC Auto (Bld) [#/Vol] 4.8 10 3/uL 4.0-11.0 [facility] Lymphocytes Auto (Bld) [#/Vo l]on 02-07-2024 Lymphocytes (Bld) [#/Vol] 1.4 10 3/uL 1.2-3.8 [facility] Lymphocytes/100 WBC Auto (Bl d)on 02-07-2024 Lymphocytes/100 WBC (Bld) 28.2 % 20.5-60.0 [facility] MCH Auto (RBC) [Entitic mass ]on 02-07-2024 MCH (RBC) [Entitic mass] 29.4 pg 26.7-34.0 [facility] MCHC Auto (RBC) [Mass/Vol]on 02-07-2024 MCHC (RBC) [Mass/Vol] 32.9 g/dL 29.9-35.2 [facility] MCV Auto (RBC) [Entitic vol] on 02-07-2024 MCV (RBC) [Entitic vol] 89.4 fL 81.0-99.0 [facility] Monocytes Auto (Bld) [#/Vol] on 02-07-2024 Monocytes (Bld) [#/Vol] 0.4 10 3/uL 0.3-0.8 [facility] Monocytes/100 WBC Auto (Bld) on 02-07-2024 Monocytes/100 WBC (Bld) 8.5 % 1.7-12.0 [facility] Neutrophils Auto (Bld) [#/Vo l]on 02-07-2024 Neutrophils (Bld) [#/Vol] 2.9 10 3/uL 1.4-6.5 [facility] Neutrophils/100 WBC Auto (Bl d)on 02-07-2024 Neutrophils/100 WBC (Bld) 59.8 % 43.0-75.0 [facility] No Panel Informationon 02-06 Eosinophils # (Auto) 0.1 10 3/uL 0.0-0.7 [facility] Immature Granulocyte # (Auto) 0.01 10 3/uL 0.00-0.03 [facility] Platelet mean volume Auto (B ld) [Entitic vol]on 02-07-2024 Platelet mean volume (Bld) [Entitic vol] 9.7 fL 9.5-13.5 [facility] Platelets Auto (Bld) [#/Vol] on 02-07-2024 Platelets (Bld) [#/Vol] 260 10 3/uL 150-450 [facility] RBC Auto (Bld) [#/Vol]on RBC (Bld) [#/Vol] 4.63 10 6/uL 4.20-5.[address] [facility] Serum or plasma albumin/glob ulin mass ratioon 02-07-2024 Albumin/Globulin [Mass ratio] 0.8 {ratio} [facility] Serum or plasma anion gap de terminationon 02-07-2024 Anion gap [Moles/Vol] 8.9 mmol/L [facility] Serum or plasma total choles terol/high density lipoprotein (HDL) cholesterol mass kenia 02-07-2024 Cholesterol.total/ Cholesterol in HDL [Mass ratio] 3.6 {ratio} [facility] Comment on above: 3.3 - 4.4 LOW RISK4. 4 - 7.1 AVERAGE RISK7.1 - 11.0 MODERATE RISK>11.0 HIGH RISK No Panel Informationon 12-17 Factor II DNA Analysis Comment Comment . [facility] Comment on above: Technical Component performed at [facility] RTPProfessional Component performed by:Zachary Beranl, Ph.D., FACMGDirector, Molecular Ppmkonxz[address] [place] [id number] at: - [facility] [id number] [place], [place] [id number] Director: Derick Ma [facility], Phone: [phone] Prothrombin gene [id number] mut ation detectionon 12-17-2023 F2 gene targeted mutation analysis [employer] Nom (Bld/Tiss) Comment . [facility] Comment on above: Result: c.*97G>A - [...] in theF2 gene and a c.1601G>A (p. Owc646Cca) variant in the F5 gene(commonly referred to as Factor V Leiden) have an approximately 20-fold increased risk for venous thromboembolism. Risks are likely karol even higher in more complex genotype combinations involving theF2 c.*97G>A variant and Factor V Leiden (PMID: 88827165). Additionalrisk factors include but are not limited [...] for health care providers to discussresults at [phone] ([phone]).Test Details:Variant analyzed: c.*97G>A, previously referred to as [id number]/Limitations:DNA analysis of the F2 gene (NM_000506.5) was [...] was developed and its performance characteristics determinedby [employer]. It has not been cleared or approved by the Food and DrugAdministration.References:Karma S, Kvng JOINER, Lul R, Dale WW, Igor VELÁSQUEZ; [facility] ProfessionalPractice and Guidelines Committee. Addendum: [employer] consensus statement on factor V Leiden mutationtesting. Sayda Med. 2020Jan 05. doi: 10.1038/j53000-423-78418-h.PMID: 06333354.Amber KO. Prothrombin Thrombophilia. 2005May 27[Updated 2020Dec 07]. In: Antoni MP, Kristin HH, Chico RA, et al.,editors. Alpesh(R) [Internet]. [place] ([place]): [facility]; 1492-4258. Available from:https://www.ncbi.nlm.nih.gov/books/OYI6109/Melo De León, Kvng JOINER, Esteban X, Janusz B, Grace EB, Genesis P, Tremaine CS;[facility] Laboratory Survey Interviewer Committee. Venous thromboembolismlaboratory testing (factor V Leiden and factor II c.*97G>A),2018 update: a technical standard of the [employer] and [employer] (ACMG). Sayda Med. 2017;20(12):9313-2994.doi: 10.1038/c40842-060-2934-t. Epub 2017Aug 07. PMID: 74860066. US THYROIDon 01-26-2023 US THYROID EXAMINATION: US [...] left thyroid TR 3 nodule TI-RADS: The [employer] TI-RADS committee's white paper recommendations for thyroid lesions classified as TR3 (mildly suspicious) are listed below: > 1.5 cm. Follow-up ultrasound in 1, 3, and 5 years. > 2.5 cm. FNA. J. Am Ava Radiol 2017;14:587-595. Electronically authenticated by: HERMANN GUZMAN Date: 2023-01-26 09:07 Normal [facility] CBC AUTO DIFFon 11-16-2022 BASO # 0.0 103/ul Normal 0.0-0.1 [facility] Comment on above: Performed By: #### C BC #### [facility] [address] [place] [address] Dr. Chanel Manriquez Basophils/100 WBC (Bld) 0.6 % Normal 0.2-2.0 [facility] Comment on above: Performed By: #### C BC #### [facility] [address] [place] [address] [address] Chanel Manriquez EO # 0.3 103/ul Normal 0.0-0.7 [facility] Comment on above: Performed By: #### C BC #### [facility] [address] [place] [address] Dr. Chanel Manriquez Eosinophils/100 WBC (Bld) 4.9 % Normal 0.9-7.0 [facility] Comment on above: Performed By: #### C BC #### [facility] [address] [place] [address] Dr. Chanel Manriquez Erythrocyte distribution width (RBC) [Ratio] 13.1 % Normal 11.0-15.0 [facility] Comment on above: Performed By: #### C BC #### [facility] [address] [place] [address] Dr. Chanel Manriquez Hematocrit (Bld) [Volume fraction] 39.7 % Normal 36.0-48.0 [facility] Comment on above: Performed By: #### C BC #### [facility] [address] [place] [address] Dr. Chanel Manriquez Hemoglobin (Bld) [Mass/Vol] 13.5 g/dL Normal 12.0-16.0 [facility] Comment on above: Performed By: #### C BC #### [facility] [address] [place] [address] Dr. Chanel Manriquez IG # 0.02 10e3/ul Normal 0.00-0.03 [facility] Comment on above: Performed By: #### C BC #### [facility] [address] [place] [address] Dr. Chanel Manriquez IG % 0.3 % Normal 0.0-0.5 [facility] Comment on above: Performed By: #### C BC #### [facility] [address] [place] [address] Dr. Chanel Manriquez LYMPH # 1.2 103/ul Normal 1.2-3.8 [facility] Comment on above: Performed By: #### C BC #### [facility] [address] [place] [address] Dr. Chanel Manriquez Lymphocytes/100 WBC (Bld) 18.5 % Critically low 20.5-60.0 [facility] Comment on above: Performed By: #### C BC #### [facility] [address] [place] [address] Dr. Chanel Manriquez MANUAL DIFF REQ NO Normal [facility] Comment on above: Performed By: #### C BC #### [facility] [address] [place] [address] [address] Chanel Manriquez MCH (RBC) [Entitic mass] 28.9 pg Normal 26.7-34.0 [facility] Comment on above: Performed By: #### C BC #### [facility] [address] [place] [address] Dr. Chanel Manriquez MCHC (RBC) [Mass/Vol] 34.0 g/dL Normal 29.9-35.2 [facility] Comment on above: Performed By: #### C BC #### [facility] [address] [place] [address] Dr. Chanel Manriquez MCV (RBC) [Entitic vol] 85.0 fL Normal 81.0-99.0 [facility] Comment on above: Performed By: #### C BC #### [facility] [address] [place] [address] Dr. Chanel Manriquez MONO # 0.7 103/ul Normal 0.3-0.8 [facility] Comment on above: Performed By: #### C BC #### [facility] [address] [place] [address] Dr. Chanel Manriquez Monocytes/100 WBC (Bld) 10.7 % Normal 1.7-12.0 [facility] Comment on above: Performed By: #### C BC #### [facility] [address] [place] [address] Dr. Chanel Manriquez NEUT # 4.1 103/ul Normal 1.4-6.5 [facility] Comment on above: Performed By: #### C BC #### [facility] [address] [place] [address] Dr. Chanel Manriquez Neutrophils/100 WBC (Bld) 65.0 % Normal 43.0-75.0 [facility] Comment on above: Performed By: #### C BC #### [facility] [address] [place] [address] Dr. Chanel Manriquez Platelet mean volume (Bld) [Entitic vol] 9.3 fL Critically low 9.5-13.5 [facility] Comment on above: Performed By: #### C BC #### [facility] [address] [place] [address] [address] Chanel Manriquez PLT 271 103/ul Normal 150-450 [facility] Comment on above: Performed By: #### C BC #### [facility] [address] [place] [address] Dr. Chanel Manriquez RBC 4.67 106/ul Normal 4.20-5.40 [facility] Comment on above: Performed By: #### C BC #### [facility] [address] [place] [address] [address] Chanel Manriquez WBC 6.3 103/ul Normal 4.0-11.0 [facility] Comment on above: Performed By: #### C BC #### [facility] [address] [place] [address] Dr. Chanel Manrqiuez GLYCOHEMOGLOBIN A1Con 2022 ADA RECOMMENDATION SEE BELOW Normal [facility] Comment on above: Result Comment: ADA RECOMMENDED LIMIT 4.0 - 6.0 ADA THERAPEUTIC TARGET < 7.0 ACTION SUGGESTED > 7.0 Performed By: #### A 1C #### [facility] [address] [place] [address] Dr. Chanel Manriquez Glucose [Mass/Vol] 108 mg/dL Normal [facility] Comment on above: Performed By: #### A 1C #### [facility] [address] [place] [address] Dr. Chanel Manriquez HbA1c (Bld) [Mass fraction] 5.4 % Normal 4.5-6.2 [facility] Comment on above: Performed By: #### A 1C #### [facility] [address] [place] [address] Dr. Chanel Manriquez LIPID PROFILEon 11-16-2022 CHOL-HDL RATIO NORM SEE BELOW Normal [facility] Comment on above: Result Comment: 3.3 - 4.4 LOW RISK 4.4 - 7.1 AVERAGE RISK 7.1 - 11.0 MODERATE RISK >11.0 HIGH RISK Performed By: #### T SH, CMP, LIPID #### [facility] [address] [place] [address] [address] Chanel Manriquez Cholesterol [Mass/Vol] 135 mg/dL Normal <=200 [facility] Comment on above: Performed By: #### T SH, CMP, LIPID #### [facility] [address] [place] [address] [address] Chanel Manriquez Cholesterol in HDL [Mass/Vol] 40 mg/dL Normal 40-60 [facility] Comment on above: Performed By: #### T SH, CMP, LIPID #### [facility] [address] [place] [address] [address] Chanel Manriquez Cholesterol in LDL [Mass/Vol] 80.4 mg/dL Normal [facility] Comment on above: Performed By: #### T SH, CMP, LIPID #### [facility] [address] [address] [address] Chanel Manriquez Cholesterol.total/ Cholesterol in HDL [Mass ratio] 3.4 {ratio} Normal [facility] Comment on above: Performed By: #### T SH, CMP, LIPID #### [facility] [address] [address] [address] Chanel Manriquez HDL NORMAL > or = 60 mg/dl - LO W CARDIOVASCULAR RISK <40 mg/dl - HIGH CARDIOVASCULAR RISK Normal [facility] Comment on above: Performed By: #### T SH, CMP, LIPID #### [facility] [address] [address] [address] Chanel aMnriquez LDL CALC NORMAL SEE BELOW Normal [facility] Comment on above: Result Comment: <100 mg/dl OPTIMAL 100 - 129 mg/dl NEAR OR ABOVE OPTIMAL 130 - 159 mg/dl BORDERLINE HIGH 160 - 189 mg/dl HIGH >190 mg/dl VERY HIGH Performed By: #### T SH, CMP, LIPID #### [facility] [address] [address] [address] Chanel Manriquez Triglyceride [Mass/Vol] 73 mg/dL Normal <=150 [facility] Comment on above: Performed By: #### T SH, CMP, LIPID #### [facility] Laboratory [address] [address] [address] Chanel Manriquez VLDL CALC 14.6 mg/dL Normal [facility] Comment on above: Performed By: #### T SH, CMP, LIPID #### [facility] [address] [address] [address] Chanel Manriquez PROF 14(COMP METB)on 023 Albumin [Mass/Vol] 3.4 g/dL Normal 3.4-5.0 [facility] Comment on above: Performed By: #### T SH, CMP, LIPID #### [facility] [address] [place] [address] Dr. Chanel Manriquez Albumin/Globulin [Mass ratio] 0.9 {ratio} Normal [facility] Comment on above: Performed By: #### T SH, CMP, LIPID #### [facility] [address] [place] [address] Dr. Chanel Manriquez ALP [Catalytic activity/Vol] 62 U/L Normal 46-116 [facility] Comment on above: Performed By: #### T SH, CMP, LIPID #### [facility] [address] [place] [address] Dr. Chanel Manriquez ALT [Catalytic activity/Vol] 17 U/L Normal 14-59 [facility] Comment on above: Performed By: #### T SH, CMP, LIPID #### [facility] [address] [place] [address] Dr. Chanel Manriquez Anion gap [Moles/Vol] 10.5 mmol/L Normal [facility] Comment on above: Performed By: #### T SH, CMP, LIPID #### [facility] [address] [place] [address] Dr. Chanel Manriquez AST [Catalytic activity/Vol] 15 U/L Normal 15-37 [facility] Comment on above: Performed By: #### T SH, CMP, LIPID #### [facility] [address] [place] [address] Dr. Chanel Manriquez Bilirubin [Mass/Vol] 0.5 mg/dL Normal 0.2-1.0 [facility] Comment on above: Performed By: #### T SH, CMP, LIPID #### [facility] [address] [place] [address] Dr. Chanel Manriquez Calcium [Mass/Vol] 8.7 mg/dL Normal 8.5-10.1 [facility] Comment on above: Performed By: #### T SH, CMP, LIPID #### [facility] [address] [address] [address] Chanel Manriquez Chloride [Moles/Vol] 104 mmol/L Normal 98-107 [facility] Comment on above: Performed By: #### T SH, CMP, LIPID #### [facility] [address] [place] [address] Dr. Chanel Manriquez CO2 [Moles/Vol] 28.4 mmol/L Normal 21.0-32.0 [facility] Comment on above: Performed By: #### T SH, CMP, LIPID #### [facility] [address] [place] [address] Dr. Chanel Manriquez Creatinine [Mass/Vol] 0.79 mg/dL Normal 0.55-1.02 [facility] Comment on above: Performed By: #### T SH, CMP, LIPID #### [facility] [address] [place] [address] Dr. Chanel Manriquez EGFR-AF IRANIAN >60 Normal >=60 [facility] Comment on above: Performed By: #### T SH, CMP, LIPID #### [facility] [address] [place] [address] Dr. Chanel Manriquez EGFR-NON AF IRANIAN >60 Normal >=60 [facility] Comment on above: Performed By: #### T SH, CMP, LIPID #### [facility] [address] [place] [address] Dr. Chanel Manriquez Globulin (S) [Mass/Vol] 3.9 g/dL Normal [facility] Comment on above: Performed By: #### T SH, CMP, LIPID #### [facility] [address] [place] [address] Dr. Chanel Manriquez Glucose [Mass/Vol] 101 mg/dL Normal 74-106 [facility] Comment on above: Performed By: #### T SH, CMP, LIPID #### [facility] [address] [address] [address] Chanel Manriquez Potassium [Moles/Vol] 3.9 mmol/L Normal 3.5-5.1 [facility] Comment on above: Performed By: #### T SH, CMP, LIPID #### [facility] [address] [place] [address] Dr. Chanel Manriquez Protein [Mass/Vol] 7.3 g/dL Normal 6.4-8.2 [facility] Comment on above: Performed By: #### T SH, CMP, LIPID #### [facility] [address] [place] [address] Dr. Chanel Manriquez Sodium [Moles/Vol] 139 mmol/L Normal 136-145 [facility] Comment on above: Performed By: #### T SH, CMP, LIPID #### [facility] [address] [place] [address] Dr. Chanel Manriquez Urea nitrogen [Mass/Vol] 13.0 mg/dL Normal 7.0-18.0 [facility] Comment on above: Performed By: #### T SH, CMP, LIPID #### [facility] [address] [place] [address] Dr. Chanel Manriquez Urea nitrogen/Creatinin e [Mass ratio] 16.5 mg/mg Normal [facility] Comment on above: Performed By: #### T SH, CMP, LIPID #### [facility] [address] [place] [address] Dr. Chanel Manriquez TSHon 11-16-2022 TSH 3.672 uIU/mL Normal 0.358-3.740 [facility] Comment on above: Performed By: #### T SH, CMP, LIPID #### [facility] [address] [place] [address] Dr. Chanel Manriquez MG MAMM SCREEN 3D MELISSA CADon 06-19-2022 MG MAMM SCREEN 3D MELISSA CAD Patient: MILDRED REED Exam Date: 06/19/2022 : 1980 Gender:F Ordering : DR CESAR LUTZ . Admission #: [id number] Family : DR JULIA MITCHELL M.D. Order #: [id number] CLICK HERE TO VIEW EXAM RADIOLOGY REPORT [...] lung cancer at age 68. LOCATION: [facility] BREAST COMPOSITION: Scattered areas fibroglandular density. [...] Huntley M.D. on 06/20/2022 at 14:07 Normal [facility] PAP ACOG PANEL 2: 30 to 65on 04-16-2022 . . Normal [facility] Comment on above: Result Comment: Perf ormed at: WB Performed By: #### [id number] #### [facility] [address] [address] [address] Chanel Manriquez Age Gdln ACOG Testing 30-65 Normal [facility] Comment on above: Performed By: #### [id number] #### [facility] [address] [address] [address] Chanel Manriquez DIAGNOSIS: Comment Normal [facility] Comment on above: Result Comment: NEGA TIVE FOR INTRAEPITHELIAL LESION OR MALIGNANCY. Performed at: WB Performed By: #### 4 [id number] #### [facility] [address] [address] [address] Chanel Manriquez HPV Aptima Negative Normal Negative [facility] Comment on above: Result Comment: This nucleic acid amplification test detects fourteen high-risk HPV types (16,18,31,33,35,39,45,51,52,56,58,59,66,68) without differentiation. Performed at: =G Performed By: #### [id number] #### [facility] [address] [place] [address] Dr. Chanel Manriquez Methodology: Comment Normal [facility] Comment on above: Result Comment: This liquid based ThinPrep(R) pap test was screened with the use of an image guided system. Performed at: WB Performed By: #### [id number] #### [facility] [address] [place] [address] Dr. Chanel Manriquez Note: Comment Normal [facility] Comment on above: Result Comment: The Pap smear is a screening test designed to aid in the detection of premalignant and malignant conditions of the uterine cervix. It is not a diagnostic procedure and should not be used as the sole means of detecting cervical cancer. Both false-positive and false-negative reports do occur. . Performed at: WB Performed By: #### 4 [id number] #### [facility] [address] [place] [address] Dr. Chanel Manriquez Performed by: Comment Normal [facility] Comment on above: Result Comment: Jasbir Young, Railway Signal Operator (ASCP) Performed at: WB Performed By: #### [id number] #### [facility] [address] [place] [address] Dr. Chanel Manriquez Specimen adequacy: Comment Normal [facility] Comment on above: Result Comment: Sati sfactory for evaluation. Endocervical and/or squamous metaplastic cells (endocervical component) are present. Performed at: WB Performed By: #### [id number] #### [facility] [address] [place] [address] Dr. Chanel Manriquez US THYROIDon 02-09-2022 US [...] one year is recommended. TR 4: The [employer] TI-RADS committee's white paper recommendations for thyroid lesions classified as TR4 (moderately suspicious) are listed below: > 1.0 cm. Follow-up ultrasound in 1, 2, 3, and 5 years. > 1.5 cm. FNA. J. Am Ava Radiol 2017;14:587-595. Electronically authenticated by: CLIFTON HUNTLEY Date: 2022-02-09 10:40 Normal [facility] SURGICAL PATHOLOGYon 019 SURGICAL PATHOLOGY Specimen #: [id number] Submitting Physician: GIDEON PRYOR MD FINAL DIAGNOSIS Outside slides [id number], A1-A16, B1; 04/06/2019; [facility] [place]: 1. Right thyroid and partial [...] Dr. Vicki Badillo, a colleague on the [facility] head and neck pathology service was consulted, and she agrees with the diagnoses. If you would like to discuss this case, please contact my office at [phone]. MAXIM/kmr 04/12/19 Efraín Wayne M.D. (Electronic Signature) SPECIMEN SUBMITTED A: 17 SLIDES ([id number]) CLINICAL DATA None provided. SLIDE/BLOCK DESCRIPTION A. 17 SLIDES ([id number]): Date of Report: 04/13/2019 Date of Procedure: 04/09/2019 Date of Receipt: 04/09/2019 Submitted by: GIDEON PRYOR MD Location: Diagnostic interpretation performed at [facility], [address] [place] [address]. CLIA Number: [id number] Normal [facility] Comment on above: Performed By: #### S #### See report for performing lab information. Vital Signs Date Time Vital Sign Value Performing Clinician Facility 01-12-2025 14:[id number] Body height 154.9 cm Patrizia Fernández MD Work Phone: [facility] 01-12-2025 14:31-0400 Body mass index (BMI) [Ratio] 35.9 kg/m2 Patrizia Fernández MD Work Phone: [facility] 01-12-2025 14:31040 Body weight 86.18 kg Patrizia Fernández MD Work Phone: [facility] 01-12-2025 14:31-0400 Diastolic blood pressure 89 mm[Hg] Patrizia Fernández MD Work Phone: [facility] 01-12-2025 14:31-0400 Heart rate 79 /min Patrizia Fernández MD Work Phone: [facility] 01-12-2025 14:31-0400 Systolic blood pressure 135 mm[Hg] Patrizia Fernández MD Work Phone: [facility] 06-30-2024 14:22-0400 Body height 154.9 cm Patrizia Fernández MD Work Phone: [facility] 06-30-2024 14:22-0400 Body mass index (BMI) [Ratio] 35.9 kg/m2 Patrizia Fernández MD Work Phone: [facility] 06-30-2024 14:22-0400 Body weight 86.18 kg Patrizia Fernández MD Work Phone: [facility] 06-30-2024 14:22-0400 Diastolic blood pressure 81 mm[Hg] Patrizia Fernández MD Work Phone: [facility] 06-30-2024 14:22-0400 Systolic blood pressure 128 mm[Hg] Patrizia Fernández MD Work Phone: [facility] 12-08-2023 15:00-0500 Body height 154.94 cm Julia Mitchell Other [facility] Other 12-08-2023 15:00-0500 Body mass index (BMI) [Ratio] 35.33 kg/m2 Julia Mitchell Other [facility] Other 12-08-2023 15:00-0500 Body weight 84.82 kg Julia Mitchell Other [facility] Other 12-08-2023 15:00-0500 Diastolic blood pressure 81 mm[Hg] Julia Mitchell Other [facility] Other 12-08-2023 15:00-0500 Systolic blood pressure 121 mm[Hg] Julia Mitchell Other [facility] Other 02-04-2023 11:00-0400 Body height 154.94 cm Julia Mitchell Other [facility] Other 02-04-2023 11:00-0400 Body mass index (BMI) [Ratio] 35.9 kg/m2 Julia Mitchell Other [facility] Other 02-04-2023 11:00-0400 Body weight 86.18 kg Julia Mitchell Other [facility] Other 02-04-2023 11:00-0400 Diastolic blood pressure 82 mm[Hg] Julia Mitchell Other [facility] Other 02-04-2023 11:00-0400 SaO2% (BldA) [Mass fraction] 97 % Julia Mitchell Other [facility] Other 02-04-2023 11:00-0400 Systolic blood pressure 122 mm[Hg] Julia Mitchell Other [facility] Other 11-21-2022 16:00-0500 Body height 154.94 cm Julia Mitchell Other [facility] Other 11-21-2022 16:00-0500 Body mass index (BMI) [Ratio] 36.46 kg/m2 Julia Mitchell Other [facility] Other 11-21-2022 16:00-0500 Body weight 87.54 kg Julia Mitchell Other [facility] Other 11-21-2022 16:00-0500 Diastolic blood pressure 88 mm[Hg] Julia Mitchell Other [facility] Other 11-21-2022 16:00-0500 SaO2% (BldA) [Mass fraction] 97 % Julia Mitchell Other [facility] Other 11-21-2022 16:00-0500 Systolic blood pressure 132 mm[Hg] Julia Mitchell Other [facility] Other Encounters Encounter Date Encounter Type Care Provider Facility Start: 01-12-2025 End: 01-12-2025 Office outpatient visit 15 minutes Patrizia Fernández MD Work Phone: [facility] Comment on above: Papillary microcarci noma of thyroid (CMS/HCC) (Primary Dx) Start: 01-12-2025 End: 01-12-2025 ambulatory PATRIZIA FERNÁNDEZ Not Available Start: 01-12-2025 End: 01-12-2025 Bamboo flowsheet Patrizia Fernández MD Work Phone: [facility] Start: 01-12-2025 End: 01-12-2025 Bamboo flowsheet Patrizia Fernández MD Work Phone: [facility] Start: 12-17-2024 End: 12-17-2024 Clinisync Result Encounter Patrizia Fernández MD Work Phone: [facility] Unsolicited Start: 12-17-2024 End: 12-17-2024 Clinisync Result Encounter Patrizia Fernández MD Work Phone: [facility] Unsolicited Start: 06-30-2024 End: 06-30-2024 Office outpatient visit 15 minutes Patrizia Fernández MD Work Phone: [facility] Comment on above: Malignant tumor of t hyroid gland (CMS/HCC) (Primary Dx) Start: 06-30-2024 End: 06-30-2024 ambulatory PATRIZIA FERNÁNDEZ Not Available Start: 06-30-2024 End: 06-30-2024 Bamboo flowsheet Patrizia Fernández MD Work Phone: [facility] Start: 06-30-2024 End: 06-30-2024 Bamboo flowsheet Patrizia Schultzs MD Work Phone: [facility] Start: 03-23-2024 End: 03-23-2024 ambulatory PATRIZIA SCHULTZS Not Available Start: 03-01-2024 End: 03-01-2024 ambulatory Clifton Huntley Facility:[facility] Start: 03-01-2024 End: 03-01-2024 ambulatory MD Clifton Huntley Work Phone: [facility] Work Phone: Start: 03-01-2024 End: 03-01-2024 Departed Referred MD Clifton Huntley Work Phone: [facility] Start: 02-11-2024 End: 02-11-2024 ambulatory PATRIZIA FERNÁNDEZ Not Available Start: 02-07-2024 Non-patient / Non-visit MD Pearce Work Phone: [facility] Work Phone: Start: 01-22-2024 Non-patient / Non-visit MD Pearce Work Phone: [facility] Work Phone: Start: 12-17-2023 Non-patient / Non-visit MD Pearce Work Phone: [facility] Work Phone: Start: 12-08-2023 End: 12-08-2023 ambulatory Julia Mitchell Other [facility] Other Start: 12-08-2023 Encounter for genera l adult medical examination without abnormal findings Julia Mitchell [facility] Start: 12-08-2023 Periodic preventive med est patient 40-64yrs Julia Mitchell [facility] Start: 07-02-2023 End: 07-02-2023 ambulatory Julia Mitchell Other [facility] Other Start: 07-02-2023 Telephone encounter Julia Mitchell [facility] Start: 02-04-2023 End: 02-04-2023 ambulatory Julia Mitchell Other [facility] Other Start: 02-04-2023 Office outpatient vi sit 15 minutes Julia Mitchell [facility] Start: 01-31-2023 End: 01-31-2023 ambulatory Julia Mitchell Other [facility] Other Start: 01-31-2023 Telephone encounter Julia Mitchell [facility] Start: 01-25-2023 End: 01-26-[address] JULIA MITCHELL Facility:[facility] Start: 01-15-[address] JULIA MITCHELL [facility] ity:[facility] Start: 11-22-2022 Encounter for genera l adult medical examination without abnormal findings DR JULIA MITCHELL [facility] Start: 11-21-2022 End: 11-21-2022 ambulatory Julia Mitchell Other [facility] Other Start: 11-21-2022 Encounter for genera l adult medical examination without abnormal findings Julia Mitchell [facility] Start: 11-21-2022 Periodic preventive med est patient 40-64yrs Julia Mitchell [facility] Start: 11-16-2022 End: 11-17-[address] JULIA MITCHELL Facility:[facility] Start: 11-16-2022 End: 11-17-2022 Encounter for general adult medical examination without abnormal findings DR JULIA MITCHELL Facility:[facility] Start: 11-13-2022 End: 11-13-2022 ambulatory Julia Mitchell Other [facility] Other Start: 11-13-2022 Encounter for genera l adult medical examination without abnormal findings Julia Mitchell [facility] Start: 11-13-2022 Telephone encounter Julia Mitchell [facility] Start: 08-13-2022 End: 11-22-[address] JULIA MITCHELL Facility:[facility] Start: 06-19-2022 End: 06-20-[address] JULIA MITCHELL Facility:[facility] Start: 04-10-2022 End: 04-10-[address] CESAR LUTZ . Facility:[facility] Start: 04-10-2022 Gynecological examin ation normal Julia Paula Other [facility] Other Start: 02-08-2022 End: 02-09-[address] PATRIZIA FERNÁNDEZ Facility:[facility] Start: 03-13-2021 Adult health examination Lou dhaliwal Paula Other [facility] Other Procedures Date Procedure Procedure Detail Performing Clinician Start: 12-17-2024 Us soft tissue head & neck real time imge docm Patrizia Fernández MD Work Phone: Start: 04-10-2022 Screening for malign ant neoplasm [...] Treatment Date Care Activity Detail Author Start: 01-12-2025 End: 01-12-2025 Patient encounter procedure [facility] Comment on above: Arrived Start: 07-04-2024 Influenza vaccination Influenza Vacc ine (#1) [facility] Start: 06-30-2024 End: 06-30-2024 Patient encounter procedure 06/30/2024 2:30 PM EDT Office Visit [facility] [address] [facility] [address] [place] [id number] Patrizia Fernández MD [address] [facility] [address] [place] [address] Arrived [facility] Comment on above: Arrived Start: 2018 Screening for malign ant neoplasm of breast Mammogram [facility] Start: 2008 Screening for malign ant neoplasm of cervix [facility] Start: 1999 Screening for malign ant neoplasm of cervix Pap Smear [facility] Start: 1980 Screening for malign ant neoplasm of colon [facility] Immunizations Immunization Date Immunization Notes Care Provider Laura torre 08-06-2021 influenza virus vacc ine, unspecified formulation Patrizia Fernández MD Work Phone: [facility] Payers Date Payer Category Payer Blue [place] Blue [facility] BCBS [id number] 2022 Unknown BCBS BCBS [id number] 2022-Present [phone] [id number] [place], [place] [id number] [facility] [id number] 2019 Unknown [id number] 1980 Unknown [id number] 2.16.840.1.427940.3.579.2. 593 1980 Unknown [id number] 2.16.840.1.027453.3.579.2. 593 1980 Unknown [id number] 2.16.840.1.939281.3.579.2. 593 1980 Unknown [id number] 2.16.840.1.636316.3.579.2. 593 1980 Unknown [id number] 2.16.840.1.562389.3.579.2. 593 1980 Unknown [id number] 2.16.840.1.778407.3.579.2. 593 1980 Unknown [id number] 2.16.840.1.452575.3.579.2. 593 1980 Unknown [id number] 2.16.840.1.277846.3.579.2. 1259 1980 Unknown [id number] 2.16.840.1.204690.3.579.2. 1259 1978 Unknown [id number] 2.16.840.1.928309.3.579.2. 1259 1978 Unknown [id number] 2.16.840.1.591252.3.579.2. 1259 1961 Self-pay Medicaid [facility] [id number] Unknown [id number] Unknown [id number] 2.16.840.1.110074.3.579.2. 531 Social History Date Type Detail Facility Start: 03-23-2024 End: 06-30-2024 Sex Assigned At [facility] Other Start: 02-04-2023 End: 02-11-2024 Tobacco smoking status MIIS Never smoked tobacco (finding) [facility] Start: 1980 Sex Assigned At Female F [facility] Start: 02-11-2024 Tobacco use and exposure Smokeless tobacco non-user [facility] Start: 06-30-2024 End: 01-12-2025 Alcoholic beverage intake Ex-drinker (finding) [facility] Start: 03-23-2024 End: 06-30-2024 History of Social function [facility] Start: 1980 Sex assigned at Not on file [facility] Clinical Notes 11-13-2022 to 01-12-2025 Patrizia Fernández MD - 01/12/2025 2:30 PM EDTHielmer Fernández MD - 06/30/2024 2:30 PM EDT Note Date & Type Note Facility 01-12-2025 History of Presen t illness Narrative Subjective Patient ID: Mildred Reed is a 44 y.o. female who presents for Thyroid Nodule (Follow up ultrasound [facility] 12/17/24) US shows a [id number] eft thyroid nodule. No sig change compared to 2019 Family History Problem Relation Name Age of [...] Primary hypertension (CMS/HCC) 02/11/2024 Thyrotoxicosis (CMS/HCC) 09/04/2010 Non-toxic multinodular goiter (CMS/HCC) 01/12/2025 Obesity (BMI 30.0-34.9) 01/12/2025 Resolved Ambulatory Problems Diagnosis Date Noted No Resolved Ambulatory Problems Past Medical History: Diagnosis Date Disease of thyroid gland (CMS/HCC) Hypertension (CMS/HCC) Past Surgical History: Procedure Laterality Date SECTION, CLASSIC 2010, 2014, 2016 THYROIDECTOMY, PARTIAL 04/06/2019 RT zara, partial left thyroidectomy, [place] Allergies Allergen Reactions Bacitracin Other Reaction(s): Unknown [...] to visit. 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 Restart annual US. Last TSH one year ago. Will need synthroid refill soon. Pt to get TSH at work and let us know the level. documented in this encounter [facility] 06-30-2024 History of Presen t illness Narrative Subjective Patient ID: Mildred Reed is a 43 y.o. female who presents for Thyroid Nodule (6 mo check with ultrasound [facility] 06/21/24) US shows a [id number] left nodule compared to [id number] in January Family History Problem Relation Name [...] to visit. Objective Last Recorded Vitals Vitals: 06/30/24 1422 BP: 128/81 ENT Physical Exam Constitutional Appearance: patient appears well-developed, well-nourished and well-groomed, Communication/Voice: communication appropriate for developmental age; vocal quality normal; Assessment/Plan H/O thyroid CA. US shows a very stable solitary left nodule. Repeat US 6 mo documented in this encounter [facility] 12-08-2023 Evaluation note Encounter Date Diagnosis Assessment [...] further guidance if her test is positive. [facility] Other 08-30-2023 Evaluation note* Encounter Date Diagnosis Assessment Notes Treatment Notes Treatment Clinical Notes Jun, Screening mammogram for breast cancer (ICD-10 - Z12.31) [facility] Other 04-04-2023 Evaluation note* Encounter Date Diagnosis Assessment Notes Treatment Notes Treatment Clinical Notes Feb, Hypertension (ICD-10 - I10) Present readings are normal. Continue present med. Discussed decreasing salt and starting exercise to improve BP. Would not add or increase BP med at this time. Pt in agreement. [facility] Other 01-19-2023 Evaluation note* Encounter Date Diagnosis [...] (ICD-10 - E06.3) Continued followup w ENT [facility] Other 01-11-2023 Evaluation note* Encounter Date Diagnosis Assessment Notes Treatment Notes Treatment Clinical Notes Nov, Wellness examination (ICD-10 - Z00.00) [facility] Other Evaluation noteNo InformationNort AbbeyPost Other Evaluation noteNo assessment information available [facility] Work Phone: Evaluation note* Diagnosis Malignant tumor of thyroid gland (CMS/HCC)- Primary Malignant neoplasm of thyroid gland [facility] Diagnosis Papillary microcarcinoma of thyroid (CMS/HCC)- Primary [facility] Narrative - Reported* Type Description Date Medical History MNG Medical History Hshimoto's disease Medical History Hypertension Medical History Hypothyroidism Medical History Anxiety Surgical History C section x2 Surgical History Right Carpal Tunnel Surgical History Thyroidectomy (right) Surgical History Thyroidectomy (piece of left) AB Tasty Other History general Narrative - Reported* Type Description Date Medical History MNG Medical History Hshimoto's disease Medical History Hypertension Medical History Hypothyroidism Medical History Anxiety Surgical History C section x2 Surgical History Right Carpal Tunnel Surgical History Thyroidectomy (right) Surgical History Thyroidectomy (piece of left) Hospitalization History SEE SURGICAL HX AB Tasty Other Summary Purpose Family History No Family History Records FoundNo Family History Records FoundNo Family History Records FoundNo Family History Records Found Advance Directives No Advanced Directives Records Found Advance Directive Response Recorded Date/ Time Advance Directives No July h, 2016 10:57am Additional Source Comments INFORMATION SOURCE (unrecogn ized section and content) DATE CREATED AUTHOR 04/14/2019 [facility] DATE CREATED AUTHOR AUTHOR'S ORGANIZ ATION 02/01/2023 [facility] DATE CREATED AUTHOR AUTHOR'S ORGANIZ ATION 03/05/[address] [facility] DATE CREATED AUTHOR AUTHOR'S ORGANIZ ATION 01/15/2025 [facility] EPIC REASON FOR VISIT (unrecogniz ed section and content) Reason Comments Thyroid Nodule 6 mo check with ultr asound [facility] 06/21/24 Reason Comments Thyroid Nodule Follow up ultrasound [facility] 12/17/24 Care Teams (unrecognized sec tion and content) [...] March 01, 2024 End: March 01, 2024 Certified Orthoptist Relationship Specialty Start Date End Date Julia Mitchell MD [address] [place] [address] PCP - General Family Medicine 12/19/23 Certified Orthoptist Relationship Specialty Start Date End Date Julia Mitchell MD [address] [facility] [place] [address] PCP - General Family Medicine 12/19/23 Certified Orthoptist Relationship Specialty Start Date End Date Julia Mitchell MD [address] [facility] [place] [address] PCP - General Family Medicine 12/19/23 Certified Orthoptist Relationship Specialty [place] [address] [place] [phone] PCP - General Family Medicine 12/19/23 Goals [...] BE BASED ON THE PRIMARY CLINICAL RECORDS. [facility]. provides no warranty or guarantee of the accuracy or completeness of information in this document.
[2025-01-22 07:51] LABS: Basophils Percent Auto 0.6 % (0.2-2.0); Eosinophils Absolute Auto 0.1 10^3/uL (0.0-0.7); Eosinophils Percent Auto 2.9 % (0.9-7.0); Hematocrit 40.8 % (36.0-48.0); Hemoglobin 13.9 g/dL (12.0-16.0); Immature Granulocytes Abs Auto 0.01 10^3/uL (0.00-0.03); Immature Granulocytes Pct Auto 0.2 % (0.0-0.5); Lymphocytes Absolute Auto 1.1 10^3/uL (1.2-3.8); Lymphocytes Percent Auto 21.8 % (20.5-60.0); Mean Corpuscular HGB Conc 34.1 g/dL (29.9-35.2); Mean Corpuscular Hemoglobin 29.6 pg (26.7-34.0); Mean Platelet Volume 9.5 fL (9.5-13.5); Monocytes Absolute Auto 0.5 10^3/uL (0.3-0.8); Monocytes Percent Auto 10.3 % (1.7-12.0); Neutrophils Absolute Auto 3.1 10^3/uL (1.4-6.5); Neutrophils Percent Auto 64.2 % (43.0-75.0); Platelet Count 247 10^3/uL (150-450); Red Blood Count 4.69 10^6/uL (4.20-5.40); Red Cell Distribution Width 12.8 % (11.0-15.0); White Blood Count 4.9 10^3/uL (4.0-11.0)
[2025-01-22 07:56] LABS: Estimated Average Glucose 111 mg/dL; Glycohemoglobin A1C 5.5 % (4.5-6.2)
[2025-01-22 08:15] LABS: Alanine Aminotransferase 28 U/L (14-59); Albumin Globulin Ratio 0.8; Albumin Level 3.4 g/dL (3.4-5.0); Alkaline Phosphatase 74 U/L (46-116); Aspartate Amino Transferase 19 U/L (15-37); BUN Creatinine Ratio 15.2; Bilirubin Total 0.6 mg/dL (0.2-1.0); Calcium 8.7 mg/dL (8.5-10.1); Chloride 106 mmol/L (98-107); Chol HDL Ratio 2.9; Cholesterol 132 mg/dL (<=200); Estimated GFR (African America >60 (>=60 mL/min/1.73m^2); Estimated GFR (Non-African Ame >60 (>=60 mL/min/1.73m^2); Globulin 4.1 g/dL; Glucose 100 mg/dL (74-106); HDL Cholesterol 45 mg/dL (40-60); LDL Cholesterol Calculated 75.2 mg/dL; Sodium 140 mmol/L (136-145); TSH W/ REFLEX FT4 0.446 uIU/mL (0.358-3.740); Total Protein 7.5 g/dL (6.4-8.2); Triglycerides 59 mg/dL (<=150); VLDL CHOLESTEROL 11.8 mg/dL
== END 2025-01-22 07:06 | disposition home or self-care (01) ==
LOC: LAB 07:05
PROVIDERS: PCP Family Medicine; Visit Provider Family Medicine
DX: Z00.00 Encounter for general adult medical examination without abnormal findings (principal)
CPT/HCPCS: 36415; 80053; 80061; 83036; 84443; 85025

== ENCOUNTER 2025-07-12 13:46 | Outpatient (OUT) | payer BC, SELFPAY ==
--- OUTSIDE RECORDS SUMMARY | 2012-01-30 05:29 | XMS_ITS | Continuity of Care Document ---
Author Organization [facility] Address [address] [place] [address] Phone Care Team Providers Care Watch Guard Gate Name Role Phone Arun GONZALESJacky Unavailable Unavailable Procedures Procedure Date TB INTRADERMAL TEST TB INTRADERMAL TEST Advance Directives Directive Yes / No Effective Date File Name Resuscitation Not Answered N/A N/A Life Support Not Answered N/A N/A Intubation Not Answered N/A N/A Antibiotics Not Answered N/A N/A IV Fluid Support Not Answered N/A N/A Tube Feed Not Answered N/A N/A Other Directive N/A N/A WARNING:The information contained in this section is historical and is provided for information only and does not constitute a legal document or any assurance that the information is still accurate. Please verify the information with the aggarwal of the legal document before using it for clinical purposes. Encounters Encounter Description Practice Location Reason(s) For Visit Diagnoses Date Provider Providers Copied on Encounter [facility], [address] [place] [address], [id number], [place] tel:[phone] [facility] No Information Arun Martinez. [address] [place], [place], [id number], [place]. tel:[phone] [facility], [address] [place] [address], [id number], [place] tel:[phone] [facility] Screening examination for pulmonary tuberculosis Arun Martinez. [address] [place], [place], [id number], [place]. tel:[phone] [facility], [address] [place] [address], [id number], [place] tel:[phone] [facility] No Information Arun Martinez. [address] [facility], [place], [place], [id number], [place]. tel:[phone] Family History Family Member Type Diagnosis Age At Onset No Information Payers Payer name Insurance type Covered green party ID Authoriza tion(s) No Information Social History Type Description Quantity Date Captured Comments Alcohol Use Details Unknown Caffeine Use Details Unknown Tobacco Use Status No Information Smoking Status No Information Sex Female Chief Complaint And Reason For Visit No Information Reason For Referral Reason For Referral No Information History Of Present Illness Encounter Date Complaint History Of Prese nt Illness No Information Functional Status Date Functional Assessmen t No Information Instructions Date Instruction Additional Infor mation No Information Assessments Type Assessment Date No Information Patient Care Teams Name Effective Dates (start - stop) Status Members No Information
--- OUTSIDE RECORDS SUMMARY | 2025-07-12 13:49 | XMS_ITS | Encounter Summary ---
Author Organization [facility] Address [address] [place] [facility] [place] [address] Care Team Providers Care Director Industrial Relations Name Role Phone Julia Banegas MD Primary Care Provider [phone] Encounter Details Date Type Department Care Team (Late st Contact Info) Description 03/04/2024 Orders Only [facility] [address] [place] [address] Patrizia Peña MD [address] [place] [address] Social History Tobacco Use Types Packs/Day Years Used Date Smoking Tobacco: Never Smokeless Tobacco: Never Alcohol Use Standard Drinks/Week Comments Not Currently 0 (1 standard drink = 0.6 oz pur e alcohol) Comments Unknown Sex and Gender Information Value Date Recorded Sex Assigned at Not on file Legal Sex Female 6:34 PM EDT Gender Identity Not on file Sexual Orientation Not on file documented as of this encounter Plan of Treatment Not on file documented as of this encounter Procedures Procedure Name Priority Date/Time Associated Diagnosis Comments GENERAL PATHOLOGY Routine 03/03/2024 2:46 PM EDT documented in this encounter Results * GENERAL PATHOLOGY (03/03/2024 2:46 PM EDT) Patrizia Peña MD [facility] Final Result documented in this encounter Visit Diagnoses Not on filedocumented in this encounter Care Teams Director Industrial Relations Relationship Specialty Start Date End Date Julia Banegas MD PCP - General Family Medicine 12/19/23 documented as of this encounter
--- OUTSIDE RECORDS SUMMARY | 2025-07-12 13:49 | XMS_ITS | Encounter Summary ---
Author Organization [facility] Address [address] [facility] [place] [address] Care Team Providers Care Cloth Mercerizing Supervisor Name Role Phone Julia Banegas MD Primary Care Provider [phone] Encounter Details Date Type Department Care Team (Late st Contact Info) Description 02/24/2024 Orders Only [facility] [address] [facility] [address] [place] [address] Julia Banegas MD [address] [facility] [place] [address] Social History Tobacco Use Types Packs/Day Years [...] Procedure Name Priority Date/Time Associated Diagnosis Comments SCANNED LABS Routine 02/07/2024 9:31 AM EDT documented in this encounter Results * SCANNED LABS (02/07/2024 9:31 AM EDT) us Julia Banegas MD LAB CHG PERFORMABLES Final Resul t documented in this encounter Visit Diagnoses Not on filedocumented in this encounter Care Teams Cloth Mercerizing Supervisor Relationship Specialty Start Date End Date Julia Banegas MD PCP - General Family Medicine 12/19/23 documented as of this encounter
--- OUTSIDE RECORDS SUMMARY | 2025-07-12 13:49 | XMS_ITS | Encounter Summary ---
Author Organization [facility] Address [id number] [address] [place] [address] Care Team Providers Care Superintendent Drilling And Production Name Role Phone Unavailable Primary Care Provider Unavailabl e Encounter Details Date Type Department Care Team (Late st Contact Info) Description 05/25/2020 Telephone [facility] [place] [address] Bhavna Bey CMA Social History Tobacco Use Types Packs/Day Years Used Date Smoking Tobacco: Never Assessed Childcare Answer Date Recorded Childcare Unknown 10/07/2019 Employment Answer Date Recorded Employment Unknown 10/07/2019 Comments Unknown Sex and Gender Information Value Date Recorded Sex Assigned at Not on file Legal Sex Female 8:18 AM EST Gender Identity Not on file Sexual Orientation Not on file documented as of this encounter Plan of Treatment Not on file documented as of this encounter Visit Diagnoses Not on filedocumented in this encounter
--- OUTSIDE RECORDS SUMMARY | 2025-07-12 13:49 | XMS_ITS | Encounter Summary ---
Author Organization [facility] Address [address] [place] [address] Care Team Providers Care Director Medical Name Role Phone Julia Banegas MD Primary Care Provider [phone] Encounter Details Date Type Department Care Team (Late st Contact Info) Description 01/22/2024 Orders Only [facility] [address] [place] [phone] Luciana Steen MA Papillary carcinoma of thyroid (HCC) Social History Tobacco Use Types Packs/Day Years Used Date Smoking Tobacco: Never Assessed Comments Unknown Sex and Gender Information Value Date Recorded Sex Assigned at Not on file Legal Sex Female 6:34 PM EDT Gender Identity Not on file Sexual Orientation Not on file documented as of this encounter Plan of Treatment Not on file documented as of this encounter Visit Diagnoses Diagnosis Papillary carcinoma of thyroid (HCC) Malignant neoplasm of thyroid gland documented in this encounter Care Teams Director Medical Relationship Specialty Start Date End Date Julia Banegas MD PCP - General Family Medicine 12/19/23 documented as of this encounter
--- OUTSIDE RECORDS SUMMARY | 2025-07-12 13:49 | XMS_ITS | Encounter Summary ---
Author Organization [facility] Address [address] [place] [address] Care Team Providers Care Kitchen Food Assembler Name Role Phone Julia Banegas MD Primary Care Provider [phone] Encounter Details Date Type Department Care Team (Late st Contact Info) Description 03/01/2024 Clinisync Result Encounter [facility] External Department Unsolicited Jonathan Peña MD [address] [facility] [address] [place] [address] Social History Tobacco Use Types Packs/Day Years [...] Procedure Name Priority Date/Time Associated Diagnosis Comments US BIOPSY THYROID 03/01/2024 3:5 9 PM EDT documented in this encounter Results * US BIOPSY THYROID (03/01/2024 3:59 PM EDT) Anatomical Region Laterality Modality Other 03/01/2024 3:59 PM EDT Narrative 03/01/2024 4:01 PM EDT The [address] [address] Ultrasound Report Signed Patient: RHONDA REED MR#: [id number] : 1980 Acct:[id number] Age/Sex: 43 / F ADM Date: 03/01/24 Loc: US Attending Dr: Jonathan Peña M.D. Ordering Physician: Jonathan Peña M.D. Date of Service: 03/01/24 Procedure(s): US biopsy thyroid Accession Number(s): [id number] cc: Julia Banegas M.D.; Jonathan Peña M.D. The [place] [id number] Patient Name: RHONDA REED MRN: [id number] date: 1980 Sex: F Assigned Patient Location: US Current Patient Location: Accession/Order Number: [id number] Exam Date: 03/01/2024 14:30 Report Date: 03/01/2024 15:59 At the request of: JONATHAN PEÑA Procedure: US biopsy thyroid EXAMINATION: US biopsy thyroid HISTORY: thyroid nodule COMPARISON: Ultrasound thyroid 01/28/2024 TECHNIQUE: After obtaining informed consent, ultrasound-guided fine needle aspiration was performed in the usual sterile manner. FINDINGS: IMAGING: Ultrasound. BIOPSY NEEDLE: 25-gauge; 4 separate passes LOCATION: Posterior inferior left lobe hypoechoic 12 x 12 x 8 mm nodule. SPECIMEN TYPE: Cellular tissue. LOCAL ANESTHETIC: Buffered Xylocaine. COMPLICATIONS: None. LABORATORY: Prepared slide smears and washings for cell block evaluation. OTHER: Negative. PATHOLOGY: Pending. An addendum will be added when results are available. US/US biopsy thyroid IMPRESSION: 1. Uneventful ultrasound guided fine needle aspiration (FNA). 2. Pathology results are pending. Electronically authenticated by: PRINCE HUNTLEY Date: 03/01/2024 15:59 Dictated By: Prince Huntley M.D. Signed By: 03/01/24 1605 DD/ 1558 TD/TT: Manager Disaster Recovery: Procedure Note Radiology, Radiologist, MD - 03/01/2024 [place] [address] Ultrasound Report Signed Patient: RHONDA REED LMR#: [id number] : 1980Acct:[id number] Age/Sex: 43 / FADM Date: 03/01/24 Loc: US Attending Dr: Jonathan Peña M.D. Ordering Physician: Jonathan Peña M.D. Date of Service: 03/01/24 Procedure(s): US biopsy thyroid Accession Number(s): [id number] cc: Julia Banegas M.D.; Jonathan Peña M.D. [place] [id number] Patient Name: RHONDA REED MRN: [facility]:[id number] date: 1980 Sex: F Assigned Patient Location: US Current Patient Location: Accession/Order Number: [id number] Exam Date: 03/01/2024 14:30 Report Date: 03/01/2024 15:59 At the request of: JONATHAN PEÑA Procedure: US biopsy thyroid EXAMINATION: US biopsy thyroid HISTORY: thyroid nodule COMPARISON: Ultrasound thyroid 01/28/2024 TECHNIQUE: After obtaining informed consent, ultrasound-guided fine needle aspiration was performed in the usual sterile manner. FINDINGS: IMAGING: Ultrasound. BIOPSY NEEDLE: 25-gauge; 4 separate passes LOCATION: Posterior inferior left lobe hypoechoic 12 x 12 x 8 mm nodule. SPECIMEN TYPE: Cellular tissue. LOCAL ANESTHETIC: Buffered Xylocaine. COMPLICATIONS: None. LABORATORY: Prepared slide smears and washings for cell block evaluation. OTHER: Negative. PATHOLOGY: Pending. An addendum will be added when results are available. US/US biopsy thyroid IMPRESSION: 1. Uneventful ultrasound guided fine needle aspiration (FNA). 2. Pathology results are pending. Electronically authenticated by: PRINCE HUNTLEY Date: 03/01/2024 15:59 Dictated By: Prince Huntley M.D. Signed By:03/01/24 1601 DD/ 1559 TD/TT: Manager Disaster Recovery: us Jonathan Peña MD [facility] IMAGING Final Resul t documented in this encounter Visit Diagnoses Not on filedocumented in this encounter Care Teams Kitchen Food Assembler Relationship Specialty Start Date End Date Julia Banegas MD PCP - General Family Medicine 12/19/23 documented as of this encounter
--- OUTSIDE RECORDS SUMMARY | 2025-07-12 13:49 | XMS_ITS | Encounter Summary ---
Author Organization [facility] Address [address] [place] [address] Care Team Providers Care Beading Sawyer Name Role Phone Julia Banegas MD Primary Care Provider [phone] Encounter Details Date Type Department Care Team (Late st Contact Info) Description 01/29/2024 Clinisync Result Encounter [facility] External Department Unsolicited Jonathan Peña MD [address] [place] [address] Social History Tobacco Use Types Packs/Day Years [...] Name Priority Date/Time Associated Diagnosis Comments US THYROID 01/29/2024 7:34 AM EDT documented in this encounter Results * US thyroid (01/29/2024 7:34 AM EDT) Anatomical Region Laterality Modality Head, Neck Ultrasound 01/29/2024 7:34 AM EDT Narrative 01/29/2024 7:36 AM EDT The [address] [address] Ultrasound Report Signed Patient: RHONDA REED MR#: [id number] : 1980 Acct:[id number] Age/Sex: 43 / F ADM Date: 01/28/24 Loc: US Attending Dr: Jonathan Timmis M.D. Ordering Physician: Jonathan Peña M.D. Date of Service: 01/28/24 Procedure(s): US thyroid Accession Number(s): [id number] cc: Julia Banegas M.D.; Jonathan Peña M.D. [address] [address] Patient Name: RHONDA REED MRN: [facility]:[id number] date: 1980 Sex: F Assigned Patient Location: US Current Patient Location: Accession/Order Number: [id number] Exam Date: 01/28/2024 20:36 Report Date: 01/29/2024 07:34 At the request of: JONATHAN PEÑA Procedure: US thyroid EXAMINATION: US thyroid HISTORY: PAPILLARY CARCINOMA OF THYROID C73 COMPARISON: 01/25/2023 TECHNIQUE: Sonographic images of the thyroid gland were obtained. FINDINGS: The right thyroid lobe is surgically absent. Identified in the right thyroid fossa is a 1.3 x 0.5 x 1.1 cm area of hypoechogenicity, postsurgical change versus residual/recurrent thyroid tissue The thyroid isthmus measures 1.8 mm. No focal nodule. The left thyroid lobe measures 3.8 x 2.0 x 1.7 cm., Regenia 6 echotexture with diffuse hypervascularity. Single focal nodule. Nodule 1:1.5 x 1.4 x 1.4 cm. Mixed solid and cystic, hypoechoic, wide, lobular margins, no calcifications. TR 4 Normal size normal morphology lymph node right thyroid fossa US/US thyroid IMPRESSION: Slight interval increase in size of a now 1.5 cm left thyroid TR 4 nodule Heterogeneous hypervascular thyroid lobe suggesting thyroiditis TI-RADS: The [employer] TI-RADS committee's white paper recommendations for thyroid lesions classified as TR4 (moderately suspicious) are listed below: > 1.0 cm. Follow-up ultrasound in 1, 2, 3, and 5 years. > 1.5 cm. FNA. J. Am Marcella Radiol 2017;14:587-595. Electronically authenticated by: HERMANN GUZMAN Date: 01/29/2024 07:34 Dictated By: Hermann Guzman M.D. Signed By: 01/29/24 0736 DD/ 0734 TD/TT: Lacquer Sizer: Procedure Note Radiology, Radiologist, MD - 01/29/2024 The [place] [id number] Ultrasound Report Signed Patient: RHONDA REED LMR#: [id number] : 1980Acct:[id number] Age/Sex: 43 / FADM Date: 01/28/24 Loc: US Attending Dr: Jonathan Peña M.D. Ordering Physician: Jonathan Peña M.D. Date of Service: 01/28/24 Procedure(s): US thyroid Accession Number(s): [id number] cc: Julia Banegas M.D.; Jonathan Peña M.D. The [address] [address] Patient Name: RHONDA REED MRN: [facility]:[id number] date: 1980 Sex: F Assigned Patient Location: US Current Patient Location: Accession/Order Number: [id number] Exam Date: 01/28/2024 20:36 Report Date: 01/29/2024 07:34 At the request of: JONATHAN PEÑA Procedure: US thyroid EXAMINATION: US thyroid HISTORY: PAPILLARY CARCINOMA OF THYROID C73 COMPARISON: 01/25/2023 TECHNIQUE: Sonographic images of the thyroid gland were obtained. FINDINGS: The right thyroid lobe is surgically absent. Identified in the rightthyroid fossa is a 1.3 x 0.5 x 1.1 cm area of hypoechogenicity, postsurgicalchange versus residual/recurrent thyroid tissue The thyroid isthmus measures 1.8 mm. No focal nodule. The left thyroid lobe measures 3.8 x 2.0 x 1.7 cm., Regenia 6 echotexturewith diffuse hypervascularity. Single focal nodule. Nodule 1:1.5 x 1.4 x 1.4 cm. Mixed solid and cystic, hypoechoic, wide,lobular margins, no calcifications. TR 4 Normal size normal morphology lymph node right thyroid fossa US/US thyroid IMPRESSION: Slight interval increase in size of a now 1.5 cm left thyroid TR 4 nodule Heterogeneous hypervascular thyroid lobe suggesting thyroiditis TI-RADS: The [employer] TI-RADS committee's white paper recommendations for thyroid lesions classified as TR4 (moderatelysuspicious) are listed below: > 1.0 cm. Follow-up ultrasound in 1, 2, 3, and 5 years. > 1.5 cm. FNA. J. Am Marcella Radiol 2017;14:587-595. Electronically authenticated by: HERMANN GUZMAN Date: 01/29/2024 07:34 Dictated By: Hermann Guzman M.D. Signed By:01/29/24 0736 DD/ TD/TT: Lacquer Sizer: us Jonathan Peña MD IMG US PROCEDURES Final Resul t documented in this encounter Visit Diagnoses Not on filedocumented in this encounter Care Teams Beading Sawyer Relationship Specialty Start Date End Date Julia Banegas MD PCP - General Family Medicine 12/19/23 documented as of this encounter
--- OUTSIDE RECORDS SUMMARY | 2025-07-12 13:49 | XMS_ITS | Encounter Summary ---
Author Organization [facility] Address [address] [facility] [place] [address] Care Team Providers Care Forms Builder Name Role Phone Julia Banegas MD Primary Care Provider [phone] Encounter Details Date Type Department Care Team (Late st Contact Info) Description 03/05/2024 Orders Only [facility] [address] [place] [address] Patrizia Peña MD [address] [place] [address] Social History Tobacco Use Types Packs/Day Years [...] Associated Diagnosis Comments GENERAL PATHOLOGY Routine 03/03/2024 8:22 AM EDT documented in this encounter Results * GENERAL PATHOLOGY (03/03/2024 8:22 AM EDT) Patrizia Peña MD [facility] Final Result documented in this encounter Visit Diagnoses Not on filedocumented in this encounter Care Teams Forms Builder Relationship Specialty Start Date End Date Julia Banegas MD PCP - General Family Medicine 12/19/23 documented as of this encounter
--- OUTSIDE RECORDS SUMMARY | 2025-07-12 13:49 | XMS_ITS | Encounter Summary ---
Author Organization [facility] Address [address] [facility] [place] [address] Care Team Providers Care Acquisition Marketing Manager Name Role Phone Julia Banegas MD Primary Care Provider [phone] Encounter Details Date Type Department Care Team (Late st Contact Info) Description 01/15/2024 Orders Only [facility] [address] [place] [address] Sonali Santoyo, KESHAWN [address] [place] [address] Nontoxic multinodular goiter Social History Tobacco Use Types Packs/Day Years Used Date Smoking Tobacco: Never Assessed Comments Unknown Sex and Gender Information Value Date Recorded Sex Assigned at Not on file Legal Sex Female 6:34 PM EDT Gender Identity Not on file Sexual Orientation Not on file documented as of this encounter Plan of Treatment Not on file documented as of this encounter Visit Diagnoses Diagnosis Nontoxic multinodular goiter Nontoxic multinodular goiter documented in this encounter Care Teams Acquisition Marketing Manager Relationship Specialty Start Date End Date Julia Banegas MD PCP - General Family Medicine 12/19/23 documented as of this encounter
--- NOTE | 2025-07-12 13:50 | MM_ITS ---
Patient Name: RHONDA WYATT MR#: [id number] : 1980 Exam Date: 07/12/2025 Ordering Doctor: DR LISA MITCHELL M.D. RADIOLOGY REPORT PROCEDURE: MM TOMOSYNTHESIS SCREENING BI COMPARISON: MM TOMOSYNTHESIS SCREENING BI, 07/15/2023. MG MAMM SCREEN 3D MELISSA CAD, 06/19/2022. MG MAMM SCREEN 3D MELISSA CAD, 03/15/2021. MG MAMM SCREEN MELISSA W CAD, 09/29/2013. INDICATIONS: Screening Calculator Name NCI Breast Cancer Risk Assessment Tool 5 Year Breast Cancer Risk 0.80% Lifetime Breast Cancer Risk 8.50% Personal Breast Cancer No Personal Ovarian Cancer No Treatments None Family Cancers Aunt-maternal with breast cancer at age 55; Sister with cervical cancer at age 40; Father with lymphoma cancer at age 55; Grandfather-maternal with brain, lung cancer at age 70. LOCATION: [facility] BREAST COMPOSITION: There are scattered areas of fibroglandular density. FINDINGS: DIAGNOSTIC CATEGORY 1--NEGATIVE. RIGHT BREAST: No significant suspicious finding. LEFT BREAST: No significant suspicious finding. RECOMMENDATIONS: ROUTINE MAMMOGRAM AND CLINICAL EVALUATION IN 12 MONTHS. Dictated by: Zachary Torres DO on 07/12/2025 at 15:28 Approved by: Zachary Torres DO on 07/12/2025 at 15:32
--- OUTSIDE RECORDS SUMMARY | 2025-07-12 13:50 | XMS_ITS | Encounter Summary ---
Author Organization [facility] Address [address] [facility] [place] [address] Care Team Providers Care News Clipping Cutter Name Role Phone Julia Banegas MD Primary Care Provider [phone] Encounter Details Date Type Department Care Team (Late st Contact Info) Description 05/05/2024 Orders Only [facility] [address] [facility] [address] [place] [address] Patrizia Peña MD [address] [place] [address] Social History Tobacco Use Types Packs/Day Years [...] Priority Date/Time Associated Diagnosis Comments US THYROID Routine 03/05/2024 7:46 AM EDT documented in this encounter Results * US thyroid (03/05/2024 7:46 AM EDT) Anatomical Region Laterality Modality Head, Neck Ultrasound us Patrizia Peña MD IMG US PROCEDURES Final Resul t documented in this encounter Visit Diagnoses Not on filedocumented in this encounter Care Teams News Clipping Cutter Relationship Specialty Start Date End Date Julia Banegas MD PCP - General Family Medicine 12/19/23 documented as of this encounter
--- OUTSIDE RECORDS SUMMARY | 2025-07-12 13:50 | XMS_ITS | Encounter Summary ---
Author Organization [facility] Address [address] [facility] [[email or web address]] [place] [address] Care Team Providers Care Tool Rental Technician Name Role Phone Julia Banegas MD Primary Care Provider [phone] Encounter Details Date Type Department Care Team (Late st Contact Info) Description 08/20/2024 Orders Only [facility] [address] [place] [address] Kera Barks[place] [address] [facility] [address] [place] [address] Thyroid nodule ; Malignant tumor of thyroid gland (HCC) Social History Tobacco Use Types Packs/Day [...] as of this encounter Visit Diagnoses Diagnosis Thyroid nodule Nontoxic uninodular goiter Malignant tumor of thyroid gland (HCC) Malignant neoplasm of thyroid gland documented in this encounter Care Teams Tool Rental Technician Relationship Specialty Start Date End Date Julia Banegas MD PCP - General Family Medicine 12/19/23 documented as of this encounter
--- OUTSIDE RECORDS SUMMARY | 2025-07-12 13:50 | XMS_ITS | Clinical Summary ---
Author Organization [facility] Address [id number] [address] [place] [address] Care Team Providers Care Remelt Sugar Boiler Name Role Phone Unavailable Primary Care Provider Unavailabl e Social History Tobacco Use Types Packs/Day Years Used Date Smoking Tobacco: Never Assessed Childcare Answer Date Recorded Childcare Unknown 10/07/2019 Employment Answer Date Recorded Employment Unknown 10/07/2019 Purpose - Life Answer Date Recorded Purpose and direction in life Unknown Comments Unknown Sex and Gender Information Value Date Recorded Sex Assigned at Not on file Legal Sex Female 8:18 AM EST Gender Identity Not on file Sexual Orientation Not on file Plan of Treatment Health Maintenance Due Date Last Done Comments Depression Screening 1990 Tobacco Screening 1990 Adult BMI Screening 1996 DTaP,Tdap and Td Vaccines (1 - Tdap) 1997 Pap Smear 1999 Influenza Vaccine 07/04/2025 Medical Devices Not on file
--- OUTSIDE RECORDS SUMMARY | 2025-07-12 13:50 | XMS_ITS | Patient Health Record ---
Author Organization [facility] Address [address] [place] [address] Care Team Providers Care Master Dyer Name Role Phone Julia Banegas Primary Care Provider Unavailabl e Laurel Magallon Unavailable Raisa Forman Unavailable [phone] Allergies Allergen (clinical drug ingredient) Drug/Non Drug Allergy documented on EMR Reaction Allergy Type Onset Date Status bacitracin Bacitracin rash Drug Allergy Activ e Reason For Referral Reason elevated blood press ure reading Diagnosis 1 Elevated blood press ure reading (R03.0) Referral Organization [address] [facility] [employer] [facility] Referring Provider First Name Laurel Referring Provider Last Name Ladonna Luu Referring Provider Speciality Family Pra ctice Referred Provider Julia Banegas Referred Provider Specialty Family Pract ice Referral Priority Routine Medications Medication SIG (Take, Route, Fr equency, Duration) Notes Start Date End Date Status Metoprolol Tartrate Active Cetirizine HCl 10 MG 1 tablet Orally Once a day Active Levothyroxine Sodium Active Immunizations Vaccine Route Administration Date Status Comme nts Flu Vaccine (Given in Past) Unspecified Unknown 09/01/2020 Administered Flu Vaccine (Given in Past) Unspecified Unknown 11/08/2023 Administered Social History Tobacco Use: Social History Observation Description Date Details (start date - stop date) Never Smoker NA - NA Tobacco Control (Standard) Question Answer Notes Tobacco use: Nonsmoker Problems Problem Type SNOMED Code ICD Code Onset Dates Problem Status W/U Status Risk Notes Problem Hypothyroid (82645944) Hypothyroid (E03.9) Active confirmed Problem Primary hypertension (04287021) Primary hypertension (I10) Active confirmed Problem Obese class I (finding) (070290928222864 ) Obesity (BMI 30.0-34.9) (E66.9) Active confirmed Vital Signs Temperature 98.1 degrees Fahrenheit 03/01/2025 Respiratory Rate 16 /min 03/01/2025 Blood pressure diastolic 80 mm Hg 03/01/2025 Height 61 in 03/01/2025 Blood pressure systolic 120 mm Hg 03/01/2025 Weight 181 lbs 03/01/2025 BMI 34.2 kg/m2 03/01/2025 Encounters Encounter Location Date Provider Diagnosis [address] [facility] [address] [place] [address] 02/12/2025 Laurel Luu Herpes zoster without complication B02.9 ; Elevated blood pressure reading R03.0 and Obesity (BMI 30.0-34.9) E66.9 [address] [facility] [address] [place] [address] 03/01/2025 Raisa Dickson Acute bacterial conjunctivitis of both eyes H10.33 and Primary hypertension I10 Assessments Encounter Date Diagnosis (ICD Code) Assessment Notes Treatment Notes Treatment Clinical Notes Section Notes 02/12/2025 Herpes zoster without complication (ICD-10 - B02.9) Shingles: Care Instructions material was published Complete the entire course of medication as prescribed, even when symptoms have improved, to prevent a relapse of infection. Shingles (herpes zoster) causes pain and a blistered rash. The rash can appear anywhere on the body but will be on only one side of the body, the left or right. It will be in a band, a strip, or a small area. The pain can be very severe. Shingles can also cause tingling or itching in the area of the rash. The blisters scab over after a few days and heal in 2 to 4 weeks. Medicines can help you feel better and may help prevent more serious problems caused by shingles. Shingles is caused by the same virus that causes chickenpox. When you have chickenpox, the virus gets into your nerve roots and stays there (becomes dormant) long after you get over the chickenpox. If the virus becomes active again, it can cause shingles. Follow-up care is a yu part of your treatment and safety. Be sure to make and go to all appointments, and call your doctor if you are having problems. It's also a good idea to know your test results and keep a list of the medicines you take. How can you care for yourself at home?Be safe with medicines. Take your medicines exactly as prescribed. Call your doctor if you think you are having a problem with your medicine. Antiviral medicine helps you get better faster.Try not to scratch or pick at the blisters.Keep the blisters moist until they heal over. One way to do this is to cover them with a thin layer of petroleum jelly, such as Vaseline, and a nonstick bandage.Take an kllj-umz-zhinjcw pain medicine, such as acetaminophen (Tylenol), ibuprofen (Advil, Motrin), or naproxen (Aleve). Read and follow all instructions on the label.Avoid close contact with people until the blisters have healed. It is very important for you to avoid contact with anyone who has never had chickenpox or the chickenpox vaccine. Young babies and anyone who is or has a hard time fighting infection (such as someone with HIV, diabetes, or cancer) are especially at risk.When should you call for help?Call your doctor now or seek immediate medical care if: You have a new or higher fever.You have a severe headache and a stiff neck.You lose the ability to think clearly.The rash spreads to your forehead, nose, eyes, or eyelids.You have eye pain, or your vision gets worse.You have new pain in your face, or you can't move the muscles in your face.Blisters spread to new parts of your body.You have symptoms of infection, such as increased pain, swelling, warmth, or redness.Watch closely for changes in your health, and be sure to contact your doctor if: The rash has not healed after 2 to 4 weeks.You still have pain after the rash has healed. 02/12/2025 Elevated blood pressure reading (ICD-10 - R03.0) Learning About High Blood Pressure material was published Regularly follow up with the healthcare provider who manages your high blood pressure. Monitor your blood pressure as it should be less than 120/80. 03/01/2025 Acute bacterial conjunctivitis of both eyes (ICD-10 - H10.33) Pinkeye: Care Instructions material was published. Wash hands frequently and avoid touching the eyes as pinkeye is highly contagious. Return for re-evaluation if no improvement in one week. 03/01/2025 Primary hypertension (ICD-10 - I10) 02/12/2025 Obesity (BMI 30.0-34.9) (ICD-10 - E66.9) Learning About Healthy Weight material was published Continue healthy eating and exercise. May follow up with [facility] dietitians via a telehealth visit at [email or web address] to help with dietary changes to lower BMI. 02/12/2025 Other Valacyclovir material was published Visit summary given to and discussed with patient and/or parent who verbalizes understanding and agreement with plan of care. Thank you for your visit. Please look for the satisfaction survey that you will receive via email. We look forward to receiving your feedback regarding your experience at [facility]. NOTE to Provider of Record: MIPS recommendations for Pre Hypertensive Reading in the past 12 months (120-129 systolic or </= 80 diastolic): 1) Recommend to rescreen blood pressure in 2-6 months AND 2) Provide and document recommendations for non-pharmacologic interventions in the Preventative Medicine window, which may include Lifestyle recommendations, Physical Activity recommendations, Weight Reduction Recommendations, or Dietary Recommendations OR Provide and document a referral to alternate care provider Plan Of Treatment No Information Insurance Providers Payer Name Payer Address Payer Phone Subscriber Number Group Number Insured Name Patient Relationship to Insured Coverage Start Date Coverage End Date [facility] [address] [place] [address] [id number] Mildred Rede Self - patient is the insured Medical (General) History Medical History History ICD Code Hypothyroid E03.9 Primary hypertension I10 Surgical History Surgery Date(Month/Year) X 3 Thyroidectomy Hospitalization History Reason Date(Month/Year) childbirth surgeries
--- OUTSIDE RECORDS SUMMARY | 2025-07-12 13:50 | XMS_ITS | Encounter Summary ---
Author Organization [facility] Address [address] [facility] [place] [address] Care Team Providers Care Tc Operator Name Role Phone Julia Banegas MD Primary Care Provider [phone] Encounter Details Date Type Department Care Team (Late st Contact Info) Description 01/26/2025 Orders Only [facility] [address] [facility] [address] [place] [address] Julia Banegas MD [address] [place] [place] [address] Social History Tobacco Use Types [...] Date/Time Associated Diagnosis Comments SCANNED LABS Routine 01/23/2025 10:45 AM EDT documented in this encounter Results * SCANNED LABS (01/23/2025 10:45 AM EDT) us Julia Banegas MD LAB CHG PERFORMABLES Final Resul t documented in this encounter Visit Diagnoses Not on filedocumented in this encounter Care Teams Tc Operator Relationship Specialty Start Date End Date Julia Banegas MD PCP - General Family Medicine 12/19/23 documented as of this encounter
--- OUTSIDE RECORDS SUMMARY | 2025-07-12 13:50 | XMS_ITS | Clinical Summary ---
Author Organization [facility] Address [address] [place] [address] Care Team Providers Care Community Mental Health Social Worker Name Role Phone Julai Banegas MD Primary Care Provider [phone] Allergies Active Allergy Reactions Criticality Noted Date Comments Bacitracin 02/11/2024 Other Reaction(s): Unknown Medications metoprolol succinate XL (Toprol-XL) 50 MG 24 hr tablet Take 50 mg by mouth Daily 4 Active levothyroxine (Synthroid) 125 MCG tabletIndications:A cquired hypothyroidism Take 1 tablet (125 mcg) by mouth in the morning. Take before meals. 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 Primary hypertension 02/11/2024 Thyrotoxicosis 09/04/2010 Family History Medical History Relation Name Comments Diabetes Father Hypertension Father Thyroid disease Mother Relation Name Status Comments Father Mother Social History Tobacco Use Types Packs/Day Years Used Date Smoking Tobacco: Never Smokeless Tobacco: Never Tobacco Cessation:Counseling Given: Not Answered Alcohol Use Standard Drinks/Week Comments Not Currently 0 (1 standard drink = 0.6 oz pur e alcohol) Comments Unknown Sex and Gender Information Value Date Recorded Sex Assigned at Not on file Legal Sex Female 6:34 PM EDT Gender Identity Not on file Sexual Orientation Not on file Last Filed Vital Signs Vital Sign Reading Time Taken Comments Blood Pressure 135/89 01/12/2025 2:31 PM EDT Pulse 79 01/12/2025 2:31 PM EDT Temperature - - Respiratory Rate - - Oxygen Saturation - - Inhaled Oxygen Concentration - - Weight 86.2 kg (190 lb) 01/12/2025 2:31 PM EDT Height 154.9 cm (5' 1 ) 01/12/2025 2:31 PM EDT Body Mass Index 35.9 01/12/2025 2:31 PM EDT Plan of Treatment Health Maintenance Due Date Last Done Comments CT Colonography 1978 Colonoscopy 1978 Colorectal Cancer Screening 1978 FIT-DNA 1978 FIT 1978 FOBT 1978 Sigmoidoscopy 1978 Pap Smear 1999 Cervical Cancer Screening 2008 HPV/Cotest 2008 Mammogram 2018 Influenza Vaccine (#1) 2025 4, 08/06/2021, 08/16/2020, Additional [place] [address] [employer] Care Teams Community Mental Health Social Worker Relationship Specialty Start Date End Date Julia Banegas MD PCP - General Family Medicine 12/19/23
--- OUTSIDE RECORDS SUMMARY | 2025-07-12 13:50 | XMS_ITS | Encounter Summary ---
Author Organization [facility] Address [address] [place] [address] Care Team Providers Care Scaler Packer Name Role Phone Julia Banegas MD Primary Care Provider [phone] Encounter Details Date Type Department Care Team (Late st Contact Info) Description 06/22/2024 Clinisync Result Encounter [facility] External Department Unsolicited Jonathan Peña MD [address] [facility] [address] [place] [address] Social History Tobacco Use Types Packs/Day Years [...] Priority Date/Time Associated Diagnosis Comments US THYROID 06/22/2024 2:17 PM EDT documented in this encounter Results * US thyroid (06/22/2024 2:17 PM EDT) Anatomical Region Laterality Modality Head, Neck Ultrasound 06/22/2024 2:17 PM EDT Narrative 06/22/2024 2:20 PM EDT The [address] [address] Ultrasound Report Signed Patient: RHONDA REED MR#: [id number] : 1980 Acct:[id number] Age/Sex: 43 / F ADM Date: 06/21/24 Loc: US Attending Dr: Jonathan Peña M.D. Ordering Physician: Jonathan Peña M.D. Date of Service: 06/21/24 Procedure(s): US thyroid Accession Number(s): [id number] cc: Julia Banegas M.D.; Jonathan Peña M.D. [place] [id number] Patient Name: RHONDA REED MRN: [id number] date: 1980 Sex: F Assigned Patient Location: US Current Patient Location: Accession/Order Number: [id number] Exam Date: 06/21/2024 20:48 Report Date: 06/22/2024 14:17 At the request of: JONATHAN PEÑA Procedure: US thyroid EXAMINATION: US thyroid HISTORY: MALIGNANT TUMOR OF THYROID GLAND C73 COMPARISON: 01/28/2024 TECHNIQUE: Sonographic images of the thyroid gland were obtained. FINDINGS: The right thyroid lobe is surgically absent. Area of hypoechogenicity in the thyroid fossa measuring 1.3 x 0.5 x 0.9 cm likely postsurgical change or residual/recurrent thyroid tissue The thyroid isthmus measures 1 mm. No focal nodule The left thyroid lobe is very heterogeneous in echotexture measuring 3.7 x 1.8 x 1.6 cm. Single nodule. Nodule 1:1.5 x 1.3 x 1.4 cm. Mixed solid and cystic, hypoechoic, wide, smooth margins, no calcifications. TR 3 US/US thyroid IMPRESSION: Stable 1.5 cm left thyroid nodule TI-RADS: The [employer] TI-RADS committee's white paper recommendations for thyroid lesions classified as TR3 (mildly suspicious) are listed below: > 1.5 cm. Follow-up ultrasound in 1, 3, and 5 years. > 2.5 cm. FNA. J. Am Marcella Radiol 2017;14:587-595. Electronically authenticated by: HERMANN GUZMAN Date: 06/22/2024 14:17 Dictated By: Hermann Guzman M.D. Signed By: 06/22/24 1420 DD/ 1417 TD/TT: Genetic Supervisor: Procedure Note Radiology, Radiologist, - 06/22/2024 [place] [address] Ultrasound Report Signed Patient: RHONDA REED LMR#: [id number] : 1980Acct:[id number] Age/Sex: 43 / FADM Date: 06/21/24 Loc: US Attending Dr: Jonathan Peña M.D. Ordering Physician: Jonathan Peña M.D. Date of Service: 06/21/24 Procedure(s): US thyroid Accession Number(s): [id number] cc: Julia Banegas M.D.; Jonathan Peña M.D. The [place] [id number] Patient Name: RHONDA REED MRN: [id number] date: 1980 Sex: F Assigned Patient Location: US Current Patient Location: Accession/Order Number: [id number] Exam Date: 06/21/2024 20:48 Report Date: 06/22/2024 14:17 At the request of: JONATHAN PEÑA Procedure: US thyroid EXAMINATION: US thyroid HISTORY: MALIGNANT TUMOR OF THYROID GLAND C73 COMPARISON: 01/28/2024 TECHNIQUE: Sonographic images of the thyroid gland were obtained. FINDINGS: The right thyroid lobe is surgically absent. Area of hypoechogenicity inthe thyroid fossa measuring 1.3 x 0.5 x 0.9 cm likely postsurgical change or residual/recurrent thyroid tissue The thyroid isthmus measures 1 mm. No focal nodule The left thyroid lobe is very heterogeneous in echotexture measuring 3.7 x1.8 x 1.6 cm. Single nodule. Nodule 1:1.5 x 1.3 x 1.4 cm. Mixed solid and cystic, hypoechoic, wide,smooth margins, no calcifications. TR 3 US/US thyroid IMPRESSION: Stable 1.5 cm left thyroid nodule TI-RADS: [employer] TI-RADS committee's white paper recommendations for thyroid lesions classified as TR3 (mildly suspicious)are listed below: > 1.5 cm. Follow-up ultrasound in 1, 3, and 5 years. > 2.5 cm. FNA. J. Am Marcella Radiol 2017;14:587-595. Electronically authenticated by: HERMANN GUZMAN Date: 06/22/2024 14:17 Dictated By: Hermann Guzman M.D. Signed By:06/22/24 1420 DD/ 1417 TD/TT: Genetic Supervisor: us Jonathan Peña MD IMG US PROCEDURES Final Resul t documented in this encounter Visit Diagnoses Not on filedocumented in this encounter Care Teams Scaler Packer Relationship Specialty Start Date End Date Julia Banegas MD PCP - General Family Medicine 12/19/23 documented as of this encounter
--- OUTSIDE RECORDS SUMMARY | 2025-07-12 14:15 | XMS_ITS | CCD ---
Author Organization [facility] CliniSyne Care Team Providers Care Yellow Pages Space Salesperson Name Role Phone Julia Mitchell Unavailable PAULA, [...] Attending Unavailable MD Clifton Huntley Attending Provider [phone] Clifton Huntley Attending Unavailable Clifton Huntley Admitting Unavailable Julia Mitchell MD Primary Care Provider [phone] ANTOINESPATRIZIA Attending Unavailable TIMMIS, PATRIZIA Lee Attending Unavailable TIMMIS, PATRIZIA Lee Attending Unavailable TIMMIS, PATRIZIA Lee Attending Unavailable Allergies Allergy Classification Reported Allergen(s) Allergy Type Date of Onset Reaction(s) Facility (1 source) Bacitracin Drug Allergy 9 [facility] Repository (2 sources) patient allergy list reviewed by nurse or physicia Propensity to adverse reactions 9 Comment:Done [employer] Other (2 sources) Allergies Reconciled Propensity to adverse reactions Unknown [facility] Other (8 sources) Bacitracin Drug Allergy 4 [facility] Work Phone: Medications Current Medications Medication Drug Class(es) Dates Sig (Normalized) Sig (Original) levothyroxine sodium 0.125 mg oral tablet (17 sources) l-Thyroxine Start: 02-24-2024 End: 01-26-2026 take 1 tablet by mouth once daily in the morning Levothyroxine 125 mcg tablet Active 125 MCG PO Daily January 24, 2025 12:00am FreeText[employer] tablet in the morning on an empty stomach Orally Once a day; Note: Source Status: Taking; Provider: Paula Dumont ( ) Start: 08-12-2017 End: 02-22-2025 Levothyroxine 50 mcg tablet Discontinued TABLET August 12, 2017 12:00am February 22, 2025 3:05pm take 1 tablet by stefan th once [...] succinate 50 mg extended release oral tablet (20 sources) beta-Adrenergic Dustin Start: 01-20-2025 take 1 tablet by mouth once daily Metoprolol Succinate 50 mg tablet extended release 24 hr Active 0 .ROUTE .COMPLEX January 20, 2025 2:35pm TAKE 1 TABLET BY MOUTH EVERY DAY Start: 07-28-2024 End: 01-20-2025 take 1 tablet by mouth once daily Metoprolol Succinate 50 mg tablet extended release 24 hr Discontinued 0 .ROUTE .COMPLEX July 28, 2024 1:22pm January 20, 2025 2:35pm TAKE 1 TABLET BY MOUTH EVERY DAY Start: 01-22-2024 End: 07-28-2024 take 1 tablet by mouth once daily Metoprolol Succinate 50 mg tablet extended release 24 hr Discontinued 0 .ROUTE .COMPLEX January 22, 2024 2:33pm July 28, 2024 1:22pm TAKE 1 TABLET BY MOUTH EVERY DAY Start: 01-22-2024 take 1 tablet by stefan th once daily Metoprolol Succinate Active 0 .ROUTE .COMPLEX January 22, 2024 2:33pm TAKE 1 TABLET BY MOUTH EVERY DAY Start: 01-22-2024 End: 01-22-2024 take 1 tablet by mouth once daily Metoprolol Succinate 50 mg tablet extended release 24 hr Discontinued 50 MG PO Daily January 22, 2024 [...] (Normalized) Sig (Original) 21 day ethinyl estradiol 0.633156 mg/hr / etonogestrel 0.005 mg/hr vaginal system (5 sources) Progestin, Estrogen NuvaRing 0.12-0.015 MG/24HR [address] for 3 weeks, remove, and replace with a new ring after 7 day break Vaginal Not-Taking Etonogestrel-Ethinyl Estradiol 0.12-0.015 mg/24 hr ring (1 source) Start: 01-24-2025 End: 02-22-2025 Etonogestrel-Ethin yl Estradiol 0.12-0.015 mg/24 hr ring Discontinued VAG RING VAGINAL January 24, 2025 12:00am February 22, 2025 3:04pm FreeTextSi ring leave in place for 3 weeks, remove, and replace with a new ring after 7 day break Vaginal; Note: Source Status: Not-Takingundefine dPRN; Provider: Paula Dumont ( ) ibuprofen 600 mg oral tablet (2 sources) Nonsteroidal Anti-inflammatory Drug Start: 08-14-2017 End: 02-22-2025 take 1 tablet by mouth every six hours Ibuprofen 600 mg Tablet Discontinued 600 MG PO Every 6 hours 01 06August 14, 2017 12:00am February 22, 2025 3:04pm traMADol hydrochloride 50 mg oral tablet (2 sources) Opioid Agonist Start: 08-14-2017 End: 02-22-2025 take 1 tablet by mouth every four hours as needed for pain Tramadol 50 mg Tablet Discontinued 50 MG PO Q4H as needed for Pain 01 06August 14, 2017 12:00am February 22, 2025 3:05pm Problems Active Problems Problem Classification Problem Date Documented Date Episodic/Chronic Anxiety disorders (8 sources) Anxiety; Translations: [Anxiety disorder, unspecified] Chronic Cancer of thyroid (12 sources) Malignant tumor of thyroid gland; Translations: [...] contraceptive device] Resolved: 04-10-2022 Episodic Essential hypertension (17 sources) Hypertensive disorder; Translations: [Essential (primary) hypertension] Onset: 02-11-2024 Chronic Other ear and sense organ disorders (8 sources) Chronic non-infective otitis externa; Translations: [Other otitis externa, bilateral] Onset: 02-11-2024 02-11-2024 Chronic Other nervous system disorders (8 sources) Carpal tunnel syndrome of left wrist; Translations: [Carpal tunnel syndrome, left upper limb] Onset: 02-11-2024 02-11-2024 Chronic Other nervous system disorders (8 sources) Carpal tunnel syndrome of right wrist; Translations: [Carpal tunnel syndrome, right upper limb] Onset: 02-11-2024 02-11-2024 Chronic Other nutritional; endocrine; and metabolic disorders (8 sources) Obesity; Translations: [Obesity, unspecified] Chronic Other nutritional; endocrine; and metabolic disorders (9 sources) Obese class I; Translations: [Body mass index (BMI) 33.0-33.9, adult] Onset: 01-12-2025 01-12-2025 Chronic Other and delivery including normal (2 sources) test positive; Translations: [Encounter for test, result positive] Episodic Other screening for suspected conditions (not mental disorders or infectious disease) (12 sources) Encounter for screening mammogram for malignant [...] Test Name Value Interpretation Reference Range Facility Basophils Auto (Bld) [#/Vol] on 01-22-2025 Basophils (Bld) [#/Vol] Automated basophil count 0.0-0.1 [facility] Basophils/100 WBC Auto (Bld) on 01-22-2025 Basophils/100 WBC (Bld) Automated basophil % 0.2-2.0 [facility] Cholesterol in LDL Calc [Mas s/Vol]on 01-22-2025 Cholesterol in LDL [Mass/Vol] Cholesterol in LDL [Mass/volume] in Serum or Plasma by calculation [facility] Comment on above: <100 mg/dl [id number] 0-129 mg/dl NEAR OR ABOVE [id number] mg/dl BORDERLINE ZFIX625-118 mg/dl HIGH>190 mg/dl VERY HIGH Cholesterol in VLDL Calc [Ma ss/Vol]on 01-22-2025 Cholesterol in VLDL [Mass/Vol] Cholesterol in VLDL [Mass/volume] in Serum or Plasma by calculation [facility] Eosinophils/100 WBC Auto (Bl d)on 01-22-2025 Eosinophils/100 WBC (Bld) Automated eosinophil % 0.9-7.0 [facility] Erythrocyte distribution wid th Auto (RBC) [Ratio]on 01-22-2025 Erythrocyte distribution width (RBC) [Ratio] Erythrocyte distribution width [Ratio] by Automated count 11.0-15.0 [facility] Estimated glomerular filtrat ion rate (GFR) non- Americanon 01-22-2025 GFR/1.73 sq M.predicted among non-blacks MDRD (S/P/Bld) [Vol rate/Area] Estimated glomerular filtration rate (GFR) non- >=60 mL/min/1.73m 2 [facility] Globulin Calc (S) [Mass/Vol] on 01-22-2025 Globulin (S) [Mass/Vol] Serum globulin measurement by calculation (mass/volume) [facility] Glucose mean value [Mass/vol ume] in Blood Estimated from glycated hemoglobinon 01-22-2025 Average glucose Estimated from glycated hemoglobin (Bld) [Mass/Vol] Glucose mean value [Mass/volume] in Blood Estimated from glycated hemoglobin [facility] Hematocrit Auto (Bld) [Volum e fraction]on 01-22-2025 Hematocrit (Bld) [Volume fraction] Hematocrit [Volume Fraction] of Blood by Automated count 36.0-48.0 [facility] Hemoglobin A1c percentageon 01-22-2025 HbA1c (Bld) [Mass fraction] Hemoglobin A1c percentage 4.5-6.2 [facility] Comment on above: ADA RECOMMENDED LIMI T 4.0 - 6.0ADA THERAPEUTIC TARGET < 7.0ACTION SUGGESTED> 7.0 Hemoglobin [Mass/volume] in Bloodon 01-22-2025 Hemoglobin (Bld) [Mass/Vol] Hemoglobin [Mass/volume] in Blood 12.0-16.0 [facility] Laboratory - Chemistry and C hemistry - challengeon 01-22-2025 Albumin [Mass/Vol] 3.4 g/dL 3.4-5.0 [facility] ALP [Catalytic activity/Vol] 74 U/L 46-116 [facility] ALT [Catalytic activity/Vol] 28 U/L 14-59 [facility] AST [Catalytic activity/Vol] 19 U/L 15-37 [facility] Bilirubin [Mass/Vol] 0.6 mg/dL 0.2-1.0 [facility] Calcium [Mass/Vol] 8.7 mg/dL 8.5-10.1 [facility] Chloride [Moles/Vol] 106 mmol/L 98-107 [facility] Cholesterol [Mass/Vol] 132 mg/dL <=200 [facility] Cholesterol in HDL [Mass/Vol] 45 mg/dL 40-60 [facility] Comment on above: > or =60 mg/dl - LOW CARDIOVASCULAR RISK<40 mg/dl - HIGH CARDIOVASCULAR RISK CO2 [Moles/Vol] 29.0 mmol/L 21.0-32.0 [facility] Creatinine [Mass/Vol] 0.79 mg/dL 0.55-1.02 [facility] GFR/1.73 sq M.predicted MDRD (S/P/Bld) [Vol rate/Area] mL/min/{1.73_m2} >=60 mL/min/1.73m 2 [facility] Glucose [Mass/Vol] 100 mg/dL 74-106 [facility] Potassium [Moles/Vol] 4.0 mmol/L 3.5-5.1 [facility] Protein [Mass/Vol] 7.5 g/dL 6.4-8.2 [facility] Sodium [Moles/Vol] 140 mmol/L 136-145 [facility] Triglyceride [Mass/Vol] 59 mg/dL <=150 [facility] TSH Qn 0.446 m[IU]/L 0.358-3.740 [facility] Urea nitrogen [Mass/Vol] 12.0 mg/dL 7.0-18.0 [facility] Urea nitrogen/Creatinin e [Mass ratio] 15.2 mg/mg [facility] Laboratory - Hematology and Cell countson 01-22-2025 Immature granulocytes/100 WBC (Bld) 0.2 % 0.0-0.5 [facility] Leukocytes [#/volume] correc tiffany for nucleated erythrocytes in Blood by Automated counon 01-22-2025 WBC corrected for nucl RBC Auto (Bld) [#/Vol] Leukocytes [#/volume] corrected for nucleated erythrocytes in Blood by Automated coun 4.0-11.0 [facility] Lymphocytes Auto (Bld) [#/Vo l]on 01-22-2025 Lymphocytes (Bld) [#/Vol] Lymphocytes [#/volume] in Blood by Automated count Low 1.2-3.8 [facility] Lymphocytes/100 WBC Auto (Bl d)on 01-22-2025 Lymphocytes/100 WBC (Bld) Lymphocytes/100 leukocytes in Blood by Automated count 20.5-60.0 [facility] MCH Auto (RBC) [Entitic mass ]on 01-22-2025 MCH (RBC) [Entitic mass] MCH [Entitic mass] by Automated count 26.7-34.0 [facility] MCHC Auto (RBC) [Mass/Vol]on 01-22-2025 MCHC (RBC) [Mass/Vol] MCHC [Mass/volume] by Automated count 29.9-35.2 [facility] MCV Auto (RBC) [Entitic vol] on 01-22-2025 MCV (RBC) [Entitic vol] MCV [Entitic volume] by Automated count 81.0-99.0 [facility] Monocytes Auto (Bld) [#/Vol] on 01-22-2025 Monocytes (Bld) [#/Vol] Automated blood monocyte count 0.3-0.8 [facility] Monocytes/100 WBC Auto (Bld) on 01-22-2025 Monocytes/100 WBC (Bld) Automated monocyte % 1.7-12.0 [facility] Neutrophils Auto (Bld) [#/Vo l]on 01-22-2025 Neutrophils (Bld) [#/Vol] Neutrophils [#/volume] in Blood by Automated count 1.4-6.5 [facility] Neutrophils/100 WBC Auto (Bl d)on 01-22-2025 Neutrophils/100 WBC (Bld) Automated neutrophil % 43.0-75.0 [facility] No Panel Informationon 01-22 Eosinophils # (Auto) 0.1 10 3/uL 0.0-0.7 [facility] Immature Granulocyte # (Auto) 0.01 10 3/uL 0.00-0.03 [facility] Platelet mean volume Auto (B ld) [Entitic vol]on 01-22-2025 Platelet mean volume (Bld) [Entitic vol] Platelet mean volume [Entitic volume] in Blood by Automated count 9.5-13.5 [facility] Platelets Auto (Bld) [#/Vol] on 01-22-2025 Platelets (Bld) [#/Vol] Platelets [#/volume] in Blood by Automated count 150-450 [facility] RBC Auto (Bld) [#/Vol]on RBC (Bld) [#/Vol] Erythrocytes [#/volu me] in Blood by Automated count 4.20-5.40 [facility] Serum or plasma albumin/glob ulin mass ratioon 01-22-2025 Albumin/Globulin [Mass ratio] Serum or plasma albumin/globulin mass ratio [facility] Serum or plasma anion gap de terminationon 01-22-2025 Anion gap [Moles/Vol] Serum or plasma anion gap determination [facility] Serum or plasma total choles terol/high density lipoprotein (HDL) cholesterol mass kenia 01-22-2025 Cholesterol.total/ Cholesterol in HDL [Mass ratio] Serum or plasma total cholesterol/high density lipoprotein (HDL) cholesterol mass rat [facility] Comment on above: 3.3 - 4.4 LOW RISK4. 4 - 7.1 AVERAGE RISK7.1 - 11.0 MODERATE RISK>11.0 HIGH RISK [place] [address] Ultrasound Report Signed Patient: MILDRED REED MR#: [id number] : 1980 Acct:[id number] Age/Sex: 44 / F ADM Date: 12/16/24 Loc: US Attending Dr: Patrizia Fernández M.D. Ordering Physician: Patrizia Fernández M.D. Date of Service: 12/16/24 Procedure(s): US thyroid Accession Number(s): [id number] cc: Julia Mitchell M.D.; Patrizia Fernández M.D. [address] [address] Patient Name: MILDRED REED MRN: [id number] date: 1980 Sex: F Assigned Patient Location: US Current Patient Location: Accession/Order Number: [id number] Exam Date: 12/16/2024 18:30 Report Date: 12/17/2024 [...] Signed By: 12/17/24 0751 DD/ 0748 TD/TT: Proposal Lead Writer: [facility] Radiology, Radiologiris godoy MD - 12/17/2024 [place] [address] Ultrasound Report Signed Patient: MILDRED REED MR#: [id number] : 1980 Acct:[id number] Age/Sex: 44 / F ADM Date: 12/16/24 Loc: US Attending Dr: Patrizia Fernández M.D. Ordering Physician: Patrizia Fernández M.D. Date of Service: 12/16/24 Procedure(s): US thyroid Accession Number(s): [id number] cc: Julia Mitchell M.D.; Patrizia Fernández M.D. [facility] [place] [address] Patient Name: MILDRED REED MRN: [facility]:[id number] date: 1980 Sex: F Assigned Patient Location: US Current Patient Location: Accession/Order Number: [id number] Exam Date: 12/16/2024 18:30 Report Date: 12/17/2024 [...] Signed By: 12/17/24 0751 DD/ 0748 TD/TT: Proposal Lead Writer: [facility] Rad[facility] Study observation (narrative) [facility] US Thyroid glandOrdered By: Radiologist Radiology on 12-17-2024 [facility] [place] Work Phone: Gor 03-01-2024 L Specimen: [id number] Re ceived: 03/03/24 Status: HALIMAJing Req Num: [id number] Spec Type: Cytology Subm Dr: Clifton Huntley MD Tissues: A FNA SLIDES NOPATH (LT THYROID NOD) Procedures: Cyto Int and Re, PAPSTN/5 Age/ Patient Sex Location Account Attending Physician Mildred Reed 43/F LABELL [id number] Clifton Huntley MD SPEC NUM: [id number] RECD: 03/03/24 STATUS: PRACHI KOVACSQ NUM: [id number] AVA: 03/01/24- SUBM DR: Clifton Huntley MD ENTERED: 03/03/[address]: Felisa Lizama HILARY H MD SPEC TYPE: Cytology DEPT: LYNSEY NCYT ENTERED BY: [id number] RECV BY: [id number] ORDERED: Cyto Int and Re, PAPSTN/5 ORDERED: Cyto Int and Re, PAPSTN/5 Pathological Diagnosis Left inferior thyroid nodule, ultrasound?guided fine-needle aspiration: ? Non?diagnostic ([place] category 1). ? 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 Gross Description Received in Cytolyt labeled with the patient's name, date of and left thyroid nodule, inferior per requisition is < 1 ml colorless clear fixed fluid. 1 Thin Prep slides are prepared. 4 spray fixed smears to be stained pap are additionally received. (ME/nh) CPT Codes 39546 -------- -------- Specimen: [id number] Received: 03/03/24-1257 Status: PRACHI Lacy Num: [id number] Spec Type: Cytology Subm Dr: Clifton Huntley MD Tissues: A FNA SLIDES NOPATH (LT THYROID NOD) Procedures: Cyto Int and Re, PAPSTN/5 -------- Patient: Mildred Reed [id number] (Continued) -------- Signed (signature on file) Hermann Dias MD 03/04/24 0939 Normal [facility] Basophils Auto (Bld) [#/Vol] on 02-07-2024 Basophils (Bld) [#/Vol] 0.0 10 3/uL 0.0-0.1 [facility] Basophils/100 WBC Auto (Bld) on 02-07-2024 Basophils/100 WBC (Bld) 0.6 % 0.2-2.0 [facility] Cholesterol in LDL Calc [Mas s/Vol]on 02-07-2024 Cholesterol in LDL [Mass/Vol] 91.6 mg/dL [facility] Comment on above: <100 mg/dl SHRUPTR27 0-129 mg/dl NEAR OR ABOVE DACJOEL580-197 mg/dl BORDERLINE NMEF428-257 mg/dl HIGH>190 mg/dl VERY HIGH Cholesterol in VLDL Calc [Ma ss/Vol]on 02-07-2024 Cholesterol in VLDL [Mass/Vol] 19.4 mg/dL [facility] Eosinophils/100 WBC Auto (Bl d)on 02-07-2024 Eosinophils/100 WBC (Bld) 2.7 % 0.9-7.0 [facility] Erythrocyte distribution wid th Auto (RBC) [Ratio]on 02-07-2024 Erythrocyte distribution width (RBC) [Ratio] 12.7 % 11.0-15.0 [facility] Estimated glomerular filtrat ion rate (GFR) non- Americanon 02-07-2024 GFR/1.73 sq M.predicted among non-blacks MDRD (S/P/Bld) [Vol rate/Area] mL/min/{1.73_m2} >=60 [facility] Globulin Calc (S) [Mass/Vol] on 02-07-2024 Globulin (S) [Mass/Vol] 4.1 g/dL [facility] Glucose mean value [Mass/vol ume] in Blood Estimated from glycated hemoglobinon 02-07-2024 Average glucose Estimated from glycated hemoglobin (Bld) [Mass/Vol] 111 mg/dL [facility] Hematocrit Auto (Bld) [Volum e fraction]on 02-07-2024 Hematocrit (Bld) [Volume fraction] 41.4 % 36.0-48.0 [facility] Hemoglobin [Mass/volume] in Bloodon 04-06-2024 Hemoglobin (Bld) [Mass/Vol] 13.6 g/dL 12.0-16.0 [facility] Laboratory - Chemistry and C hemistry - challengeon 02-07-2024 Albumin [Mass/Vol] 3.4 g/dL 3.4-5.0 [facility] ALP [Catalytic activity/Vol] 69 U/L 46-116 [facility] ALT [Catalytic activity/Vol] 29 U/L 14-59 [facility] AST [Catalytic activity/Vol] 16 U/L 15-37 [facility] Bilirubin [Mass/Vol] 0.5 mg/dL 0.2-1.0 [facility] Calcium [Mass/Vol] 8.9 mg/dL 8.5-10.1 [facility] Chloride [Moles/Vol] 104 mmol/L 98-107 [facility] Cholesterol [Mass/Vol] 154 mg/dL <=200 [facility] Cholesterol in HDL [Mass/Vol] 43 mg/dL 40-60 [facility] Comment on above: > or =60 mg/dl - LOW CARDIOVASCULAR RISK<40 mg/dl - HIGH CARDIOVASCULAR RISK CO2 [Moles/Vol] 30.2 mmol/L 21.0-32.0 [facility] Creatinine [Mass/Vol] 0.88 mg/dL 0.55-1.02 [facility] GFR/1.73 sq M.predicted MDRD (S/P/Bld) [Vol rate/Area] mL/min/{1.73_m2} >=60 [facility] Glucose [Mass/Vol] 94 mg/dL 74-106 [facility] Potassium [Moles/Vol] 4.1 mmol/L 3.5-5.1 [facility] Protein [Mass/Vol] 7.5 g/dL 6.4-8.2 [facility] Sodium [Moles/Vol] 139 mmol/L 136-145 [facility] Triglyceride [Mass/Vol] 97 mg/dL <=150 [facility] TSH Qn 1.455 m[IU]/L 0.358-3.740 [facility] Urea nitrogen [Mass/Vol] 13.0 mg/dL 7.0-18.0 [facility] Urea nitrogen/Creatinin e [Mass ratio] 14.8 mg/mg [facility] Laboratory - Hematology and Cell countson 02-07-2024 HbA1c (Bld) [Mass fraction] 5.5 % 4.5-6.2 [facility] Comment on above: ADA RECOMMENDED LIMI T 4.0 - 6.0ADA THERAPEUTIC TARGET < 7.0ACTION SUGGESTED> 7.0 Immature granulocytes/100 WBC (Bld) 0.2 % 0.0-0.5 [facility] Leukocytes [#/volume] correc tiffany for nucleated erythrocytes in Blood by Automated counon 02-07-2024 WBC corrected for nucl RBC Auto (Bld) [#/Vol] 4.8 10 3/uL 4.0-11.0 [facility] Lymphocytes Auto (Bld) [#/Vo l]on 02-07-2024 Lymphocytes (Bld) [#/Vol] 1.4 10 3/uL 1.2-3.8 [facility] Lymphocytes/100 WBC Auto (Bl d)on 02-07-2024 Lymphocytes/100 WBC (Bld) 28.2 % 20.5-60.0 [facility] MCH Auto (RBC) [Entitic mass ]on 02-07-2024 MCH (RBC) [Entitic mass] 29.4 pg 26.7-34.0 [facility] MCHC Auto (RBC) [Mass/Vol]on 02-07-2024 MCHC (RBC) [Mass/Vol] 32.9 g/dL 29.9-35.2 [facility] MCV Auto (RBC) [Entitic vol] on 02-07-2024 MCV (RBC) [Entitic vol] 89.4 fL 81.0-99.0 [facility] Monocytes Auto (Bld) [#/Vol] on 02-07-2024 Monocytes (Bld) [#/Vol] 0.4 10 3/uL 0.3-0.8 [facility] Monocytes/100 WBC Auto (Bld) on 02-07-2024 Monocytes/100 WBC (Bld) 8.5 % 1.7-12.0 [facility] Neutrophils Auto (Bld) [#/Vo l]on 02-07-2024 Neutrophils (Bld) [#/Vol] 2.9 10 3/uL 1.4-6.5 [facility] Neutrophils/100 WBC Auto (Bl d)on 02-07-2024 Neutrophils/100 WBC (Bld) 59.8 % 43.0-75.0 [facility] No Panel Informationon 02-06 Eosinophils # (Auto) 0.1 10 3/uL 0.0-0.7 [facility] Immature Granulocyte # (Auto) 0.01 10 3/uL 0.00-0.03 [facility] Platelet mean volume Auto (B ld) [Entitic vol]on 02-07-2024 Platelet mean volume (Bld) [Entitic vol] 9.7 fL 9.5-13.5 [facility] Platelets Auto (Bld) [#/Vol] on 02-07-2024 Platelets (Bld) [#/Vol] 260 10 3/uL 150-450 [facility] RBC Auto (Bld) [#/Vol]on RBC (Bld) [#/Vol] 4.63 10 6/uL 4.20-5.40 [facility] Serum or plasma albumin/glob ulin mass ratioon 02-07-2024 Albumin/Globulin [Mass ratio] 0.8 {ratio} [facility] Serum or plasma anion gap de terminationon 02-07-2024 Anion gap [Moles/Vol] 8.9 mmol/L [facility] Serum or plasma total choles terol/high density lipoprotein (HDL) cholesterol mass kenia 02-07-2024 Cholesterol.total/ Cholesterol in HDL [Mass ratio] 3.6 {ratio} [facility] Comment on above: 3.3 - 4.4 LOW RISK4. 4 - 7.1 AVERAGE RISK7.1 - 11.0 MODERATE RISK>11.0 HIGH RISK No Panel Informationon 12-17 Factor II DNA Analysis Comment Comment . [facility] Comment on above: Technical Component performed at [facility] RTPProfessional Component performed by:Zachary Bernal, Ph.D., FACMGDirector, Molecular [id number] [place] [id number] at: [facility] [id number] [place], [place] [id number] Director: Derick Ma [facility], Phone: [phone] Prothrombin gene [id number] mut ation detectionon 12-17-2023 F2 gene targeted mutation analysis Ti Almanza (Bld/Tiss) Comment . [facility] Comment on above: Result: c.*97G>A - [...] in theF2 gene and a c.1601G>A (p. Uav818Hiy) variant in the F5 gene(commonly referred to as Factor V Leiden) have an approximately 20-fold increased risk for venous thromboembolism. Risks are likely karol even higher in more complex genotype combinations involving theF2 c.*97G>A variant and Factor V Leiden (PMID: 99149518). Additionalrisk factors include but are not limited [...] for health care providers to discussresults at [phone] ([phone]).Test Details:Variant analyzed: c.*97G>A, previously referred to as [id number]/Limitations:DNA analysis of the F2 gene (NM_000506.5) was [...] was developed and its performance characteristics determinedby [employer]. It has not been cleared or approved by the Food and DrugAdministration.References:Karma De León, Kim JOINER, Lul R, Dale WW, Igor JH; [facility] ProfessionalPractice and Guidelines Committee. Addendum: [place] [employer] consensus statement on factor V Leiden mutationtesting. [employer]. 2020Jan 05. doi: 10.1038/s89385-149-43491-n.PMID: 75387087.Amber KO. Prothrombin Thrombophilia. 2005May 27[Updated 2020Dec 07]. In: Antoni MP, Kristin HH, Chico RA, et al.,editors. Alpesh(R) [Internet]. [place] ([place]): [facility]; [phone]. Available from:https://www.ncbi.nlm.nih.gov/books/SXJ3066/Melo De León, Kim JOINER, Esteban X, Janusz B, Grace EB, Genesis P, Tremaine CS;[facility] Laboratory Nutrition Assistant Committee. Venous thromboembolismlaboratory testing (factor V Leiden and factor II c.*97G>A),2018 update: a technical standard of the [place] [employer] and [employer] ([facility]). [employer]. 2018 Oct;20(12):1542-5019.doi: [id number]. Epub 2017Aug 07. PMID: [id number]. US THYROIDon 01-26-2023 US THYROID EXAMINATION: US [...] left thyroid TR 3 nodule TI-RADS: [employer] [place] [employer] TI-RADS committee's white paper recommendations for thyroid lesions classified as TR3 (mildly suspicious) are listed below: > 1.5 cm. Follow-up ultrasound in 1, 3, and 5 years. > 2.5 cm. FNA. J. Am Ava Radiol 2017;14:587-595. Electronically authenticated by: HERMANN GUZMAN Date: 2023-01-26 09:07 Normal [facility] CBC AUTO DIFFon 11-16-2022 BASO # 0.0 103/ul Normal 0.0-0.1 [facility] Comment on above: Performed By: #### C BC #### [facility] [address] [place] [address] Dr. Chanel Manriquez Basophils/100 WBC (Bld) 0.6 % Normal 0.2-2.0 [facility] Comment on above: Performed By: #### C BC #### [facility] [address] [place] [address] Dr. Chanel Manriquez EO # 0.3 103/ul Normal 0.0-0.7 [facility] Comment on above: Performed By: #### C BC #### [facility] [address] [place] [address] Dr. Chanel Manriquez Eosinophils/100 WBC (Bld) 4.9 % Normal 0.9-7.0 [facility] Comment on above: Performed By: #### C BC #### [facility] [address] [place] [address] Dr. Chanel Manriquez Erythrocyte distribution width (RBC) [Ratio] 13.1 % Normal 11.0-15.0 [facility] Comment on above: Performed By: #### C BC #### [facility] [address] [place] [address] Dr. Chanel Manriquez Hematocrit (Bld) [Volume fraction] 39.7 % Normal 36.0-48.0 [facility] Comment on above: Performed By: #### C BC #### [facility] [address] [place] [address] Dr. Chanel Manriquez Hemoglobin (Bld) [Mass/Vol] 13.5 g/dL Normal 12.0-16.0 [facility] Comment on above: Performed By: #### C BC #### [facility] [address] [place] [address] Dr. Chanel Manriquez IG # 0.02 10e3/ul Normal 0.00-0.03 [facility] Comment on above: Performed By: #### C BC #### [facility] [address] [place] [address] Dr. Chanel Manriquez IG % 0.3 % Normal 0.0-0.5 [facility] Comment on above: Performed By: #### C BC #### [facility] [address] [place] [address] Dr. Chanel Manriquez LYMPH # 1.2 103/ul Normal 1.2-3.8 [facility] Comment on above: Performed By: #### C BC #### [facility] [address] [place] [address] Dr. Chanel Manriquez Lymphocytes/100 WBC (Bld) 18.5 % Critically low 20.5-60.0 [facility] Comment on above: Performed By: #### C BC #### [facility] [address] [place] [address] Dr. Chanel Manriquez MANUAL DIFF REQ NO Normal [facility] Comment on above: Performed By: #### C BC #### [facility] [address] [place] [address] Dr. Chanel Manriquez MCH (RBC) [Entitic mass] 28.9 pg Normal 26.7-34.0 [facility] Comment on above: Performed By: #### C BC #### [facility] [address] [address] [address] Chanel Manriquez MCHC (RBC) [Mass/Vol] 34.0 g/dL Normal 29.9-35.2 [facility] Comment on above: Performed By: #### C BC #### [facility] [address] [address] [address] Chanel Manriquez MCV (RBC) [Entitic vol] 85.0 fL Normal 81.0-99.0 [facility] Comment on above: Performed By: #### C BC #### [facility] [address] [address] [address] Chanel Manriquez MONO # 0.7 103/ul Normal 0.3-0.8 [facility] Comment on above: Performed By: #### C BC #### [facility] [address] [place] [address] Dr. Chanel Manriquez Monocytes/100 WBC (Bld) 10.7 % Normal 1.7-12.0 [facility] Comment on above: Performed By: #### C BC #### [facility] [address] [place] [address] Dr. Chanel Manriquez NEUT # 4.1 103/ul Normal 1.4-6.5 [facility] Comment on above: Performed By: #### C BC #### [facility] [address] [address] [address] Chanel Manriquez Neutrophils/100 WBC (Bld) 65.0 % Normal 43.0-75.0 [facility] Comment on above: Performed By: #### C BC #### [facility] [address] [address] [address] Chanel Manriquez Platelet mean volume (Bld) [Entitic vol] 9.3 fL Critically low 9.5-13.5 [facility] Comment on above: Performed By: #### C BC #### [facility] [address] [address] [address] Chanel Manriquez PLT 271 103/ul Normal 150-450 [facility] Comment on above: Performed By: #### C BC #### [facility] [address] [address] [address] Chanel Manriquez RBC 4.67 106/ul Normal 4.20-5.40 [facility] Comment on above: Performed By: #### C BC #### [facility] [address] [address] [address] Chaenl Manriquez WBC 6.3 103/ul Normal 4.0-11.0 [facility] Comment on above: Performed By: #### C BC #### [facility] [address] [place] [address] Dr. Chanel Manriquez GLYCOHEMOGLOBIN A1Con 2022 ADA RECOMMENDATION SEE BELOW Normal [facility] Comment on above: Result Comment: ADA RECOMMENDED LIMIT 4.0 - 6.0 ADA THERAPEUTIC TARGET < 7.0 ACTION SUGGESTED > 7.0 Performed By: #### A 1C #### [facility] [address] [place] [address] Dr. Chanel Manriquez Glucose [Mass/Vol] 108 mg/dL Normal [facility] [place] Comment on above: Performed By: #### A 1C #### [facility] [address] [place] [address] Dr. Chanle Manriquez HbA1c (Bld) [Mass fraction] 5.4 % Normal 4.5-6.2 [facility] Comment on above: Performed By: #### A 1C #### [facility] [address] [place] [address] Dr. Chanel Manriquez LIPID PROFILEon 11-16-2022 CHOL-HDL RATIO NORM SEE BELOW Normal [facility] Comment on above: Result Comment: 3.3 - 4.4 LOW RISK 4.4 - 7.1 AVERAGE RISK 7.1 - 11.0 MODERATE RISK >11.0 HIGH RISK Performed By: #### T SH, CMP, LIPID #### [facility] [address] [place] [address] Dr. Chanel Manriquez Cholesterol [Mass/Vol] 135 mg/dL Normal <=200 [facility] Comment on above: Performed By: #### T SH, CMP, LIPID #### [facility] [address] [address] [address] Chanel Manriquez Cholesterol in HDL [Mass/Vol] 40 mg/dL Normal 40-60 [facility] Comment on above: Performed By: #### T SH, CMP, LIPID #### [facility] [address] [address] [address] Chanel Manriquez Cholesterol in LDL [Mass/Vol] 80.4 mg/dL Normal [facility] Comment on above: Performed By: #### T SH, CMP, LIPID #### [facility] [address] [address] [address] Chanel Manriquez Cholesterol.total/ Cholesterol in HDL [Mass ratio] 3.4 {ratio} Normal [facility] Comment on above: Performed By: #### T SH, CMP, LIPID #### [facility] [address] [address] [address] Chanel Manriquez HDL NORMAL > or = 60 mg/dl - LO W CARDIOVASCULAR RISK <40 mg/dl - HIGH CARDIOVASCULAR RISK Normal [facility] Comment on above: Performed By: #### T SH, CMP, LIPID #### [facility] [address] [address] [address] Chanel Manriquez LDL CALC NORMAL SEE BELOW Normal [facility] Comment on above: Result Comment: <100 mg/dl OPTIMAL 100 - 129 mg/dl NEAR OR ABOVE OPTIMAL 130 - 159 mg/dl BORDERLINE HIGH 160 - 189 mg/dl HIGH >190 mg/dl VERY HIGH Performed By: #### T SH, CMP, LIPID #### [facility] [address] [address] [address] Chanel Manriquez Triglyceride [Mass/Vol] 73 mg/dL Normal <=150 [facility] Comment on above: Performed By: #### T SH, CMP, LIPID #### [facility] [address] [place] [address] Dr. Chanel Manriquez VLDL CALC 14.6 mg/dL Normal [facility] Comment on above: Performed By: #### T SH, CMP, LIPID #### [facility] [address] [address] [address] Chanel Manriquez PROF 14(COMP METB)on 023 Albumin [Mass/Vol] 3.4 g/dL Normal 3.4-5.0 [facility] Comment on above: Performed By: #### T SH, CMP, LIPID #### [facility] [address] [address] [address] Chanel Manriquez Albumin/Globulin [Mass ratio] 0.9 {ratio} Normal [facility] Comment on above: Performed By: #### T SH, CMP, LIPID #### [facility] [address] [address] [address] Chanel Manriquez ALP [Catalytic activity/Vol] 62 U/L Normal 46-116 [facility] Comment on above: Performed By: #### T SH, CMP, LIPID #### [facility] [address] [address] [address] Chanel Manriquez ALT [Catalytic activity/Vol] 17 U/L Normal 14-59 [facility] Comment on above: Performed By: #### T SH, CMP, LIPID #### [facility] [address] [address] [address] Chanel Manriquez Anion gap [Moles/Vol] 10.5 mmol/L Normal [facility] Comment on above: Performed By: #### T SH, CMP, LIPID #### [facility] [address] [address] [address] Chanel Manriquez AST [Catalytic activity/Vol] 15 U/L Normal 15-37 [facility] Comment on above: Performed By: #### T SH, CMP, LIPID #### [facility] [address] [address] [address] Chanel Manriquez Bilirubin [Mass/Vol] 0.5 mg/dL Normal 0.2-1.0 [facility] Comment on above: Performed By: #### T SH, CMP, LIPID #### [facility] [address] [address] [address] Chanel Manriquez Calcium [Mass/Vol] 8.7 mg/dL Normal 8.5-10.1 [facility] [place] Comment on above: Performed By: #### T SH, CMP, LIPID #### [facility] [address] [address] [address] Chanel Manriquez Chloride [Moles/Vol] 104 mmol/L Normal 98-107 [facility] Comment on above: Performed By: #### T SH, CMP, LIPID #### [facility] [address] [address] [address] Chanel Manriquez CO2 [Moles/Vol] 28.4 mmol/L Normal 21.0-32.0 [facility] Comment on above: Performed By: #### T SH, CMP, LIPID #### [facility] [address] [address] [address] Chanel Manriquez Creatinine [Mass/Vol] 0.79 mg/dL Normal 0.55-1.02 [facility] Comment on above: Performed By: #### T SH, CMP, LIPID #### [facility] [address] [place] [address] Dr. Chanel Manriquez EGFR-AF CAMEROONIAN >60 Normal >=60 [facility] Comment on above: Performed By: #### T SH, CMP, LIPID #### [facility] [address] [place] [address] Dr. Chanel Manriquez EGFR-NON AF CAMEROONIAN >60 Normal >=60 [facility] Comment on above: Performed By: #### T SH, CMP, LIPID #### [facility] [address] [place] [address] Dr. Chanel Manriquez Globulin (S) [Mass/Vol] 3.9 g/dL Normal [facility] Comment on above: Performed By: #### T SH, CMP, LIPID #### [facility] [address] [place] [address] Dr. Chanel Manriquez Glucose [Mass/Vol] 101 mg/dL Normal 74-106 [facility] Comment on above: Performed By: #### T SH, CMP, LIPID #### [facility] [address] [place] [address] Dr. Chanel Manriquez Potassium [Moles/Vol] 3.9 mmol/L Normal 3.5-5.1 [facility] Comment on above: Performed By: #### T SH, CMP, LIPID #### [facility] [address] [address] [address] Chanel Manriquez Protein [Mass/Vol] 7.3 g/dL Normal 6.4-8.2 [facility] Comment on above: Performed By: #### T SH, CMP, LIPID #### [facility] [address] [address] [address] Chanel Manriquez Sodium [Moles/Vol] 139 mmol/L Normal 136-145 [facility] Comment on above: Performed By: #### T SH, CMP, LIPID #### [facility] [address] [address] [address] Chanel Manriquez Urea nitrogen [Mass/Vol] 13.0 mg/dL Normal 7.0-18.0 [facility] Comment on above: Performed By: #### T SH, CMP, LIPID #### [facility] [address] [place] [address] Dr. Chanel Manriquez Urea nitrogen/Creatinin e [Mass ratio] 16.5 mg/mg Normal [facility] Comment on above: Performed By: #### T SH, CMP, LIPID #### [facility] [address] [address] [address] Chanel Manriquez TSHon 11-16-2022 TSH 3.672 uIU/mL Normal 0.358-3.740 [facility] Comment on above: Performed By: #### T SH, CMP, LIPID #### [facility] [address] [place] [address] Dr. Chanel Manriquez MG MAMM SCREEN 3D MELISSA CADon 06-19-2022 MG MAMM SCREEN 3D MELISSA CAD Patient: MILDRED REED Exam Date: 06/19/2022 : 1980 Gender:F Ordering : DR CESAR LUTZ . Admission #: [id number] Family : DR JULIA MITCHELL M.D. Order #: [id number] CLICK HERE TO VIEW EXAM RADIOLOGY REPORT [...] lung cancer at age 68. LOCATION: [facility] BREAST COMPOSITION: Scattered areas fibroglandular density. [...] Clifton Huntley M.D. on 06/20/2022 at 14:07 [facility] PAP ACOG PANEL 2: 30 to 65on 04-16-2022 . . Normal [facility] Comment on above: Result Comment: Perf ormed at: WB Performed By: #### [id number] #### [facility] [address] [address] [address] Chanel Manriquez Age Gdln ACOG Testing 30-65 Normal [facility] Comment on above: Performed By: #### [id number] #### [facility] [address] [address] [address] Chanel Manriquez DIAGNOSIS: Comment Normal [facility] Comment on above: Result Comment: NEGA TIVE FOR INTRAEPITHELIAL LESION OR MALIGNANCY. Performed at: WB Performed By: #### [id number] #### [facility] [address] [address] [address] Chanel Manriquez HPV Aptima Negative Normal Negative [facility] Comment on above: Result Comment: This nucleic acid amplification test detects fourteen high-risk HPV types (16,18,31,33,35,39,45,51,52,56,58,59,66,68) without differentiation. Performed at: =G Performed By: #### [id number] #### [facility] [address] [place] [address] Dr. Chanel Manriquez Methodology: Comment Normal [facility] Comment on above: Result Comment: This liquid based ThinPrep(R) pap test was screened with the use of an image guided system. Performed at: WB Performed By: #### [id number] #### [facility] [address] [place] [address] Dr. Chanel Manriquez Note: Comment Normal [facility] Comment on above: Result Comment: The Pap smear is a screening test designed to aid in the detection of premalignant and malignant conditions of the uterine cervix. It is not a diagnostic procedure and should not be used as the sole means of detecting cervical cancer. Both false-positive and false-negative reports do occur. . Performed at: WB Performed By: #### [id number] #### [facility] [address] [place] [address] Dr. Chanel Manriquez Performed by: Comment Normal [facility] Comment on above: Result Comment: Jasbir Young, Mosquito Sprayer (ASCP) Performed at: WB Performed By: #### [id number] #### [facility] [address] [place] [address] Dr. Chanel Manriquez Specimen adequacy: Comment Normal [facility] Comment on above: Result Comment: Sati sfactory for evaluation. Endocervical and/or squamous metaplastic cells (endocervical component) are present. Performed at: WB Performed By: #### [id number] #### [facility] [address] [place] [address] Dr. Chanel Manriquez US THYROIDon 02-09-2022 US [...] one year is recommended. TR 4: [employer] [place] [employer] TI-RADS committee's white paper recommendations for thyroid lesions classified as TR4 (moderately suspicious) are listed below: > 1.0 cm. Follow-up ultrasound in 1, 2, 3, and 5 years. > 1.5 cm. FNA. J. Am Ava Radiol 2017;14:587-595. Electronically authenticated by: CLIFTON HUNTLEY Date: 2022-02-09 10:40 Normal [facility] SURGICAL PATHOLOGYon 019 SURGICAL PATHOLOGY Specimen #: [id number] Submitting Physician: GIDEON PRYOR MD FINAL DIAGNOSIS Outside slides [id number], [id number], B1; 04/06/2019; [facility] [place]: 1. Right thyroid and partial [...] Dr. Vicki Badillo, a colleague on the [facility] head and neck pathology service was consulted, and she agrees with the diagnoses. If you would like to discuss this case, please contact my office at [phone]. MAXIM/kmr 04/12/19 Efraín Wayne M.D. (Electronic Signature) SPECIMEN SUBMITTED A: 17 SLIDES ([id number]) CLINICAL DATA None provided. SLIDE/BLOCK DESCRIPTION A. 17 SLIDES ([id number]): Date of Report: 04/13/2019 Date of Procedure: 04/09/2019 Date of Receipt: 04/09/2019 Submitted by: GIDEON PRYOR MD Location: Diagnostic interpretation performed at [facility], [address] [place] [address]. CLIA Number: [id number] Normal [facility] Comment on above: Performed By: #### S #### See report for performing lab information. Vital Signs Date Time Vital Sign Value Performing Clinician Facility 02-22-2025 15:030400 Body height 154.94 cm [facility] 02-22-2025 15:030400 Body mass index (BMI) [Ratio] 34.9 kg/m2 [facility] 02-22-2025 15:030400 Body weight 83.91 kg [facility] 02-22-2025 15:03-0400 Diastolic blood pressure 81 mm[Hg] [facility] 02-22-2025 15:03-0400 Heart rate 79 /min [facility] 02-22-2025 15:03-0400 Systolic blood pressure 121 mm[Hg] [facility] 01-12-2025 14:31-0400 Body height 154.9 cm Patrizia Fernández MD Work Phone: [facility] 01-12-2025 14:31-0400 Body mass index (BMI) [Ratio] 35.9 kg/m2 Patrizia Fernández MD Work Phone: [facility] 01-12-2025 14:31-0400 Body weight 86.18 kg Patrizia Fernández MD Work Phone: [facility] 01-12-2025 14:31-0400 Diastolic blood pressure 89 mm[Hg] Patrizia Fernández MD Work Phone: [facility] 01-12-2025 14:31-0400 Heart rate 79 /min Patrizia Fernández MD Work Phone: [facility] 01-12-2025 14:31-0400 Systolic blood pressure 135 mm[Hg] Patrizia Fernández MD Work Phone: [facility] 06-30-2024 14:22-0400 Body height 154.9 cm Patrizia Fernández MD Work Phone: [facility] 06-30-2024 14:22-0400 Body mass index (BMI) [Ratio] 35.9 kg/m2 Patrizia Fernández MD Work Phone: [facility] 06-30-2024 14:22-0400 Body weight 86.18 kg Patrizia Fernández MD Work Phone: [facility] 06-30-2024 14:22-0400 Diastolic blood pressure 81 mm[Hg] Patrizia Fernández MD Work Phone: [facility] 06-30-2024 14:22-0400 Systolic blood pressure 128 mm[Hg] Patrizia Fernández MD Work Phone: [facility] 12-08-2023 15:00-0500 Body height 154.94 cm Julia Mitchell Other [employer] Other 12-08-2023 15:00-0500 Body mass index (BMI) [Ratio] 35.33 kg/m2 Julia Mitchell Other [employer] Other 12-08-2023 15:00-0500 Body weight 84.82 kg Julia Mitchell Other [employer] Other 12-08-2023 15:00-0500 Diastolic blood pressure 81 mm[Hg] Julia Mitchell Other [employer] Other 12-08-2023 15:00-0500 Systolic blood pressure 121 mm[Hg] Julia Mitchell Other [employer] Other 02-04-2023 11:00-0400 Body height 154.94 cm Julia Mitchell Other [employer] Other 02-04-2023 11:00-0400 Body mass index (BMI) [Ratio] 35.9 kg/m2 Julia Mitchell Other [employer] Other 02-04-2023 11:00-0400 Body weight 86.18 kg Julia Mitchell Other [employer] Other 02-04-2023 11:00-0400 Diastolic blood pressure 82 mm[Hg] Julia Mitchell Other [employer] Other 02-04-2023 11:00-0400 SaO2% (BldA) [Mass fraction] 97 % Julia Mitchell Other [employer] Other 02-04-2023 11:00-0400 Systolic blood pressure 122 mm[Hg] Julia Mitchell Other [employer] Other 11-21-2022 16:00-0500 Body height 154.94 cm Julia Mitchell Other [employer] Other 11-21-2022 16:00-0500 Body mass index (BMI) [Ratio] 36.46 kg/m2 Julia Mitchell Other [employer] Other 11-21-2022 16:00-0500 Body weight 87.54 kg Julia Mitchell Other [facility] [employer] Other 11-21-2022 16:00-0500 Diastolic blood pressure 88 mm[Hg] Julia Mitchell Other [employer] Other 11-21-2022 16:00-0500 SaO2% (BldA) [Mass fraction] 97 % Julia Mitchell Other [facility] [employer] Other 11-21-2022 16:00-0500 Systolic blood pressure 132 mm[Hg] Julia Mitchell Other [employer] Other Encounters Encounter Date Encounter Type Care Provider Facility Start: 02-22-2025 End: 02-22-2025 ambulatory [facility] Work Phone: Start: 02-22-2025 End: 02-22-2025 Patient encounter procedure [facility] Work Phone: Start: 01-26-2025 End: 01-26-2025 Telephone encounter Patrizia Fernández MD Work Phone: [facility] Comment on above: lab results Start: 01-22-2025 Non-patient / Non-visit [facility] Work Phone: Start: 01-17-2025 Patient encounter status [facility] Start: 01-12-2025 End: 01-12-2025 Office outpatient visit [...] Start: 03-01-2024 End: 03-01-2024 ambulatory Clifton Huntley Facility:[facility] Start: 03-01-2024 End: 03-01-2024 ambulatory MD Clifton Huntley Work Phone: [facility] Work Phone: Start: 03-01-2024 End: 03-01-2024 Departed Referred MD Clifton Huntley Work Phone: [facility] Start: 02-11-2024 End: 02-11-2024 ambulatory PATRIZIA H TIMMIS Not Available Start: 02-07-2024 Non-patient / Non-visit MD Pearce Work Phone: [facility] Work Phone: Start: 01-22-2024 Non-patient / Non-visit MD Pearce Work Phone: [facility] Work Phone: Start: 12-17-2023 Non-patient / Non-visit MD Pearce Work Phone: [facility] Work Phone: Start: 12-08-2023 End: 12-08-2023 ambulatory Julia Mitchell Other [employer] Other Start: 12-08-2023 Encounter for genera l adult medical examination without abnormal findings Julia Mitchell [facility] Start: 12-08-2023 Periodic preventive med est patient 40-64yrs Julia Mitchell [facility] Start: 07-02-2023 End: 07-02-2023 ambulatory Julia Mitchell Other [employer] Other Start: 07-02-2023 Telephone encounter Julia Mitchell [facility] Start: 02-04-2023 End: 02-04-2023 ambulatory Julia Mitchell Other [employer] Other Start: 02-04-2023 Office outpatient vi sit 15 minutes Julia Mitchell [facility] Start: 01-31-2023 End: 01-31-2023 ambulatory Julia Mitchell Other [employer] Other Start: 01-31-2023 Telephone encounter Julia Mitchell [facility] Start: 01-25-2023 End: 01-26-[address] JULIA MITCHELL Facility:[facility]1 Start: 01-15-[address] JULIA MITCHELL Facil ity:[facility]1 Start: 11-22-2022 Encounter for genera l adult medical examination without abnormal findings DR JULIA MITCHELL [facility] Start: 11-21-2022 End: 11-21-2022 ambulatory Julia Mitchell Other [employer] Other Start: 11-21-2022 Encounter for genera l adult medical examination without abnormal findings Julia Mitchell [facility] Start: 11-21-2022 Periodic preventive med est patient 40-64yrs Julia Mitchell [facility] Start: 11-16-2022 End: 11-17-[address] JULIA MITCHELL Facility:[facility]1 Start: 11-16-2022 End: 11-17-2022 Encounter for general adult medical examination without abnormal findings DR JULIA MITCHELL Facility:[facility] Start: 11-13-2022 End: 11-13-2022 ambulatory Julia Mitchell Other [employer] Other Start: 11-13-2022 Encounter for genera l adult medical examination without abnormal findings Julia Mitchell [facility] Start: 11-13-2022 Telephone encounter Julia Mitchell [facility] Start: 08-13-2022 End: 11-22-[address] JULIA MITCHELL Facility:[facility] Start: 06-19-2022 End: 06-20-[address] JULIA MITCHELL Facility:[facility] Start: 04-10-2022 End: 04-10-[address] CESAR LUTZ . Facility:[facility] Start: 04-10-2022 Gynecological examin ation normal Julia Mitchell Other [employer] Other Start: 02-08-2022 End: 02-09-[address] PATRIZIA FERNÁNDEZ Facility:[facility] Start: 03-13-2021 Adult health examination Lou Mitchell Other [employer] Other Procedures Date Procedure Procedure Detail Performing Clinician Start: 12-17-2024 soft tissue head & neck real time [...] 07-04-2024 Influenza vaccination Influenza Vacc ine (#1) [facility] Start: 06-30-2024 End: 06-30-2024 Patient encounter procedure 06/30/2024 2:30 PM EDT Office Visit [facility] [address] [facility] [email or web address] [address] [place] [id number] Patrizia Fernández MD [address] [facility] [address] [place] [address] Arrived [facility] Comment on above: Arrived Start: 2018 Screening for malign ant neoplasm of breast Mammogram [facility] Start: 2008 Screening for malign ant neoplasm of cervix [facility] Start: 1999 Screening for malign ant neoplasm of cervix Pap Smear [facility] Start: 1978 Screening for malign ant neoplasm of colon [facility] Immunizations Immunization Date Immunization Notes Care Provider Fa cility 08-06-2021 influenza virus vacc ine, unspecified formulation Patrizia Fernández MD Work Phone: [facility] Payers Date Payer Category Payer [facility] [id number] 2022 Unknown BCBS BCBS [id number] 2022-Present [phone] [address] [place] [address] [id number] 2022 Blue Cross Blue Shield [id number] 2019 Unknown [id number] 1978 Unknown [id number] 2.16.840.1.396859.3.579.2. 593 1978 Unknown [id number] 2.16.840.1.213805.3.579.2. 593 1978 Unknown [id number] 2.16.840.1.103193.3.579.2. 593 1978 Unknown [id number] 2.16.840.1.709335.3.579.2. 593 1978 Unknown [id number] 2.16.840.1.199928.3.579.2. 593 1978 Unknown [id number] 2.16.840.1.003036.3.579.2. 593 1978 Unknown [id number] 2.16.840.1.758570.3.579.2. 593 1978 Unknown [id number] 2.16.840.1.819987.3.579.2. 1259 1978 Unknown [id number] 2.16.840.1.288297.3.579.2. 1259 1978 Unknown [id number] 2.16.840.1.378740.3.579.2. 1259 1978 Unknown [id number] 2.16.840.1.628922.3.579.2. 1259 1959 Self-pay Medicaid [id number] Unknown [id number] Unknown [id number] [id number]. 531 Social History Date Type Detail Facility Start: 06-30-2024 End: 01-12-2025 Sex Assigned At [employer] Other Start: 02-04-2023 End: 02-22-2025 Tobacco smoking status NHIS Never smoked tobacco (finding) [facility] Start: 1980 Sex Assigned At Female [facility] Start: 02-11-2024 Tobacco use and exposure Smokeless tobacco non-user [facility] Start: 06-30-2024 End: 01-12-2025 Alcoholic beverage intake Ex-drinker (finding) [facility] Start: 06-30-2024 End: 01-12-2025 History of Social function [facility] Start: 1980 Sex assigned at Not on file [facility] Start: 02-22-2025 Sex Female (finding) [facility] NEGATED: Highlighted row [facility] Clinical Notes 11-13-2022 to 01-26-2025 Telephone Encounter - Patrizia Fernández MD - 01/26/2025 11:40 AM EDTTelephone Encounter - Patrizia Fernández MD - 01/26/2025 11:40 AM EDTTelephone Encounter - Cris Fernández - 01/26/2025 10:46 AM EDT Note Date & Type Note Facility 01-26-2025 Telephone encount er Note Tell pt TSH normal. One year refill of synthroid sent in to [facility] [employer] [facility] 01-26-2025 Miscellaneous Notes Formattin g of this note might be different from the original. Tell pt TSH normal. One year refill of synthroid sent in to [facility] [employer] Send for labs. Pt called in yesterday to see if our office had received her lab results from [facility]. I told her No, we had not received them. [facility] send over the lab results today. Pt would like to know the results of them. documented in this encounter [facility] 01-26-2025 Telephone encount er Note Send for labs. [facility] 01-26-2025 Telephone encount er Note Pt called in yesterday to see if our office had received her lab results from [facility]. I told her No, we had not received them. [facility] send over the lab results today. Pt would like to know the results of them. [facility] 01-12-2025 History of Presen t illness Narrative Subjective Patient ID: Mildred Reed is a 44 y.o. female who presents for Thyroid Nodule (Follow up ultrasound [facility] 12/17/24) US shows a [id number] eft thyroid nodule. No sig change compared [...] the level. documented in this encounter [facility] 06-30-2024 History of Presen t illness Narrative Subjective Patient ID: Mildred Reed is a 43 y.o. female who presents for Thyroid Nodule (6 mo check with ultrasound [facility] 06/21/24) US shows a [id number] left nodule compared to [id number] in January Family History Problem Relation Name [...] 6 mo documented in this encounter [facility] 12-08-2023 Evaluation note Encounter Date Diagnosis Assessment [...] further guidance if her test is positive. [facility] Other 08-30-2023 Evaluation note* Encounter Date Diagnosis Assessment Notes Treatment Notes Treatment Clinical Notes Jun, Screening mammogram for breast cancer (ICD-10 - Z12.31) [facility] Other 04-04-2023 Evaluation note* Encounter Date Diagnosis Assessment Notes Treatment Notes Treatment Clinical Notes Feb, Hypertension (ICD-10 - I10) Present readings are normal. Continue present med. Discussed decreasing salt and starting exercise to improve BP. Would not add or increase BP med at this time. Pt in agreement. [facility] Other 01-19-2023 Evaluation note* Encounter Date Diagnosis [...] (ICD-10 - E06.3) Continued followup w ENT [facility] Other 01-11-2023 Evaluation note* Encounter Date Diagnosis Assessment Notes Treatment Notes Treatment Clinical Notes Nov, Wellness examination (ICD-10 - Z00.00) [employer] Other Evaluation noteNo [employer] Other Evaluation noteNo assessment information available [facility] Work Phone: Evaluation note* Diagnosis Malignant tumor of thyroid gland (CMS/HCC)- Primary Malignant neoplasm of thyroid gland [facility] Diagnosis Papillary microcarcinoma of thyroid (CMS/HCC)- Primary [facility] Diagnosis Acquired hypothyroidism (CMS/HCC)- Primary Unspecified hypothyroidism [facility] Diagnosis Onset Date Resolution Status Admit Date Colon cancer screening acute Ap ril 2024 2:41pm [facility] Work Phone: Hisfvyj general Narrative - Reported* Type Description Date Medical History MNG Medical History Hshimoto's disease Medical History Hypertension Medical History Hypothyroidism Medical History Anxiety Surgical History C section x2 Surgical History Right Carpal Tunnel Surgical History Thyroidectomy (right) Surgical History Thyroidectomy (piece of left) [employer] Other History general Narrative - Reported* Type Description Date Medical History MNG Medical History Hshimoto's disease Medical History Hypertension Medical History Hypothyroidism Medical History Anxiety Surgical History C section x2 Surgical History Right Carpal Tunnel Surgical History Thyroidectomy (right) Surgical History Thyroidectomy (piece of left) Hospitalization History SEE SURGICAL HX [employer] Other Summary Purpose Family History No Family History Records FoundNo Family History Records FoundNo Family History Records FoundNo Family History Records Found Advance Directives Advance Directive Response Recorded Date/ Time Advance Directives No July 10:57am Chief Complaint and Reason for Visit Chief Complaint Admit Date Wellness February 22, 2025 2:4 1pm Reason for Visit Admit Date Colon cancer screening February 22, 2025 2:41pm Additional Source Comments INFORMATION SOURCE (unrecogn ized section and content) DATE CREATED AUTHOR 04/14/2019 [facility] DATE CREATED AUTHOR AUTHOR'S ORGANIZ ATION 02/01/2023 [facility] DATE CREATED AUTHOR AUTHOR'S ORGANIZ ATION 03/05/2024 [facility] DATE CREATED AUTHOR AUTHOR'S ORGANIZ ATION 01/15/2025 [facility] EPIC REASON FOR VISIT (unrecogniz ed section and content) Reason Comments Thyroid Nodule 6 mo check with ultr asound [facility] 06/21/24 Reason Comments Thyroid Nodule Follow up ultrasound [facility] 12/17/24 Reason Onset Date Comments lab results 01/26/2025 Care Teams (unrecognized sec tion and content) [...] March 01, 2024 End: March 01, 2024 [employer] Relationship Specialty Start Date End Date Julia Mitchell MD [address] [facility] [place] [phone] PCP - General Family Medicine 12/19/23 [employer] Relationship Specialty Start Date End Date Julia Mitchell MD [address] [facility] [place] [place] [phone] PCP - General Family Medicine 12/19/23 [employer] Relationship Specialty Start Date End Date Julia Mitchell MD [address] [facility] [place] [place] [phone] PCP - General Family Medicine 12/19/23 [employer] Relationship Specialty Start Date End Date Julia Mitchell MD [address] [facility] [place] [phone] PCP - General Family Medicine 12/19/23 [employer] Relationship Specialty Start Date End Date Julia Mitchell MD [address] [facility] [place] [place] [phone] PCP - General Family Medicine 12/19/23 Team Status: Active Member Role Status Dates Julia Mitchell MD Primary Care Provider Active Team Status: Active Member Role Status Dates Julia Mitchell MD Primary Care Provide r, Attending Provider Active Start: January 22, 2025 Team Status: Inactive Member Role Status Dates Julia Mitchell MD Primary Care Provide r, Attending Provider Active Start: February 22, 2025 End: February 22, 2025 Goals (unrecognized section and content) Goals may [...] BE BASED ON THE PRIMARY CLINICAL RECORDS. [facility] [employer] provides no warranty or guarantee of the accuracy or completeness of information in this document.
== END 2025-07-12 13:47 | disposition home or self-care (01) ==
LOC: MAMMO 13:48
PROVIDERS: PCP Family Medicine; Visit Provider Family Medicine
DX: Z12.31 Encounter for screening mammogram for malignant neoplasm of breast (principal); Z80.3 Family history of malignant neoplasm of breast; Z80.7 Family history of other malignant neoplasms of lymphoid, hematopoietic and related tissues; Z80.1 Family history of malignant neoplasm of trachea, bronchus and lung; Z80.8 Family history of malignant neoplasm of other organs or systems
CPT/HCPCS: 77063; 77067